=== PATIENT | female | born 1990 | race Caucasian/White ===

== ENCOUNTER 2022-01-06 19:54 | Emergency (ER) | payer OTHER, MEDICAID, SELFPAY ==
[2022-01-06 20:01] VITALS: BP 136/80; PULSE 87; RESP 20; TEMP 36.7; O2SAT 97; BMI 25.3
[2022-01-06 20:29] LABS: Add Manual Diff / Slide Review NO; Basophils Absolute Auto 100 /uL (0-100); Basophils Percent Auto 0.9 % (0-2); Eosinophils Absolute Auto 100 /uL (0-450); Eosinophils Percent Auto 1.1 % (2-4); Hematocrit 42.4 % (36-46); Hemoglobin 14.1 g/dL (12.0-16.0); Lymphocytes Absolute Auto 2800 /uL (1100-4500); Lymphocytes Percent Auto 40.3 % (25-40); Mean Corpuscular HGB Conc 33.3 % (30-36); Mean Corpuscular Hemoglobin 28.8 PG (26-34); Mean Corpuscular Volume 86.4 fL (80-100); Monocytes Absolute Auto 500 /uL (0-900); Monocytes Percent Auto 7.2 % (3-14); Neutrophils Absolute Auto 3500 /uL (1500-7000); Neutrophils Percent Auto 50.5 % (50-75); Platelet Count 252 X10^3/uL (150-400); Red Cell Distribution Width 13.8 % (11.6-14.8); White Blood Cell Count 6.9 X10^3/uL (4.5-11.0)
[2022-01-06 20:50] LABS: Alanine Aminotransferase 35 IU/L (<35); Albumin 5.2 g/dL (3.5-5.0); Albumin Globulin Ratio 1.5 (1.0-2.8); Alkaline Phosphatase 54 U/L (38-126); Aspartate Aminotransferase 30 IU/L (14-36); BUN Creatinine Ratio 9.7 (6-22); Bilirubin Total 0.7 mg/dL (0.2-1.3); Blood Urea Nitrogen 7 mg/dL (7-17); Calcium 9.4 mg/dL (8.4-10.2); Carbon Dioxide 26 mmol/L (22-32); Chloride 103 mmol/L (98-107); Estimated Glomerular Filt Rate > 60 mL/min (>60); Globulin 3.5 g/dL (1.7-4.1); Glucose 94 mg/dL (70-100); HEMOLYSIS 21 (0-50); Potassium 3.7 mmol/L (3.4-5.1); Sodium 140 mmol/L (137-145); Total Protein 8.7 g/dL (6.3-8.2)
--- NOTE | 2022-01-06 21:35 | ED.GIBLEED ---
HPI - GI Bleed General Chief complaint: GI Bleed Stated complaint: blood in stool, has hx of hemorroids Time Seen by Provider: 01/06/22 21:23 Source: patient Mode of arrival: Ambulatory History of Present Illness HPI Narrative: Patient is a 31-year-old female. Has a history of blood in her stool and also history of hemorrhoids. Has had a colonoscopy recently because of this. Is here for evaluation of multiple episodes of diarrhea and blood in her stool. She is also having discomfort with going to the bathroom. She also did pass out a couple days ago. Is also having some abdominal discomfort. Related Data Allergies Allergy/AdvReac Type Severity Reaction Status Date / Time acetaminophen Allergy Severe Hives Verified 01/06/22 20:01 diphenhydramine Allergy Hives Verified 01/06/22 20:01 [From Benadryl] metoclopramide [From Reglan] Allergy Hives Verified 01/06/22 20:01 Review of Systems Constitutional Constitutional: Denies fever(s) Cardiovascular Cardiovascular: Reports system reviewed and no additional complaints, except as documented Respiratory Respiratory: Reports system reviewed and no additional complaints, except as documented Gastrointestinal Gastrointestinal: Reports as per HPI and Reports system reviewed and no additional complaints, except as documented Genitourinary Genitourinary: Denies dysuria Integumentary/Breasts Skin/Breast: Reports system reviewed and no additional complaints, except as documented Neurologic Neurologic: Reports system reviewed and no additional complaints, except as documented Hematologic/Lymphatic On Anticoagulants: No Patient History Medical History Hemorrhoids Social History Smoking Status: Never smoker Smoking Status: Never smoker Substance Use Type: does not use Exam Initial Vital Signs Initial Vital Signs: Vital Signs Temperature 98.1 F 01/06/22 20:01 Pulse Rate 87 01/06/22 20:01 Respiratory Rate 20 01/06/22 20:01 Blood Pressure 136/80 01/06/22 20:01 Pulse Oximetry 97 01/06/22 20:01 Const General: cooperative and comfortable HENMT Head: normal to inspection Resp Effort & Inspection: normal respiratory effort Cardio Rate: regular rate GI Rectal Exam: fissure and hemorrhoids (Internal hemorrhoid) Skin General: no rashes or lesions noted Neuro General: patient alert, patient awake and moves all extremities Extrem General: normal to inspection and capillary refill normal Course Orders Ordered: ED Orders 01/06/22 20:08 EKG-12 Lead Stat 01/06/22 20:17 Complete Blood Count AUTO DIFF Stat Comprehensive Metabolic Panel Stat Vital Signs Vital signs: Vital Signs - 8 hr 01/06/22 21:52 Pulse Rate 74 Blood Pressure 130/79 Pulse Oximetry 100 MDM - GI Bleed Lab Data Attestation: I reviewed the patient's lab results. Result diagrams: 01/06/22 20:17 01/06/22 20:17 Labs: Lab Results 01/06/22 01/06/22 Range/Units 20:17 20:17 WBC 6.9 (4.5-11.0) X10^3/uL RBC 4.90 (4.0-5.2) X10^6/uL Hgb 14.1 (12.0-16.0) g/dL Hct 42.4 (36-46) % MCV 86.4 (80-100) fL MCH 28.8 (26-34) PG MCHC 33.3 (30-36) % RDW 13.8 (11.6-14.8) % Plt Count 252 (150-400) X10^3/uL Neut % (Auto) 50.5 (50-75) % Lymph % (Auto) 40.3 H (25-40) % [place] % (Auto) 7.2 (3-14) % Eos % (Auto) 1.1 L (2-4) % Baso % (Auto) 0.9 (0-2) % Neut # (Auto) 3500 (1865-0200) /uL Lymph # (Auto) 2800 (2654-5534) /uL [place] # (Auto) 500 (0-900) /uL Eos # (Auto) 100 (0-450) /uL Baso # (Auto) 100 (0-100) /uL Sodium 140 (137-145) mmol/L Potassium 3.7 (3.4-5.1) mmol/L Chloride 103 (98-107) mmol/L Carbon Dioxide 26 (22-32) mmol/L BUN 7 (7-17) mg/dL Creatinine 0.72 (0.52-1.04) mg/dL Estimated GFR > 60 (>60) mL/min BUN/Creatinine Ratio 9.7 (6-22) Glucose 94 (70-100) mg/dL Calcium 9.4 (8.4-10.2) mg/dL Total Bilirubin 0.7 (0.2-1.3) mg/dL AST 30 (14-36) IU/L ALT 35 H (<35) IU/L Alkaline Phosphatase 54 (38-126) U/L Total Protein 8.7 H (6.3-8.2) g/dL Albumin 5.2 H (3.5-5.0) g/dL Globulin 3.5 (1.7-4.1) g/dL Albumin/Globulin Ratio 1.5 (1.0-2.8) Point of Care Testing Test Results Negative Urine Dip Bedside Urine Glucose Negative Bedside Urine Bilirubin - Negative Bedside Urine Ketone - Negative Urine Specific [place] 1.030 Bedside Urine Occult Blood - Negative Bedside Urine pH 6.0 Bedside Urine Protein - Negative Bedside Urine Urobilinogen - Negative Bedside Urine Nitrite - Negative Bedside Urine Leukocytes - Negative Esterase MDM Narrative Medical decision making narrative: Labs unremarkable, vital signs unremarkable, she does have what appears to be Herman and also a palpable internal hemorrhoid which very well could be the cause of her presenting symptoms. She otherwise has a benign exam. No indication for blood transfusion. We can hold on a CT scan for now as I have very low suspicion for an acute intra-abdominal surgical issue given her clinical presentation in her exam. Rectal exam was performed with nursing staff at bedside as a hospitalist nocturnist physician. Patient was given return precautions and follow-up instructions. She expressed understanding and agreement. Discharge Plan Departure Patient Disposition: Home Clinical Impression: Hemorrhoids, Bright red rectal bleeding Instructions: DI for Hemorrhoids, Gastrointestinal Bleeding Activity Restrictions/Additional Instructions: I do recommend that you continue to follow all the instructions given to you by the GI providers. You can give them a call to let them know that your symptoms have returned. You can also tried anti diarrheal medicine such as Imodium/loperamide. Return to the emergency department for any new or worsening symptoms.
[2022-01-06 21:52] VITALS: BP 130/79; PULSE 74; O2SAT 100
== END 2022-01-06 21:53 | disposition home or self-care (01) ==
PROVIDERS: Emergency Provider Emergency Medicine
DX: K62.5 Hemorrhage of anus and rectum (principal); K64.8 Other hemorrhoids
CPT/HCPCS: 36415; 80053; 81003; 81025; 85025; 93005; 99283

== ENCOUNTER 2022-03-17 20:37 | Emergency (ER) | payer OTHER, MEDICAID, SELFPAY ==
[2022-03-17 20:47] VITALS: BP 104/63; PULSE 89; RESP 14; TEMP 36.3; O2SAT 96; BMI 24.0
[2022-03-17 22:42] LABS: RBC Urine 0-1/HPF (0-5/HPF); Squamous Epithelial Cell Urine 0-1 /HPF (0-5/HPF); WBC Urine 30-100/HPF (0-5/HPF)
[2022-03-17 22:43] LABS: Bacteria Urine Moderate (10-30); Culture Indicated Urine Specimen Cultured
--- NOTE | 2022-03-17 23:33 | ED.FEMALEGU ---
HPI - Female Genitourinary General Chief complaint: Urogenital-Female Stated complaint: bloody urine, pain x 5 days Time Seen by Provider: 03/17/22 23:28 Source: patient Mode of arrival: Ambulatory History of Present Illness HPI Narrative: Patient here for urinary frequency urgency and dysuria for the past 5 days. History UTI in the past. Denies any fever. No CVA pain. Has had hematuria. She does have a family doctor but has not had time to see family doctor due to school and taking care of family. Related Data Previous Rx's Medication Instructions Recorded nitrofurantoin 100 mg PO Q12H 3 days #6 caps 03/17/22 monohydrate/macrocrystals 100 mg capsule (Macrobid) Allergies Allergy/AdvReac Type Severity Reaction Status Date / Time acetaminophen Allergy Severe Hives Verified 01/06/22 20:01 diphenhydramine Allergy Hives Verified 01/06/22 20:01 [From Benadryl] metoclopramide [From Reglan] Allergy Hives Verified 01/06/22 20:01 Review of Systems Review of Systems Narrative: GENERAL: Denies chills, fatigue, malaise, fever, sweats. HEENT: Denies sinus pain, ear pain, sore throat RESPIRATORY: Denies dyspnea, cough CARDIOVASCULAR: Denies chest pain, palpitations GASTROINTESTINAL: Denies nausea, vomiting, abdominal pain : Positive for urgency and dysuria, frequency, hematuria MUSCULOSKELETAL: denies muscle or bony pain SKIN: Denies rash, skin lesions NEUROLOGIC: Denies weakness, numbness ROS Unobtainable: All systems reviewed & are unremarkable except as noted in HPI and below Patient History Medical History Hemorrhoids alcohol intake frequency: a few times a week Substance Use Type: does not use Exam Narrative Exam Narrative: GENERAL: in no distress, not toxic not dyspneic HEAD: Normocephalic. EYES: Pupils equal round No scleral icterus. ENT: Mucous membranes moist. NECK: Trachea midline. GASTROINTESTINAL: Abdomen soft, non-tender, bowel sounds present no peritoneal signs. EXTREMITIES: No gross deformities. BACK: No flank tenderness. NEURO: AOx4. SKIN: Warm and dry PSYCH: Not anxious, is cooperative Initial Vital Signs Initial Vital Signs: Vital Signs Temperature 97.4 F L 03/17/22 20:47 Pulse Rate 89 03/17/22 20:47 Respiratory Rate 14 03/17/22 20:47 Blood Pressure 104/63 03/17/22 20:47 Pulse Oximetry 96 03/17/22 20:47 Oxygen Delivery Method 03/17/22 20:47 Course Course Course Narrative: No new issues during course of stay Orders Ordered: ED Orders 03/17/22 22:22 Urine Culture Stat Urine Microscopic Stat Discontinued Medications Nitrofurantoin Macrocrystals (Nitrofurantoin Er 100 Mg Capsule) 100 mg PO NOW ONE Stop: 03/17/22 23:34 Last Admin: 03/17/22 23:42 Dose: 100 mg Documented By: BRIAN Phenazopyridine HCl (Phenazopyridine 100 Mg Tablet) 100 mg PO NOW ONE Stop: 03/17/22 23:33 Last Admin: 03/17/22 23:42 Dose: 100 mg Documented By: BRIAN Reevaluation(s) Reevaluation #1: Reviewed results with patient. In no distress. Agrees with treatment plan. She does have a family doctor to follow up with. Time: 23:40 Vital Signs Vital signs: Vital Signs - 8 hr 03/17/22 23:47 Pulse Rate 72 Respiratory Rate 14 Blood Pressure 132/78 Pulse Oximetry 99 Oxygen Delivery Method Room Air MDM - Female Genitourinary Differential Diagnosis Differential diagnosis: Likely urinary tract infection and cystitis Lab Data Labs: Lab Results 03/17/22 Range/Units 22:22 Urine RBC 0-1/hpf (0-5/HPF) Urine WBC 30-100/hpf H (0-5/HPF) Ur Squamous Epith Cells 0-1 /hpf (0-5/HPF) Urine Bacteria Moderate (10-30) H (None) Ur Culture Indicated? Specimen cultured Point of Care Testing Test Results Negative Urine Dip Bedside Urine Glucose Negative Bedside Urine Bilirubin ++ 2 Bedside Urine Ketone - Negative Urine Specific [place] 1.015 Bedside Urine Occult Blood ++ Bedside Urine pH 6.5 Bedside Urine Protein + 30 Bedside Urine Urobilinogen 2+ 4mg Bedside Urine Nitrite + Positive Bedside Urine Leukocytes ++ 125 Esterase [facility] Narrative Medical decision making narrative: Appropriate for discharge home. Treat clinically for UTI. No imaging or blood work indicated. Patient has had UTIs in the past. Nontoxic. No fever here. No CT scan imaging indicated. Return precautions reviewed with patient. Patient does have a family doctor. She desires discharge home. Antibiotics started here in the department Discharge Plan Departure Patient Disposition: Home Clinical Impression: Urinary tract infection Instructions: DI for Urinary Tract Infection (UTI) Activity Restrictions/Additional Instructions: See family doctor next week for recheck. Return if worsening questions or concerns. Keep well hydrated. Prescription for antibiotics has been provided for you. Be sure to complete the antibiotics. Prescriptions: New nitrofurantoin monohyd/m-cryst [Macrobid] 100 mg capsule 100 mg PO Q12H 3 Days Qty: 6 0RF Rx Instructions: must administer with a meal/food Referrals: Renetta Mckeon ARNP [Primary Care Provider] - Visit Report Forms: Patient Portal/API
[2022-03-17] MEDS: NITROFURANTOIN ER 100 MG CAPSULE PO (23:42)
[2022-03-17] MEDS: PHENAZOPYRIDINE 100 MG TABLET PO (23:42)
[2022-03-17 23:47] VITALS: BP 132/78; PULSE 72; RESP 14; O2SAT 99
== END 2022-03-17 23:48 | disposition home or self-care (01) ==
PROVIDERS: Emergency Provider Emergency Medicine; PCP Nurse Practitioner Family
DX: N39.0 Urinary tract infection, site not specified (principal)
CPT/HCPCS: 81003; 81015; 81025; 87077; 87086; 87186; 99283

== ENCOUNTER 2022-04-27 09:12 | Emergency (ER) | payer OTHER, MEDICAID, SELFPAY ==
[2022-04-27 09:15] VITALS: BP 104/86; PULSE 85; RESP 15; TEMP 36.9; O2SAT 98; BMI 24.9
[2022-04-27 10:14] LABS: COVID19 -Nasal RAPID Negative (Negative)
[2022-04-27 11:12] VITALS: BP 110/69; PULSE 80
[2022-04-27 11:15] VITALS: BP 110/57; PULSE 87; RESP 17; O2SAT 98
[2022-04-27 12:20] VITALS: BP 110/69; PULSE 80; RESP 20; O2SAT 98
--- NOTE | 2022-04-27 12:42 | ED.URI ---
HPI - URI/Sore Throat General Chief Complaint: Upper Respiratory Symptoms Stated Complaint: Vomiting, sore throat, shaking, dehydrated Time Seen by Provider: 04/27/22 12:03 Source: patient Mode of arrival: Ambulatory History of Present Illness HPI Narrative: 31-year-old female, nonsmoker, presents emergency department with complaints of fatigue, night sweats, sore throat and constipation x2 days. Patient has a sick infant at home and is a online college student. Patient lives with her parents, who live in a separate part of the house. Patient endorses mild lower abdominal pain but denies any dysuria, frequency or urgency. Last menstrual period was over 3 weeks ago. Patient denies any known exposure to anyone else ill. Related Data Allergies Allergy/AdvReac Type Severity Reaction Status Date / Time acetaminophen Allergy Severe Hives Verified 04/27/22 09:15 diphenhydramine Allergy Hives Verified 04/27/22 09:15 [From Benadryl] metoclopramide [From Reglan] Allergy Hives Verified 04/27/22 09:15 Review of Systems Review of Systems Narrative: Narrative: GENERAL: Denies chills. See HPI HEENT: Denies sinus pain, ear pain, difficulty swallowing, dizziness. RESPIRATORY: Denies dyspnea, cough, wheezing, sputum. CARDIOVASCULAR: Denies chest pain, palpitations, edema. GASTROINTESTINAL: Denies nausea, vomiting, diarrhea. : Denies dysuria, frequency, incontinence, hematuria, urinary retention, flank pain. MSK: Denies weakness, joint pain, or bony pain. SKIN: Denies rash, skin lesions, or pruritis. NEUROLOGIC: Denies weakness, dizziness, headache, numbness, confusion. PSYCHIATRIC: No concerning psychosocial issues. Patient History Medical History Hemorrhoids Social History Smoking Status: Never smoker Smoking Status: Never smoker alcohol intake frequency: holidays/special occasions only Substance Use Type: marijuana Exam Narrative Exam Narrative: Exam Narrative: GENERAL: This is a well-nourished, well-developed patient, in no acute distress HEAD: Atraumatic. Normocephalic. EYES: Pupils equal round and reactive. Extraocular motions intact. No scleral icterus, injection or drainage. ENT: Nose without bleeding, purulent drainage. Throat without erythema, tonsillar hypertrophy or exudate. Airway patent. NECK: Trachea midline. No JVD or lymphadenopathy. Nontender. CARDIOVASCULAR: Regular rate and rhythm without murmurs, peripheral pulses intact, cap refill <2 sec. RESPIRATORY: Breath sounds equal and clear bilaterally. No wheezes, rales, or rhonchi. No cough. No increased respiratory effort. No accessory muscle use. GASTROINTESTINAL: Abdomen soft, mild lower abdominal discomfort and according to patient is distended. No guarding or rebound. No suprapubic pain. MSK: Moves all extremities. Normal range of motion, no clubbing or edema. Neurovascularly intact. NEURO: A&O x 3. SKIN: Warm, dry, no rashes or lesions noted. Initial Vital Signs Initial Vital Signs: Vital Signs Temperature 98.4 F 04/27/22 09:15 Pulse Rate 85 04/27/22 09:15 Respiratory Rate 15 04/27/22 09:15 Blood Pressure 104/86 04/27/22 09:15 Pulse Oximetry 98 04/27/22 09:15 Oxygen Delivery Method 04/27/22 09:15 Reviewed Course Orders Ordered: ED Orders 04/27/22 09:39 COVID19 -Nasal RAPID/Pre-Proc Stat Vital Signs Vital signs: Vital Signs - 8 hr 04/27/22 09:15 04/27/22 11:15 04/27/22 12:20 Temperature 98.4 F Pulse Rate 85 87 80 Respiratory Rate 15 17 20 Blood Pressure 104/86 110/57 L 110/69 Pulse Oximetry 98 98 98 Oxygen Delivery Method Room Air Room Air 04/27/22 11:12 Temperature Pulse Rate 80 Respiratory Rate Blood Pressure 110/69 Pulse Oximetry Oxygen Delivery Method MDM - URI/Sore Throat Differential Diagnosis Differential diagnosis: Likely upper respiratory infection Lab Data Labs: Lab Results 04/27/22 Range/Units 09:39 SARS-CoV-2 (PCR) Negative (Negative) Point of Care Testing Test Results Negative Urine Dip Bedside Urine Glucose Negative Bedside Urine Bilirubin - Negative Bedside Urine Ketone - Negative Urine Specific [place] 1.020 Bedside Urine Occult Blood - Negative Bedside Urine pH 6.0 Bedside Urine Protein - Negative Bedside Urine Urobilinogen - Negative Bedside Urine Nitrite - Negative Bedside Urine Leukocytes - Negative Esterase MDM Narrative Medical decision making narrative: 31-year-old female presents to the emergency department with complaints of viral-like symptoms. COVID test was negative. Urine test was negative for UTI or . Discussed plan of care with patient and to her decision-making, we will treat this as a viral infection with strict return precautions. Instructed patient to rest, hydrate and use [id number] medications as needed for comfort. Patient will follow-up with her GI doctor for her constipation. Patient was agreeable with course of action. Discharge Plan Departure Patient Disposition: Home Clinical Impression: Viral infection Activity Restrictions/Additional Instructions: *You have been diagnosed with a viral illness. Your COVID test was negative. Your urine test was negative for a UTI or . As we discussed, I believe your son may have given you his viral illness and we will treat your symptoms the same as his. Make sure you hydrate well, Tylenol or ibuprofen as needed for discomfort and get plenty of rest. Please follow-up with your GI doctor about your constipation in case they want to manipulate your current medications. For any worsening symptoms, that include increased pain, difficulty breathing, etc. please return to the emergency department immediately. *What to do: *Please continue to take your regular medications as directed. [ ] New medication prescriptions sent to your pharmacy: [ ] [ ] New medication written as a paper prescription [ x] No new medications given *Please follow up with your primary care provider in 2-3 days, call for an appointment. Let them know you were seen in the Emergency Department and that we ask that you be seen in follow up. We will electronically transmit a record of today's note if your PCP is in our system *If you do not have a primary care provider please contact the [facility] Resource line at [phone]. They will ask some questions about your medical history and help get you set up with a doctor in the community. ? Return to ER if you should have any new, worsening or concerning symptoms, such as worsening pain, severe headache, confusion, chest pain, difficulty breathing, fever greater than 101 F, shaking chills, persistent vomiting to the point that you cannot drink fluids, or other new or worsening symptoms. Referrals: Renetta Mckeon ARNP [Primary Care Provider] - Visit Report Forms: Patient Portal/API
[2022-04-27 13:16] VITALS: O2SAT 100
[2022-04-27 13:17] VITALS: BP 145/81; PULSE 107; O2SAT 94
== END 2022-04-27 13:18 | disposition home or self-care (01) ==
PROVIDERS: Emergency Medicine; Emergency Provider Registered Nurse; PCP Nurse Practitioner Family
DX: B34.9 Viral infection, unspecified (principal); Z20.822 Contact with and (suspected) exposure to COVID-19
CPT/HCPCS: 81003; 81025; 87635; 99282; C9803

== ENCOUNTER 2022-07-31 21:37 | Emergency (ER) | payer OTHER, MEDICAID, SELFPAY ==
[2022-07-31 21:46] VITALS: BP 121/65; PULSE 87; RESP 18; TEMP 35.9; O2SAT 100; BMI 25.7
[2022-07-31 22:20] LABS: Bacteria Urine Few (2-10); RBC Urine 0-1/HPF (0-5/HPF); Squamous Epithelial Cell Urine 0-1 /HPF (0-5/HPF); WBC Urine 10-30/HPF (0-5/HPF)
[2022-07-31 22:21] LABS: Culture Indicated Urine Specimen Cultured
--- NOTE | 2022-07-31 23:37 | ED.GENADULT ---
HPI - General Adult General Chief complaint: Urogenital-Female Stated complaint: BLADDER INFECTION Time Seen by Provider: 07/31/22 23:32 Source: patient Mode of arrival: Ambulatory History of Present Illness HPI narrative: 31-year-old female here for evaluation of approximately 24 hours which she describes as urinary tract infection to include urinary frequency and urgency. She has had multiple infections in the past. No back pain. No vomiting. Related Data Previous Rx's Medication Instructions Recorded sulfamethoxazole 800 1 tab PO BID 3 days #6 tabs 07/31/22 mg-trimethoprim 160 mg tablet (Bactrim DS) Allergies Allergy/AdvReac Type Severity Reaction Status Date / Time acetaminophen Allergy Severe Hives Verified 04/27/22 09:15 diphenhydramine Allergy Hives Verified 04/27/22 09:15 [From Benadryl] metoclopramide [From Reglan] Allergy Hives Verified 04/27/22 09:15 Review of Systems Constitutional Constitutional: Reports system reviewed and no additional complaints, except as documented Genitourinary Genitourinary: Reports system reviewed and no additional complaints, except as documented Musculoskeletal Musculoskeletal: Reports system reviewed and no additional complaints, except as documented Patient History Medical History Hemorrhoids Social History Smoking Status: Never smoker Smoking Status: Never smoker alcohol intake frequency: holidays/special occasions only Substance Use Type: marijuana Exam Initial Vital Signs Initial Vital Signs: Vital Signs Temperature 96.7 F L 07/31/22 21:46 Pulse Rate 87 07/31/22 21:46 Respiratory Rate 18 07/31/22 21:46 Blood Pressure 121/65 07/31/22 21:46 Pulse Oximetry 100 07/31/22 21:46 Oxygen Delivery Method 07/31/22 21:46 Resp Effort & Inspection: normal respiratory effort Cardio Rate: regular rate GI Inspection: normal to inspection Course Orders Ordered: ED Orders 07/31/22 21:50 Urine Culture Stat Urine Microscopic Stat Discontinued Medications Trimethoprim/Sulfamethoxazole (Trimeth/Sulfa 160/800 (Ds) Tablet) 1 tab PO NOW ONE Stop: 07/31/22 23:38 Last Admin: 07/31/22 23:47 Dose: 1 tab Documented By: SAGAR Vital Signs Vital signs: Vital Signs - 8 hr 11/12/22 21:46 07/31/22 23:55 Temperature 96.7 F L 97.4 F L Pulse Rate 87 64 Respiratory Rate 18 14 Blood Pressure 121/65 104/60 Pulse Oximetry 100 100 Oxygen Delivery Method Room Air Room Air Medical Decision Making Lab Data Labs: Lab Results 07/31/22 Range/Units 21:50 Urine RBC 0-1/hpf (0-5/HPF) Urine WBC 10-30/hpf H (0-5/HPF) Ur Squamous Epith Cells 0-1 /hpf (0-5/HPF) Urine Bacteria Few (2-10) H (None) Ur Culture Indicated? Specimen cultured Point of Care Testing Test Results Negative Urine Dip Bedside Urine Glucose Negative Bedside Urine Bilirubin - Negative Bedside Urine Ketone - Negative Urine Specific [place] 1.025 Bedside Urine Occult Blood - Negative Bedside Urine pH 6.0 Bedside Urine Protein +/- 15 Bedside Urine Urobilinogen - Negative Bedside Urine Nitrite - Negative Bedside Urine Leukocytes +/- 15 Esterase Point of care testing: Point of Care Testing Test Results Negative Urine Dip Bedside Urine Glucose Negative Bedside Urine Bilirubin - Negative Bedside Urine Ketone - Negative Urine Specific [place] 1.025 Bedside Urine Occult Blood - Negative Bedside Urine pH 6.0 Bedside Urine Protein +/- 15 Bedside Urine Urobilinogen - Negative Bedside Urine Nitrite - Negative Bedside Urine Leukocytes +/- 15 Esterase MDM Narrative Medical decision making narrative: History physical exam and also urinalysis consistent with urinary tract infection. Prior urine culture does show E coli that was sensitive to Bactrim. Will place her on Bactrim. Was given a dose here in the ER. No indications for admission hospital. She was given return precautions. She expressed understanding and agreement. Discharge Plan Departure Patient Disposition: Home Clinical Impression: Urinary tract infection Instructions: DI for Urinary Tract Infection (UTI) Activity Restrictions/Additional Instructions: A prescription for an antibiotic was sent to [facility] per your request. Please start taking it as directed. Increase your fluid intake. Return to the emergency department for any new or worsening symptoms. Prescriptions: New sulfamethoxazole-trimethoprim [Bactrim DS] 800-160 mg tablet 1 tab PO BID 3 Days Qty: 6 0RF Referrals: Renetta Mckeon ARNP [Primary Care Provider] - Visit Report Forms: Patient Portal/API
[2022-07-31] MEDS: TRIMETH/SULFA 160/800 (DS) TABLET 1 TAB PO (23:47)
[2022-07-31 23:55] VITALS: BP 104/60; PULSE 64; RESP 14; TEMP 36.3; O2SAT 100
== END 2022-07-31 23:59 | disposition home or self-care (01) ==
PROVIDERS: Emergency Provider Emergency Medicine; PCP Nurse Practitioner Family
DX: N39.0 Urinary tract infection, site not specified (principal)
CPT/HCPCS: 81003; 81015; 81025; 87086; 99283

== ENCOUNTER 2023-02-09 18:42 | Emergency (ER) | payer OTHER, MEDICAID, SELFPAY ==
--- NOTE | 2023-02-09 18:46 | PC.NURSE ---
in restroom when called.
[2023-02-09 18:54] VITALS: BP 154/91; PULSE 97; RESP 19; TEMP 36.8; O2SAT 99; BMI 27.3
[2023-02-09 20:58] LABS: Urine N gonorrhoeae NOT DETECTED
[2023-02-09 21:19] LABS: Urine Chlamydia NOT DETECTED
--- NOTE | 2023-02-09 21:43 | ED.GENADULT ---
HPI - General Adult General Chief complaint: Urogenital-Female Stated complaint: thinks poss uti/sti/bladder infection Time Seen by Provider: 02/09/23 21:41 Source: patient Mode of arrival: Family Vehicle History of Present Illness HPI narrative: Patient is a 32-year-old female who is here for evaluation of several days of vaginal discharge and odor. She is not having any urinary symptoms. No blood in her urine. She states she would very similar symptoms a couple months ago where she was treated for bacterial vaginosis with an antibiotic and she states the symptoms went completely away. She now has return of the symptoms. Is having some pelvic discomfort. No nausea vomiting. No change in bowel habits. Has not tried anything for the symptoms prior to arrival. Related Data Previous Rx's Medication Instructions Recorded metronidazole 500 mg tablet 500 mg PO BID 7 days #14 tabs 02/09/23 Allergies Allergy/AdvReac Type Severity Reaction Status Date / Time acetaminophen Allergy Severe Hives Verified 02/09/23 19:02 diphenhydramine Allergy Hives Verified 02/09/23 19:02 [From Benadryl] metoclopramide [From Reglan] Allergy Hives Verified 02/09/23 19:02 Review of Systems Constitutional Constitutional: Reports system reviewed and no additional complaints, except as documented Gastrointestinal Gastrointestinal: Reports system reviewed and no additional complaints, except as documented Genitourinary Genitourinary: Reports system reviewed and no additional complaints, except as documented Integumentary/Breasts Skin/Breast: Reports system reviewed and no additional complaints, except as documented Patient History Medical History Hemorrhoids Social History Smoking Status: Never smoker Smoking Status: Never smoker alcohol intake frequency: holidays/special occasions only Substance Use Type: marijuana Exam Initial Vital Signs Initial Vital Signs: Vital Signs Temperature 98.2 F 02/09/23 18:54 Pulse Rate 97 H 02/09/23 18:54 Respiratory Rate 19 02/09/23 18:54 Blood Pressure 154/91 H 02/09/23 18:54 Pulse Oximetry 99 02/09/23 18:54 Oxygen Delivery Method Room Air 02/09/23 18:54 Const General: cooperative, comfortable and No ill appearing GI Inspection: normal to inspection and non-distended Palpation: soft, No firm, No guarding and tender (Very low suprapubic area) Neuro General: patient alert, patient awake and moves all extremities Course Orders Ordered: ED Orders 02/09/23 19:19 Chlamydia Gonorrhea PCR -URINE Stat Discontinued Medications Metronidazole (Metronidazole 500 Mg Tablet) 500 mg PO NOW ONE Stop: 02/09/23 21:43 Last Admin: 02/09/23 21:49 Dose: 500 mg Documented By: JAIMIE Ondansetron HCl (Ondansetron 4 Mg Odt) 4 mg SL NOW PRN PRN Reason: Nausea And Vomiting Ondansetron HCl (Ondansetron 4 Mg/2 Ml Inj) 4 mg IV NOW PRN PRN Reason: Nausea And Vomiting Vital Signs Vital signs: Vital Signs - 8 hr 02/09/23 18:54 02/09/23 21:52 Temperature 98.2 F Pulse Rate 97 H 78 Respiratory Rate 19 16 Blood Pressure 154/91 H 137/89 Pulse Oximetry 99 99 Oxygen Delivery Method Room Air Room Air Medical Decision Making Lab Data Labs: Lab Results 02/09/23 Range/Units 19:19 Ur Chlamydia DNA (PCR) Not detected N gonorrhoeae DNA (PCR) Not detected Point of Care Testing Test Results Negative Urine Dip Bedside Urine Glucose Negative Bedside Urine Bilirubin - Negative Bedside Urine Ketone - Negative Urine Specific [place] 1.015 Bedside Urine Occult Blood - Negative Bedside Urine pH 7.5 Bedside Urine Protein - Negative Bedside Urine Urobilinogen - Negative Bedside Urine Nitrite - Negative Bedside Urine Leukocytes - Negative Esterase Point of care testing: Point of Care Testing Test Results Negative Urine Dip Bedside Urine Glucose Negative Bedside Urine Bilirubin - Negative Bedside Urine Ketone - Negative Urine Specific [place] 1.015 Bedside Urine Occult Blood - Negative Bedside Urine pH 7.5 Bedside Urine Protein - Negative Bedside Urine Urobilinogen - Negative Bedside Urine Nitrite - Negative Bedside Urine Leukocytes - Negative Esterase [facility] Narrative Medical decision making narrative: Her urinalysis today is negative in her GC chlamydia are negative. Low suspicion for PID. Her symptoms today are very similar to her prior diagnosis of bacterial vaginosis. We decided to forego a pelvic exam given her presentation and her prior history. She understands that we potentially could be missing another diagnosis but I do feel that this is unlikely given her presentation. No indication for any radiologic studies. She is not having any skin rash or any other lesions in the vaginal area. She was given a 1st dose of medications here in the emergency department. She will return to the emergency department for any new or worsening symptoms. Discharge Plan Departure Patient Disposition: Home Clinical Impression: Bacterial vaginosis Instructions: DI for Bacterial Vaginosis Activity Restrictions/Additional Instructions: A prescription for antibiotics was sent to the pharmacy of your choice. I recommend that you start taking them as directed. If your symptoms are not improving then you absolutely need to be re-evaluated like we discussed. Return to the emergency department for new symptoms. Prescriptions: New metronidazole 500 mg tablet 500 mg PO BID 7 Days Qty: 14 0RF Referrals: Renetta Mckeon ARNP [Primary Care Provider] - Stand Alone Forms: Patient Portal/API
[2023-02-09] MEDS: metroNIDAZOLE 500 MG TABLET PO (21:49)
[2023-02-09 21:52] VITALS: BP 137/89; PULSE 78; RESP 16; O2SAT 99
== END 2023-02-09 21:52 | disposition home or self-care (01) ==
PROVIDERS: Emergency Provider Emergency Medicine; PCP Nurse Practitioner Family
DX: N76.0 Acute vaginitis (principal)
CPT/HCPCS: 81003; 81025; 87491; 87591; 99283

== ENCOUNTER 2023-03-25 14:08 | Emergency (ER) | payer OTHER, MEDICAID, SELFPAY ==
[2023-03-25 14:17] VITALS: BP 128/82; PULSE 99; RESP 18; TEMP 37; O2SAT 100; BMI 31.1
[2023-03-25 14:42] LABS: Bacteria Urine Occasional (0-1); RBC Urine 0-1/HPF (0-5/HPF); Squamous Epithelial Cell Urine 1-5 /HPF (0-5/HPF); WBC Urine 0-1/HPF (0-5/HPF)
[2023-03-25 16:20] VITALS: BP 114/75; PULSE 85; RESP 18; O2SAT 99
--- NOTE | 2023-03-25 16:59 | ED.FEMALEGU ---
HPI - Female Genitourinary General Chief complaint: Urogenital-Female Stated complaint: vaginal discharge/pain/bloating/frequent urinatio Time Seen by Provider: 03/25/23 14:11 Source: patient Mode of arrival: Ambulatory History of Present Illness HPI Narrative: 32-year-old female nonsmoker with history of nonspecific GI complaints being worked up by Gastroenterology presents with a chief complaint of vaginal burning and discharge as well as urinary frequency, urgency and dysuria. She states that she is sexually active that with the same partner. She denies any fever or chills. She has very minimal if any pelvic or back discomfort. She is had bacterial vaginosis in the past and this feels quite similar, she had previously been treated with Flagyl and had improvement in symptoms. Related Data Previous Rx's Medication Instructions Recorded metronidazole 500 mg tablet 500 mg PO BID 10 days #20 tabs 03/25/23 metronidazole 500 mg tablet 500 mg PO BID 10 days #20 tabs 03/25/23 ondansetron 4 mg disintegrating 4 mg PO TID-QID PRN nausea and 03/25/23 tablet vomiting #10 tabs ondansetron 4 mg disintegrating 4 mg PO TID-QID PRN nausea and 03/25/23 tablet vomiting #10 tabs Allergies Allergy/AdvReac Type Severity Reaction Status Date / Time acetaminophen Allergy Severe Hives Verified 03/25/23 14:22 diphenhydramine Allergy Hives Verified 03/25/23 14:22 [From Benadryl] metoclopramide [From Reglan] Allergy Hives Verified 03/25/23 14:22 Review of Systems Review of Systems Narrative: GENERAL: Denies chills, fatigue, malaise, fever, sweats. HEENT: Denies sinus pain, ear pain, sore throat, difficulty swallowing, dizziness. RESPIRATORY: Denies dyspnea, cough, wheezing, hemoptysis, sputum. CARDIOVASCULAR: Denies chest pain, palpitations, orthopnea, edema, GASTROINTESTINAL: Denies nausea, vomiting, abdominal pain, diarrhea, constipation, melena. : see HPI MUSCULOSKELETAL: denies weakness, joint pain, or bony pain SKIN: Denies rash, skin lesions, or other NEUROLOGIC: Denies weakness, headache, numbness, change in speech, confusion, seizures, incoordination. PSYCHIATRIC: No concerning psychosocial issues. 12 point review of systems is negative except for those stated above Patient History Medical History Hemorrhoids alcohol intake frequency: holidays/special occasions only Substance Use Type: marijuana Exam Narrative Exam Narrative: GENERAL: 32] year old patient appears stated age. Well-developed patient, in mild distress. HEAD: Atraumatic. Normocephalic. EYES: Pupils equal round and reactive. Extraocular motions intact. No scleral icterus. No injection or drainage. ENT: Nose without bleeding, purulent drainage. Throat without erythema, tonsillar hypertrophy or exudate. Airway patent. NECK: Trachea midline. Non tender CARDIOVASCULAR: Regular rate and rhythm without murmurs, gallops, or rubs. RESPIRATORY: Clear to auscultation. Breath sounds equal bilaterally. No wheezes, rales, or rhonchi. GASTROINTESTINAL: Abdomen soft, non-tender, nondistended. EXTREMITIES: No edema or joint tenderness. BACK: Nontender without deformity or crepitance. No flank tenderness. NEURO: AOx3. SKIN: No rash or erythema of visible areas Initial Vital Signs Initial Vital Signs: Vital Signs Temperature 98.6 F 03/25/23 14:17 Pulse Rate 99 H 03/25/23 14:17 Respiratory Rate 18 03/25/23 14:17 Blood Pressure 128/82 03/25/23 14:17 Pulse Oximetry 100 03/25/23 14:17 Oxygen Delivery Method Room Air 03/25/23 14:17 Course Orders Ordered: ED Orders 03/25/23 14:23 Chlamydia Gonorrhea PCR -URINE Stat Urine Culture Stat Urine Microscopic Stat 03/25/23 14:51 Genital Culture Stat Wet Prep Tric BV Emrcy Stat Discontinued Medications Ondansetron HCl (Ondansetron 4 Mg Odt) 4 mg SL NOW PRN PRN Reason: Nausea And Vomiting Ondansetron HCl (Ondansetron 4 Mg/2 Ml Inj) 4 mg IV NOW PRN PRN Reason: Nausea And Vomiting Vital Signs Vital signs: Vital Signs - 8 hr 03/25/23 14:17 03/25/23 16:20 Temperature 98.6 F Pulse Rate 99 H 85 Respiratory Rate 18 18 Blood Pressure 128/82 114/75 Pulse Oximetry 100 99 Oxygen Delivery Method Room Air Room Air MDM - Female Genitourinary Lab Data Labs: Lab Results 03/25/23 03/25/23 Range/Units 14:23 14:23 Urine RBC 0-1/hpf (0-5/HPF) Urine WBC 0-1/hpf (0-5/HPF) Ur Squamous Epith Cells 1-5 /hpf (0-5/HPF) Urine Bacteria Occasional (0-1) (None) Ur Culture Indicated? TNP Ur Chlamydia DNA (PCR) Not detected N gonorrhoeae DNA (PCR) Not detected Point of Care Testing Test Results Negative Urine Dip Bedside Urine Glucose Negative Bedside Urine Bilirubin - Negative Bedside Urine Ketone - Negative Urine Specific [place] 1.015 Bedside Urine pH 8.0 Bedside Urine Protein - Negative Bedside Urine Urobilinogen - Negative Bedside Urine Nitrite - Negative Bedside Urine Leukocytes +/- 15 Esterase MDM Narrative Medical decision making narrative: [32] year old patient presents with vaginal itching, burning and discharge Multiple etiologies for patient's symptoms considered including, but not limited to: [Gonorrhea versus chlamydia versus bacterial vaginosis versus Trichomonas versus urinary tract infection versus other] Prior Charts reviewed in our EMR Primary Historian: patient Labs reviewed and interpreted by myself: Wet prep notes clue cells, no yeast or Trichomonas. Urine negative for gonorrhea and chlamydia. No evidence of UTI Patient's history and physical exam are reassuring. She has vaginal discharge in the absence of systemic complaints. Negative for gonorrhea and chlamydia, presence of clue cells suggests bacterial vaginosis. No sign of UTI. PID considered but thought unlikely given lack of more widespread symptoms. Findings and discharge diagnosis discussed with patient/family followed by verbalization of understanding Return precautions discussed with patient/family whom verbalize understanding of diagnosis and plan Discharge Plan Departure Patient Disposition: Home Clinical Impression: Bacterial vaginosis Instructions: Bacterial Vaginosis Activity Restrictions/Additional Instructions: *You have been diagnosed with [vaginal discharge due to bacterial vaginosis ] *What to do: *Please continue to take your regular medications as directed. [x ] New medication prescriptions sent to your pharmacy: [ [facility]] [ ] New medication written as a paper prescription [ ] No new medications given *Please follow up with your primary care provider in 2-3 days, call for an appointment. Let them know you were seen in the Emergency Department and that we ask that you be seen in follow up. We will electronically transmit a record of today's note if your PCP is in our system *Return to Emergency Department if you should have any new, worsening or concerning symptoms, such as [fever greater than 101 F, shaking chills, worsening pain, persistent vomiting or other bothersome symptoms] Prescriptions: New metronidazole 500 mg tablet 500 mg PO BID 10 Days Qty: 20 0RF ondansetron 4 mg tablet,disintegrating 4 mg PO TID-QID PRN (Reason: nausea and vomiting) Qty: 10 0RF ondansetron 4 mg tablet,disintegrating 4 mg PO TID-QID PRN (Reason: nausea and vomiting) Qty: 10 0RF metronidazole 500 mg tablet 500 mg PO BID 10 Days Qty: 20 0RF Referrals: Renetta Mckeon ARNP [Primary Care Provider] - Stand Alone Forms: Patient Portal/API
[2023-03-25 17:15] LABS: Urine N gonorrhoeae NOT DETECTED
[2023-03-25 17:20] LABS: Urine Chlamydia NOT DETECTED
== END 2023-03-25 17:13 | disposition home or self-care (01) ==
PROVIDERS: Emergency Provider Emergency Medicine; PCP Nurse Practitioner Family
DX: N76.0 Acute vaginitis (principal); B95.1 Streptococcus, group B, as the cause of diseases classified elsewhere
CPT/HCPCS: 81003; 81015; 81025; 87070; 87086; 87147; 87205; 87210; 87252; 87491; 87591; 99282; 99283

== ENCOUNTER 2023-10-02 16:28 | Emergency (ER) | payer OTHER, MEDICAID, SELFPAY ==
--- NOTE | 2023-10-02 16:36 | ED_ITS ---
HPI - General Adult General Chief complaint: Wound/Laceration Stated complaint: animal bite Time Seen by Provider: 10/02/23 16:31 Source: patient Mode of arrival: Ambulatory Limitations: no limitations History of Present Illness HPI narrative: 32-year-old female. Is up-to-date on her tetanus who is here for evaluation of a dog bite. This was a family dog. Apparently the dog becomes very excited when individuals argue. The patient and her mother were having an argument when the dog bit the patient. She has a large wound to her right forearm. Smaller room to her left forearm. The right forearm was bleeding so they applied a tourniquet at home. The covered with a bandage. She states the dog is up-to-date on his immunizations. No other injuries from the event. Related Data Previous Rx's Medication Instructions Recorded ondansetron 4 mg disintegrating 4 mg PO TID-QID PRN nausea and 03/25/23 tablet vomiting #10 tabs ondansetron 4 mg disintegrating 4 mg PO TID-QID PRN nausea and 03/25/23 tablet vomiting #10 tabs amoxicillin 875 mg-potassium 1 tab PO Q12H 5 days #10 tabs 10/02/23 clavulanate 125 mg tablet Allergies Allergy/AdvReac Type Severity Reaction Status Date / Time acetaminophen Allergy Severe Hives Verified 03/25/23 14:22 diphenhydramine Allergy Hives Verified 03/25/23 14:22 [From Benadryl] metoclopramide [From Reglan] Allergy Hives Verified 03/25/23 14:22 Review of Systems Musculoskeletal Musculoskeletal: Reports system reviewed and no additional complaints, except as documented Integumentary/Breasts Skin/Breast: Reports system reviewed and no additional complaints, except as documented Neurologic Neurologic: Reports system reviewed and no additional complaints, except as documented Hematologic/Lymphatic On Anticoagulants: No Patient History Medical History Hemorrhoids Social History Smoking Status: Never smoker Smoking Status: Never smoker alcohol intake frequency: holidays/special occasions only Substance Use Type: marijuana Exam Initial Vital Signs Initial Vital Signs: Vital Signs Temperature 98.5 F 10/02/23 16:44 Pulse Rate 85 10/02/23 16:44 Respiratory Rate 16 01/14/24 16:44 Blood Pressure 116/76 10/02/23 16:44 Pulse Oximetry 99 10/02/23 16:44 Oxygen Delivery Method Room Air 10/02/23 16:44 Cardio Pulses: radial pulses present on the left Skin Other: 6 cm laceration to the ulnar/volar aspect of the right forearm just distal to the elbow. Has a superficial wound to the left forearm volar aspect. Neuro Sensory Exam: no sensory deficits noted Extrem Other: Full range motion of the right elbow in the right wrist Procedures Laceration Repair Laceration 1: Site: upper extremity Side (If applicable): right Size (cm): 6 Description: linear Depth: simple, single layer Local Anesthetic: lidocaine 1% and with epi Amount of anesthesia used (mL): 5 Pre-repair: wound explored, irrigated extensively and deep structures intact Skin layer closed with: nylon Skin layer suture size: 4-0 Number of sutures: 10 Technique: simple, interrupted Course Orders Ordered: Discontinued Medications Bacitracin (Bacitracin Oint 0.9 Gm Pckt) 1 applic TOP NOW ONE Stop: 10/02/23 17:17 Lidocaine/Epinephrine (Lidocaine 2% W/Epi Inj) 20 ml INJ INTRA-OP ONE Stop: 10/02/23 16:37 Last Admin: 10/02/23 16:43 Dose: 20 ml Documented By: CTS Vital Signs Vital signs: Vital Signs - 8 hr 10/02/23 16:44 Temperature 98.5 F Pulse Rate 85 Respiratory Rate 16 Blood Pressure 116/76 Pulse Oximetry 99 Oxygen Delivery Method Room Air Medical Decision Making [facility] Narrative Medical decision making narrative: Patient is up-to-date on her tetanus. The dog is up-to-date on its immunizations. The wound in her right forearm did need to be closed because of how it was gaping open. The wound of the left forearm was just closed with a bandage. We will place the patient on antibiotics. She was given care instructions and return precautions. She expressed understanding and agreement. Discharge Plan Departure Patient Disposition: Home Clinical Impression: Dog bite, Forearm laceration Instructions: DI for Laceration Repair, DI for Dog Bite Activity Restrictions/Additional Instructions: The stitches that were placed today do need to be removed in approximately 7-10 days. This can be done at the walk-in clinic or your primary doctor. Until then you can shower like normal. I would not be surprised if you have some brui sing around the wound as this is normal for animal bites. Take the antibiotics as directed. Return to the emergency department for new symptoms. The prescription for antibiotics was sent to [facility] in [place] Prescriptions: New amoxicillin-pot clavulanate 875-125 mg tablet 1 tab PO Q12H 5 Days Qty: 10 0RF No Action ondansetron 4 mg tablet,disintegrating 4 mg PO TID-QID PRN (Reason: nausea and vomiting) Qty: 10 0RF ondansetron 4 mg tablet,disintegrating 4 mg PO TID-QID PRN (Reason: nausea and vomiting) Qty: 10 0RF Referrals: Renetta Mckeon ARNP [Primary Care Provider] - Stand Alone Forms: Patient Portal/API
[2023-10-02 16:38] VITALS: BP 116/76; PULSE 99; O2SAT 100
[2023-10-02] MEDS: LIDOCAINE 2% W/EPI INJ 20 ML INJ (16:43)
[2023-10-02 16:44] VITALS: BP 116/76; PULSE 85; RESP 16; TEMP 36.9; O2SAT 99; BMI 32.6
[2023-10-02 17:00] VITALS: BP 115/79; PULSE 84; O2SAT 99
[2023-10-02 17:30] VITALS: BP 110/79; PULSE 81; O2SAT 96
[2023-10-02] MEDS: BACITRACIN OINT 0.9 GM PCKT 1 APPLIC TOP (17:31)
== END 2023-10-02 17:25 | disposition home or self-care (01) ==
PROVIDERS: Emergency Provider Emergency Medicine; PCP Nurse Practitioner Family
DX: S51.851A Open bite of right forearm, initial encounter (principal); W54.0XXA Bitten by dog, initial encounter
CPT/HCPCS: 12002; 99283

== ENCOUNTER 2023-10-27 13:35 | Emergency (ER) | payer OTHER, MEDICAID, SELFPAY ==
[2023-10-27] VITALS (7 sets, daily range): BP systolic 98–120; BP diastolic 66–76; PULSE 78–93; RESP 16–18; TEMP 36.6–37.3; O2SAT 96–100; BMI 31.9
--- NOTE | 2023-10-27 14:02 | PC.NURSE ---
Pt emotional, tearful, states this is the 3rd time she's had Covid. C/O achey tiredness x 1 day, nasal congestion and fever. States chest tightness W/ SOB, 100% RA, no retractions, no abdominal breathing.
--- NOTE | 2023-10-27 14:13 | DI.CT.S_ITS ---
PROCEDURE: CT UE RT W CON INDICATIONS: Pain/wound infection TECHNIQUE: After the administration of intravenous contrast, 3 mm axial sections acquired of the right forearm , with coronal and sagittal reformats. COMPARISON: None. FINDINGS: Image quality: Excellent. Bones: No fracture or osseous lesion. Soft tissues: No fluid collections. IMPRESSION: Negative examination. Nonemergent MRI or bone scan is recommended to further assess for osteomyelitis. Dictated by: Julianna Cordero M.D. on 10/27/2023 at 16:20 Approved by: Julianna Cordero M.D. on 10/27/2023 at 16:22
--- NOTE | 2023-10-27 14:17 | ED_ITS ---
HPI - Wound/Laceration <Corwin Portillo MD - Last Filed: 11/03/23 09:02> General Chief Complaint: Upper Respiratory Symptoms Stated Complaint: COVID Symptoms, dog bite 1wk ago Time Seen by Provider: 10/27/23 13:45 Source: patient and EMS Mode of arrival: Ambulatory History of Present Illness HPI narrative: Patient denies . She states she is on nurse cycle now. Patient complains of ongoing body aches and right forearm pain. Patient was seen here October 02, 2023 for dog bite to the right forearm. She was placed on Augmentin. She follow up with primary care and was sent to the [facility] where she states she was admitted overnight after incision drainage of her right forearm by General surgery. Patient was seen by Dr. Jamie Sen, general surgery. Patient had incision and drainage of right forearm wound/closure of forearm wound over a vessel loop. She was discharged on Augmentin again. She had follow up appointment with the office October 18 [facility], wound was healing very well. Culture did indicate moderate growth of Staphylococcus mutans. Light growth of pasteurella cannis, scant growth of Neisseria animaloris. On October 18 in office. Stitches and drain were removed. Patient brought in by ambulance. Patient is very very very anxious. He is very tearful. She states a lot has been going on her life in the past few weeks. She states she has had body wide pain for the past 1 week. She tested positive for COVID at home today. Patient would benefit from anxiolytic. Related Data Previous Rx's Medication Instructions Recorded ondansetron 4 mg disintegrating 4 mg PO TID-QID PRN nausea and 03/25/23 tablet vomiting #10 tabs ondansetron 4 mg disintegrating 4 mg PO TID-QID PRN nausea and 03/25/23 tablet vomiting #10 tabs Allergies Allergy/AdvReac Type Severity Reaction Status Date / Time acetaminophen Allergy Severe Hives Verified 10/27/23 13:42 diphenhydramine Allergy Hives Verified 10/27/23 13:42 [From Benadryl] metoclopramide [From Reglan] Allergy Hives Verified 10/27/23 13:42 Review of Systems <Corwin Portillo MD - Last Filed: 11/03/23 09:02> Review of Systems Narrative: GENERAL: negative chills, positive fatigue, malaise, negative fever, sweats. HEENT: negative sinus pain, ear pain, sore throat RESPIRATORY: negative dyspnea, cough CARDIOVASCULAR: negative chest pain, palpitations GASTROINTESTINAL: negative nausea, vomiting, abdominal pain : negative dysuria, frequency, hematuria MUSCULOSKELETAL: Positive muscle or bony pain SKIN: negative rash, skin lesions NEUROLOGIC: negative weakness, numbness ROS Unobtainable: All systems reviewed & are unremarkable except as noted in HPI and below Patient History <Corwin Portillo MD - Last Filed: 11/03/23 09:02> Medical History Hemorrhoids Social History Smoking Status: Never smoker Smoking Status: Never smoker alcohol intake frequency: holidays/special occasions only Substance Use Type: marijuana Exam <Corwin Portillo MD - Last Filed: 11/03/23 09:02> Narrative Exam Narrative: GENERAL: in no distress, not toxic not dyspneic, however patient is very anxious HEAD: Normocephalic. EYES: Pupils equal round NECK: Trachea midline. CARDIOVASCULAR: Regular rate and rhythm RESPIRATORY: Clear to auscultation. Breath sounds equal bilaterally. No wheezes, rales, or rhonchi. GASTROINTESTINAL: Abdomen soft, non-tender EXTREMITIES: No gross deformities. Examination right forearm. Bite wound is clean and dry intact. No fluctuance. Mild tender to touch but no pain out of portion exam. Forearm is soft. No signs of compartment syndrome. Strong radial pulse brisk cap refills light touch intact to forearm and fingers and thumb. No red streaking/lymphangitis. Wound is on the forearm. No crepitus. NEURO: AOx4. SKIN: Warm and dry PSYCH: Patient is tearful very anxious. Patient is cooperative. Initial Vital Signs Initial Vital Signs: Vital Signs Temperature 99.2 F 10/27/23 13:39 Pulse Rate 93 H 10/27/23 13:39 Respiratory Rate 18 10/27/23 13:39 Blood Pressure 117/72 10/27/23 13:39 Pulse Oximetry 100 10/27/23 13:39 Oxygen Delivery Method Room Air 10/27/23 13:39 <Sj Hung DO - Last Filed: 10/27/23 21:34> Initial Vital Signs Initial Vital Signs: Vital Signs Temperature 99.2 F 10/27/23 13:39 Pulse Rate 93 H 10/27/23 13:39 Respiratory Rate 18 10/27/23 13:39 Blood Pressure 117/72 10/27/23 13:39 Pulse Oximetry 100 10/27/23 13:39 Oxygen Delivery Method Room Air 10/27/23 13:39 Course <Corwin Portillo MD - Last Filed: 11/03/23 09:02> Orders Ordered: Discontinued Medications Hydromorphone HCl (Hydromorphone 1 Mg Inj) 1 mg IV NOW ONE Stop: 10/27/23 15:12 Last Admin: 10/27/23 15:34 Dose: 1 mg Documented By: JEFF Hydromorphone HCl (Hydromorphone 1 Mg Inj) 1 mg IV NOW ONE Stop: 10/27/23 17:49 Last Admin: 10/27/23 18:07 Dose: 1 mg Documented By: ESTELA Sodium Chloride (Normal Saline 0.9%) 1,000 mls @ 1,000 mls/hr IV BOLUS ONE Stop: 10/27/23 15:12 Last Infusion: 10/27/23 15:57 Dose: Infused Documented By: Admin: 10/27/23 14:41 Dose: 1,000 mls/hr Documented By: SCOTT Lorazepam (Lorazepam 2 Mg/Ml Inj) 1 mg IV NOW ONE Stop: 10/27/23 14:27 Last Admin: 10/27/23 14:42 Dose: 1 mg Documented By: SCOTT Morphine Sulfate (Morphine 4 Mg/Ml Inj) 4 mg IV NOW ONE Stop: 10/27/23 14:13 Last Admin: 10/27/23 14:41 Dose: Not Given Documented By: JEFF Ondansetron HCl (Ondansetron 4 Mg/2 Ml Inj) 4 mg IV NOW ONE Stop: 10/27/23 14:13 Last Admin: 10/27/23 14:41 Dose: 4 mg Documented By: SCOTT Ondansetron HCl (Ondansetron 4 Mg Odt Prepack) 1 bottle MISC DIRECTED ONE Stop: 10/27/23 20:06 Vital Signs Vital signs: Vital Signs - 8 hr 10/27/23 13:39 10/27/23 14:01 10/27/23 15:17 Temperature 99.2 F 98.6 F Pulse Rate 93 H 80 87 Respiratory Rate 18 18 16 Blood Pressure 117/72 120/70 110/66 Pulse Oximetry 100 100 100 Oxygen Delivery Method Room Air Room Air Room Air 10/27/23 16:23 10/27/23 17:47 10/27/23 18:32 Temperature 97.9 F Pulse Rate 78 89 80 Respiratory Rate 16 16 18 Blood Pressure 100/76 112/68 Pulse Oximetry 100 96 98 Oxygen Delivery Method Room Air Room Air Room Air 10/27/23 20:00 Temperature 98.3 F Pulse Rate 80 Respiratory Rate 18 Blood Pressure 98/69 Pulse Oximetry 99 Oxygen Delivery Method Room Air <Sj Hung, - Last Filed: 10/27/23 21:34> Orders Ordered: Discontinued Medications Hydromorphone HCl (Hydromorphone 1 Mg Inj) 1 mg IV NOW ONE Stop: 10/27/23 15:12 Last Admin: 10/27/23 15:34 Dose: 1 mg Documented By: JEFF Hydromorphone HCl (Hydromorphone 1 Mg Inj) 1 mg IV NOW ONE Stop: 10/27/23 17:49 Last Admin: 10/27/23 18:07 Dose: 1 mg Documented By: ESTELA Sodium Chloride (Normal Saline 0.9%) 1,000 mls @ 1,000 mls/hr IV BOLUS ONE Stop: 10/27/23 15:12 Last Infusion: 10/27/23 15:57 Dose: Infused Documented By: Admin: 10/27/23 14:41 Dose: 1,000 mls/hr Documented By: SCOTT Lorazepam (Lorazepam 2 Mg/Ml Inj) 1 mg IV NOW ONE Stop: 10/27/23 14:27 Last Admin: 10/27/23 14:42 Dose: 1 mg Documented By: SCOTT Morphine Sulfate (Morphine 4 Mg/Ml Inj) 4 mg IV NOW ONE Stop: 10/27/23 14:13 Last Admin: 10/27/23 14:41 Dose: Not Given Documented By: JEFF Ondansetron HCl (Ondansetron 4 Mg/2 Ml Inj) 4 mg IV NOW ONE Stop: 10/27/23 14:13 Last Admin: 10/27/23 14:41 Dose: 4 mg Documented By: SCOTT Ondansetron HCl (Ondansetron 4 Mg Odt Prepack) 1 bottle MISC DIRECTED ONE Stop: 10/27/23 20:06 Vital Signs Vital signs: Vital Signs - 8 hr 10/27/23 13:39 10/27/23 14:01 10/27/23 15:17 Temperature 99.2 F 98.6 F Pulse Rate 93 H 80 87 Respiratory Rate 18 18 16 Blood Pressure 117/72 120/70 110/66 Pulse Oximetry 100 100 100 Oxygen Delivery Method Room Air Room Air Room Air 10/27/23 16:23 10/27/23 17:47 10/27/23 18:32 Temperature 97.9 F Pulse Rate 78 89 80 Respiratory Rate 16 16 18 Blood Pressure 100/76 112/68 Pulse Oximetry 100 96 98 Oxygen Delivery Method Room Air Room Air Room Air 10/27/23 20:00 Temperature 98.3 F Pulse Rate 80 Respiratory Rate 18 Blood Pressure 98/69 Pulse Oximetry 99 Oxygen Delivery Method Room Air MDM - Wound/Laceration <Corwin Portillo MD - Last Filed: 11/03/23 09:02> Lab Data 10/27/23 14:52 10/27/23 14:52 Labs: Lab Results 10/27/23 10/27/23 Range/Units 14:52 15:15 WBC 12.7 H (4.5-11.0) X10^3/uL RBC 4.51 (4.0-5.2) X10^6/uL Hgb 12.9 (12.0-16.0) g/dL Hct 39.7 (36-46) % MCV 88.0 (80-100) fL MCH 28.7 (26-34) PG MCHC 32.6 (30-36) % RDW 13.2 (11.6-14.8) % Plt Count 319 (150-400) X10^3/uL Neut % (Auto) 84.0 H (50-75) % Lymph % (Auto) 9.0 L (25-40) % Dickinson % (Auto) 6.1 (3-14) % Eos % (Auto) 0.5 L (2-4) % Baso % (Auto) 0.4 (0-2) % Neut # (Auto) 00927 H (5083-9486) /uL Lymph # (Auto) 1100 (0803-4279) /uL Dickinson # (Auto) 800 (0-900) /uL Eos # (Auto) 100 (0-450) /uL Baso # (Auto) 100 (0-100) /uL Sodium 140 (137-145) mmol/L Potassium 3.2 L (3.4-5.1) mmol/L Chloride 105 (98-107) mmol/L Carbon Dioxide 22 (22-32) mmol/L BUN 7 (7-17) mg/dL Creatinine 0.67 (0.52-1.04) mg/dL Estimated GFR > 60 (>60) mL/min BUN/Creatinine Ratio 10.4 (6-22) Glucose 99 (70-100) mg/dL Lactate 1.9 (0.7-2.1) mmol/L Calcium 9.6 (8.4-10.2) mg/dL Total Bilirubin 1.1 (0.2-1.3) mg/dL AST 91 H (14-36) IU/L ALT 69 H (<35) IU/L Alkaline Phosphatase 143 H (38-126) U/L Total Creatine Kinase 200 H (30-135) U/L Total Protein 8.3 H (6.3-8.2) g/dL Albumin 4.8 (3.5-5.0) g/dL Globulin 3.5 (1.7-4.1) g/dL Albumin/Globulin Ratio 1.4 (1.0-2.8) Procalcitonin 0.05 (<0.5) ng/mL Serum , Qual Negative (Negative) Chlamy pneumoniae PCR Not detected (Not Detect) Adenovirus (PCR) Not detected (Not Detect) B.parapertussis DNA PCR Not detected (Not Detecte) Coronavirus OC43 (PCR) Not detected (Not Detect) Coronavirus HKU1 (PCR) Not detected (Not Detect) Coronavirus 229E (PCR) Not detected (Not Detect) SARS-CoV-2 (PCR) Detected H (Not Detecte) Coronavirus NL63 (PCR) Not detected (Not Detect) Human Metapneumovir PCR Not detected (Not Detect) Influenza Type A (PCR) Not detected (Not Detect) Influenza Type B (PCR) Not detected (Not Detect) M. pneumoniae (PCR) Not detected (Not Detect) Parainfluenza 1 (PCR) Not detected (Not Detect) Parainfluenza 2 (PCR) Not detected (Not Detect) Parainfluenza 3 (PCR) Not detected (Not Detect) Parainfluenza 4 (PCR) Not detected (Not Detect) RSV (PCR) Not detected (Not Detect) Entero/Rhino (PCR) Detected H (Not Detect) Imaging Data CT right upper extremity: Radiologist's Impression: [address] [address] [address] Scan Report Signed Patient: Nalini Farias MR#: [id number] : 1990 Acct:[id number] Age/Sex: 32 / F Date of Service: 10/27/23 Loc: Accession Number: [id number] Procedure: CT UE RT w con Ordering Provider: Corwin Portillo MD PROCEDURE: CT UE RT W CON INDICATIONS: Pain/wound infection TECHNIQUE: After the administration of intravenous contrast, 3 mm axial sections acquired of the right forearm , with coronal and sagittal reformats. COMPARISON: None. FINDINGS: Image quality: Excellent. Bones: No fracture or osseous lesion. Soft tissues: No fluid collections. IMPRESSION: Negative examination. Nonemergent MRI or bone scan is recommended to further assess for osteomyelitis. Dictated by: Julianna Cordero M.D. on 10/27/2023 at 16:20 Approved by: Julianna Cordero M.D. on 10/27/2023 at 16:22 [facility] Narrative Medical decision making narrative: Patient denies . She states she is on nurse cycle now. Patient complains of ongoing body aches and right forearm pain. Patient was seen here October 02, 2023 for dog bite to the right forearm. She was placed on Augmentin. She follow up with primary care and was sent to the [facility] where she states she was admitted overnight after incision drainage of her right forearm by General surgery. Patient was seen by Dr. Jamie Sen, general surgery. Patient had incision and drainage of right forearm wound/closure of forearm wound over a vessel loop. She was discharged on Augmentin again. She had follow up appointment with the office October 18 [facility], wound was healing very well. Culture did indicate moderate growth of Staphylococcus mutans. Light growth of pasteurella cannis, scant growth of Neisseria animaloris. On October 18 in office. Stitches and drain were removed. Patient brought in by ambulance. Patient is very very very anxious. He is very tearful. She states a lot has been going on her life in the past few weeks. She states she has had body wide pain for the past 1 week. She tested positive for COVID at home today. Patient would benefit from anxiolytic. After history and exam CBC CMP lactic acid procalcitonin Ativan Zofran normal saline CT right upper extremity respiratory panel MDM CC: Arm pain body aches Complicating co-morbidities: Recent dog bite with incision drainage Data collected from: Patient Medical records reviewed: ER visit here October 02, 2023/dog bite Differential considered: Includes but not limited to sepsis COVID forearm abscess necrotizing fasciitis Exam documented above, pertinent findings include: Mild tenderness to the right forearm Lab Test results independently reviewed as above. Pertinent findings: WBC 12.7 likely from viral infection Sodium 140 potassium 3.2 AST 91 ALT 69 Viral panel positive COVID/rhino virus Negative test Imaging studies independently reviewed: CT right upper extremity no acute finding Consultations: Treatments: Ativan Zofran normal saline Re-evaluations: 4:58 p.m.. Mother at bedside with patient. Updated them results so far. MRI is pending. Symptoms likely due to COVID/rhino virus Discussion: Diagnosis: 6:00 p.m.. Brennick: Sign out to Dr Hung, MRI is ordered to rule out osteomyelitis. Patient's symptoms likely at this time due to rhino virus/COVID <Sj Hung, - Last Filed: 10/27/23 21:34> Lab Data Labs: Lab Results 10/27/23 10/27/23 Range/Units 14:52 15:15 WBC 12.7 H (4.5-11.0) X10^3/uL RBC 4.51 (4.0-5.2) X10^6/uL Hgb 12.9 (12.0-16.0) g/dL Hct 39.7 (36-46) % MCV 88.0 (80-100) fL MCH 28.7 (26-34) PG MCHC 32.6 (30-36) % RDW 13.2 (11.6-14.8) % Plt Count 319 (150-400) X10^3/uL Neut % (Auto) 84.0 H (50-75) % Lymph % (Auto) 9.0 L (25-40) % Dickinson % (Auto) 6.1 (3-14) % Eos % (Auto) 0.5 L (2-4) % Baso % (Auto) 0.4 (0-2) % Neut # (Auto) 46240 H (0883-3920) /uL Lymph # (Auto) 1100 (9412-1810) /uL Dickinson # (Auto) 800 (0-900) /uL Eos # (Auto) 100 (0-450) /uL Baso # (Auto) 100 (0-100) /uL Sodium 140 (137-145) mmol/L Potassium 3.2 L (3.4-5.1) mmol/L Chloride 105 (98-107) mmol/L Carbon Dioxide 22 (22-32) mmol/L BUN 7 (7-17) mg/dL Creatinine 0.67 (0.52-1.04) mg/dL Estimated GFR > 60 (>60) mL/min BUN/Creatinine Ratio 10.4 (6-22) Glucose 99 (70-100) mg/dL Lactate 1.9 (0.7-2.1) mmol/L Calcium 9.6 (8.4-10.2) mg/dL Total Bilirubin 1.1 (0.2-1.3) mg/dL AST 91 H (14-36) IU/L ALT 69 H (<35) IU/L Alkaline Phosphatase 143 H (38-126) U/L Total Creatine Kinase 200 H (30-135) U/L Total Protein 8.3 H (6.3-8.2) g/dL Albumin 4.8 (3.5-5.0) g/dL Globulin 3.5 (1.7-4.1) g/dL Albumin/Globulin Ratio 1.4 (1.0-2.8) Procalcitonin 0.05 (<0.5) ng/mL Serum , Qual Negative (Negative) Chlamy pneumoniae PCR Not detected (Not Detect) Adenovirus (PCR) Not detected (Not Detect) B.parapertussis DNA PCR Not detected (Not Detecte) Coronavirus OC43 (PCR) Not detected (Not Detect) Coronavirus HKU1 (PCR) Not detected (Not Detect) Coronavirus 229E (PCR) Not detected (Not Detect) SARS-CoV-2 (PCR) Detected H (Not Detecte) Coronavirus NL63 (PCR) Not detected (Not Detect) Human Metapneumovir PCR Not detected (Not Detect) Influenza Type A (PCR) Not detected (Not Detect) Influenza Type B (PCR) Not detected (Not Detect) M. pneumoniae (PCR) Not detected (Not Detect) Parainfluenza 1 (PCR) Not detected (Not Detect) Parainfluenza 2 (PCR) Not detected (Not Detect) Parainfluenza 3 (PCR) Not detected (Not Detect) Parainfluenza 4 (PCR) Not detected (Not Detect) RSV (PCR) Not detected (Not Detect) Entero/Rhino (PCR) Detected H (Not Detect) Imaging Data Forearm MRI: Radiologist's Impression: PROCEDURE: MR FOREARM RT WO/W CON INDICATIONS: Right arm infection TECHNIQUE: Noncontrast coronal T1 spin echo and STIR, sagittal T1 spin echo with fat saturation and STIR, axial T1 spin echo and T2 fast spin echo with fat saturation. After the administration of contrast, axial/sagittal/coronal T1 spin echo with fat saturation through the forearm . COMPARISON: None. FINDINGS: Image quality: Excellent. Bones: The visualized bone marrow demonstrates normal signal on all sequences. The overlying cortex appears intact. No abnormal intraosseous enhancement. Soft tissues: No soft tissue masses are visualized. The scanned muscles demonstrate normal overall bulk and internal signal. Subcutaneous edema within the medial proximal forearm, without drainable collection. No abnormal soft tissue enhancement. IMPRESSION: Subcutaneous edema within the medial forearm, without drainable abscess or osteomyelitis. MDM Narrative Medical decision making narrative: Patient denies . She states she is on nurse cycle now. Patient complains of ongoing body aches and right forearm pain. Patient was seen here October 02, 2023 for dog bite to the right forearm. She was placed on Augmentin. She follow up with primary care and was sent to the [facility] where she states she was admitted overnight after incision drainage of her right forearm by General surgery. Patient was seen by Dr. Jamie Sen, general surgery. Patient had incision and drainage of right forearm wound/closure of forearm wound over a vessel loop. She was discharged on Augmentin again. She had follow up appointment with the office October 18 [facility], wound was healing very well. Culture did indicate moderate growth of Staphylococcus mutans. Light growth of pasteurella cannis, scant growth of Neisseria animaloris. On October 18 in office. Stitches and drain were removed. Patient brought in by ambulance. Patient is very very very anxious. He is very tearful. She states a lot has been going on her life in the past few weeks. She states she has had body wide pain for the past 1 week. She tested positive for COVID at home today. Patient would benefit from anxiolytic. After history and exam CBC CMP lactic acid procalcitonin Ativan Zofran normal saline CT right upper extremity respiratory panel MDM CC: Arm pain body aches Complicating co-morbidities: Recent dog bite with incision drainage Data collected from: Patient Medical records reviewed: ER visit here October 02, 2023/dog bite Differential considered: Includes but not limited to sepsis COVID forearm abscess necrotizing fasciitis Exam documented above, pertinent findings include: Mild tenderness to the right forearm Lab Test results independently reviewed as above. Pertinent findings: WBC 12.7 likely from viral infection Sodium 140 potassium 3.2 AST 91 ALT 69 Viral panel positive COVID/rhino virus Negative test Imaging studies independently reviewed: CT right upper extremity no acute finding Consultations: Treatments: Ativan Zofran normal saline Re-evaluations: 4:58 p.m.. Mother at bedside with patient. Updated them results so far. MRI is pending. Symptoms likely due to COVID/rhino virus Discussion: Diagnosis: 6:00 p.m.. Fabianick: Sign out to Dr Hung, MRI is ordered to rule out osteomyelitis. Patient's symptoms likely at this time due to rhino virus/COVID Dr Hung: Received turned over. Review patient's history and physical exam. MRI does not show any signs of a deep abscess. She is COVID positive and also RSV positive which certainly explains the symptoms that she presents with today. There was no indication to restart any antibiotics for her forearm. No indication for antibiotics and general. Did discuss this with her. She was not hypoxic. No indication for admission to the hospital. She has an allergy to Tylenol so she can take ibuprofen as needed for fevers or body aches. She was given return precautions. Discharge Plan Departure Patient Disposition: Home Clinical Impression: COVID-19, Rhinovirus infection Instructions: COVID-19 Activity Restrictions/Additional Instructions: You can take ibuprofen for any fevers. Continue to take all of your medications as directed. Follow all current CDC guidelines with regard to quarantine and COVID-19. These can be found on the CDC website. Return to the emergency department for new symptoms. Prescriptions: No Action ondansetron 4 mg tablet,disintegrating 4 mg PO TID-QID PRN (Reason: nausea and vomiting) Qty: 10 0RF ondansetron 4 mg tablet,disintegrating 4 mg PO TID-QID PRN (Reason: nausea and vomiting) Qty: 10 0RF Referrals: Renetta Mckeon ARNP [Primary Care Provider] - Stand Alone Forms: Patient Portal/API
[2023-10-27] MEDS: ONDANSETRON 4 MG/2 ML INJ IV (14:41)
[2023-10-27] MEDS: SODIUM CHLORIDE 0.9% 1,000 ML 1000 ML IV (14:41)
[2023-10-27] MEDS: LORazepam 2 MG/ML INJ 1 MG IV (14:42)
[2023-10-27 15:09] LABS: Add Manual Diff / Slide Review NO; Basophils Absolute Auto 100 /uL (0-100); Basophils Percent Auto 0.4 % (0-2); Eosinophils Absolute Auto 100 /uL (0-450); Eosinophils Percent Auto 0.5 % (2-4); Hematocrit 39.7 % (36-46); Hemoglobin 12.9 g/dL (12.0-16.0); Lymphocytes Absolute Auto 1100 /uL (1100-4500); Mean Corpuscular HGB Conc 32.6 % (30-36); Mean Corpuscular Hemoglobin 28.7 PG (26-34); Monocytes Absolute Auto 800 /uL (0-900); Monocytes Percent Auto 6.1 % (3-14); Neutrophils Absolute Auto 10700 /uL (1500-7000); Platelet Count 319 X10^3/uL (150-400); Red Blood Cell Count 4.51 X10^6/uL (4.0-5.2); Red Cell Distribution Width 13.2 % (11.6-14.8); White Blood Cell Count 12.7 X10^3/uL (4.5-11.0)
[2023-10-27 15:26] LABS: Alanine Aminotransferase 69 IU/L (<35); Albumin 4.8 g/dL (3.5-5.0); Albumin Globulin Ratio 1.4 (1.0-2.8); Alkaline Phosphatase 143 U/L (38-126); Aspartate Aminotransferase 91 IU/L (14-36); BUN Creatinine Ratio 10.4 (6-22); Bilirubin Total 1.1 mg/dL (0.2-1.3); Blood Urea Nitrogen 7 mg/dL (7-17); Calcium 9.6 mg/dL (8.4-10.2); Carbon Dioxide 22 mmol/L (22-32); Chloride 105 mmol/L (98-107); Creatine Kinase 200 U/L (30-135); Estimated Glomerular Filt Rate > 60 mL/min (>60); Globulin 3.5 g/dL (1.7-4.1); Glucose 99 mg/dL (70-100); HEMOLYSIS < 15 (0-50); Potassium 3.2 mmol/L (3.4-5.1); Pregnancy Test Serum,Qual Negative (Negative); Sodium 140 mmol/L (137-145); Total Protein 8.3 g/dL (6.3-8.2)
[2023-10-27 15:28] LABS: Lactate (Lactic Acid) 1.9 mmol/L (0.7-2.1)
[2023-10-27] MEDS: HYDROMORPHONE 1 MG INJ IV ×2 (15:34→18:07)
[2023-10-27 15:43] LABS: Procalcitonin 0.05 ng/mL (<0.5)
[2023-10-27 16:06] LABS: Adenovirus Not Detected (Not Detect); B. parapertussis Not Detected (Not Detecte); Bordetella pertussis Not Detected (Not Detect); Chlamydophila pneumoniae Not Detected (Not Detect); Coronavirus 229E Not Detected (Not Detect); Coronavirus HKU1 Not Detected (Not Detect); Coronavirus NL 63 Not Detected (Not Detect); Coronavirus OC43 Not Detected (Not Detect); Human Metapneumovirus Not Detected (Not Detect); Human Rhinovirus/Enterovirus Detected (Not Detect); Influenza A Not Detected (Not Detect); Influenza B Not Detected (Not Detect); Mycoplasma pneumoniae Not Detected (Not Detect); Parainfluenza Virus 1 Not Detected (Not Detect); Parainfluenza Virus 2 Not Detected (Not Detect); Parainfluenza Virus 3 Not Detected (Not Detect); Parainfluenza Virus 4 Not Detected (Not Detect); Respiratory Syncytial Virus Not Detected (Not Detect); SARS- CoV-2 Detected (Not Detecte)
--- NOTE | 2023-10-27 16:26 | DI.MRI.S_ITS ---
PROCEDURE: MR FOREARM RT WO/W CON INDICATIONS: Right arm infection TECHNIQUE: Noncontrast coronal T1 spin echo and STIR, sagittal T1 spin echo with fat saturation and STIR, axial T1 spin echo and T2 fast spin echo with fat saturation. After the administration of contrast, axial/sagittal/coronal T1 spin echo with fat saturation through the forearm . COMPARISON: None. FINDINGS: Image quality: Excellent. Bones: The visualized bone marrow demonstrates normal signal on all sequences. The overlying cortex appears intact. No abnormal intraosseous enhancement. Soft tissues: No soft tissue masses are visualized. The scanned muscles demonstrate normal overall bulk and internal signal. Subcutaneous edema within the medial proximal forearm, without drainable collection. No abnormal soft tissue enhancement. IMPRESSION: Subcutaneous edema within the medial forearm, without drainable abscess or osteomyelitis. Dictated by: Phan Zazueta M.D. on 10/27/2023 at 19:35 Approved by: Phan Zazueta M.D. on 10/27/2023 at 19:37
== END 2023-10-27 20:20 | disposition home or self-care (01) ==
PROVIDERS: Emergency Medicine; Emergency Provider Emergency Medicine; PCP Nurse Practitioner Family
DX: U07.1 COVID-19 (principal); B34.8 Other viral infections of unspecified site
CPT/HCPCS: 73201; 73220; 80053; 82550; 83605; 84145; 84703; 85025; 87633; 96361; 96374; 96375; 96376; 99284; A9579; J1170; J2060; J2405; Q9967

== ENCOUNTER 2024-02-24 14:30 | Outpatient (RCR) | payer OTHER, MEDICAID, SELFPAY ==
--- NOTE | 2024-02-03 16:45 | PT.OIE ---
Current Diagnoses Other cervical disc displacement, unspecified cervical region (02/03/24) Other lack of coordination (02/03/24) Weakness (02/03/24) Strain of muscle, fascia and tendon at neck level, initial encounter (02/03/24) Past Medical History (Last Reviewed 10/27/23 @ 14:28 by Corwin Portillo MD) Hemorrhoids Visit Care Team Role Provider Type ISABEL [place] Family Provider Non-Staff Primary Care Provider Specialty: Medical Address: [address] [place] [address], [place], [address] Email: Corwin Dobson MD Attending Provider Physician Referring Provider Specialty: Orthopedic Surgery Address: [address] [place] [address], [place], [address] Email: Physical Therapy Initial Evaluation PT-OP-A Visit Information Start: 02/03/24 12:58 Freq: Status: Active Protocol: Document 02/03/24 12:59 NM (Rec: 02/03/24 16:43 NM [id number]) Out-Patient Physical Therapy Visit Information Visit Information Visit Type Initial Evaluation Visit Note 24 visits MAX Visit Start Time 13:00 Visit Stop Time 13:45 Visit Number 1 Evaluation Information Evaluation Date 02/03/24 Precautions Precautions Hx of seizures, falls, concussion, dizziness PT-OP-B Current Condition Start: 02/03/24 12:58 Freq: Status: Active Protocol: Document 02/03/24 12:59 NM (Rec: 02/03/24 16:43 NM [id number]) Current Condition History of Current Condition Onset Date 6 years Current Complaints pain, N/T, weakness History of Current Condition Pt presents with headaches, neck pain, primarily L sided. 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 She has tried chiropractic, which increases her pain; stopped after 1.5 years, currently not using for pain reduction. She was into weight lifting 3x/day previously and hiking; currently unable to tolerate that level of exertion. 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 She had a son in 2020. She reports during that her L side would go numb and tingle. She had a thyroid cyst removal, which led to a recurrence in numbness and tingling. She is L handed. She reports that she had an MRI indicating several findings, about 1.5 ago, but she does not remember the results. 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 She also had an Xray with Dr. Dobson recently, but she does not know the results. Pt also reports L shoulder blade and mid back pain, in addition to low back pain, L sided leg pain with episodes of leg numbness. She reports that she is dropping stuff with increasing frequency, stumbling (also reports leg/back pain for several years). Pt also concerned about L sided facial twitching. She is planning on having PT prior to surgery, Dr. Dobson, but is set on having surgery after trying PT for a few visits. Current Functional Impairments (Reported) Functional Limitations- ADL's unable to lift son who is 30#; washing dishes/gripping Functional Limitations- Mobility/Gait running, walking > lighthead/ dizziness with exertion ( previous fainting/passing out with periods- less w/ IUD) Functional Limitations- Work/School she was in school until last year (april 2023) PT-OP-C Subjective Start: 02/03/24 12:58 Freq: Status: Active Protocol: Document 02/03/24 12:59 NM (Rec: 02/03/24 16:43 NM [id number]) OP-PT Subjective Patient Comments Patient Comments see hx above for pt report Patient Questionnaires Neck Disability Index NDI Score 32/50 Oswestry Low Back Index Oswestry Score 27/50 Quick Dash- Upper Extremity Quick Dash UE Score 45 or 77.3% OP-PT Pain Assessment Location neck Pain Location Details L sided > R side, midline Intensity 7 Scale Used Numeric (0 - 10) Description Cramping,Pressure,Sharp Description- Other worst Frequency Frequent Radiating Location to 3-5 fingers (dorsal); midback/L shoulder Pain Aggravating Factors Position,Activity,Exercise, Coughing Other Pain Aggravating Factors flexion, looking up Pain Alleviating Factors Lying Supine PT-OP-F Manual Assessment Start: 02/03/24 12:58 Freq: Status: Active Protocol: Document 02/03/24 12:59 NM (Rec: 02/03/24 16:43 NM [id number]) Manual Assessments Soft Tissue Assessment Soft Tissue Mobility Assessment Increased tenderness and tightness of periscapular, cervical paraspinals, suboccipitals, SCM, scalenes. Left side significantly more restricted than R side. Joint Mobility Assessment Joint Mobility Assessment Tenderness and increased mobility with P-A springing of cervical spine, decreased mobility with lateral glides. PT-OP-G Mobility & Gait Start: 02/03/24 12:58 Freq: Status: Active Protocol: Document 02/03/24 12:59 NM (Rec: 02/03/24 16:43 NM [id number]) OP Gait Assessment Gait Gait Assistance Required: Independent Distance (Feet) 150 Gait Deviations General Gait Pattern Antalgic,Flexed Trunk Factors Limiting Gait Function Factors Limiting Gait Function Decreased Activity Tolerance, Decreased Sensation,Decreased Strength,Limited Range of Motion,Pain,Poor Balance PT-OP-H Neuro Start: 02/03/24 12:58 Freq: Status: Active Protocol: Document 02/03/24 12:59 NM (Rec: 02/03/24 16:43 NM [id number]) Sensation Evaluation Gross Sensation Gross Sensation Left UE Impaired,Left LE Impaired Sensation Description Paresthesia,Hyperesthesia, Numbness,Tingling Dermatome Impairments C7,C8,T1,T2 Comments Summary Comments Pt reports numbness of LLE but not formally tested due to time. LUE less sensitive compared to RUE at hand, more sensitive at brachium than RUE PT-OP-J Posture/Palpation/Skin Start: 02/03/24 12:58 Freq: Status: Active Protocol: Document 02/03/24 12:59 NM (Rec: 02/03/24 16:43 NM [id number]) Posture Evaluation Position Standing Head/C-Spine Posture Forward Head Shoulder Posture (L) Rounded,(R) Rounded,(L) Forward,(R) Forward Scapula Posture (L) Protracted,(L) Elevated Arm Posture (L) Internally Rotated,(R) Internally Rotated Pelvis Posture Anteriorly Tilted Weight Distribution Weight Shifted Right Palpation Assessment Location L shoulder Palpation Findings Soft Tissue Tightness, Tenderness Palpation Details Pain along rhomboids, scapular borders cervical spine Palpation Location L side more limited and painful than R side Palpation Findings Soft Tissue Tightness, Tenderness Palpation Details Tenderness along suboccipitals , paraspinals, SCM, upper trapezius, levator scapula PT-OP-K Range of Motion Start: 02/03/24 12:58 Freq: Status: Active Protocol: Document 02/03/24 12:59 NM (Rec: 02/03/24 16:43 NM [id number]) Cervical Spine Range of Motion Cervical Spine Active Degrees Flexion 35 Extension 30 Rotation Left 55 Rotation Right 65 Lateral Flexion Left 35 Lateral Flexion Right 40 ROM Limitations Soft Tissue Tightness,Pain Comments Extension, L lateral flexion, L rotation Shoulder Goniometric Range of Motion Shoulder Right Flexion 160 Abduction 170 Left Flexion 160 Abduction 140 Comments pinching with abd PT-OP-L Special Tests Start: 02/03/24 16:43 Freq: Status: Active Protocol: Document 02/03/24 12:59 NM (Rec: 02/03/24 16:44 NM [id number]) Special Tests Cervical Spine Special Tests Traction Test Results + Comments relieves symptoms Foraminal Compression Test Results + Comments L>R Upper Limb Tension Test Test Results + Comments Radial> median, ulnar Transverse Ligament Test Results - Vertebral Artery Test Results - Comments reports increased twitch in face but no other symptoms observed Alar Ligament Test Results - PT-OP-M Strength Start: 02/03/24 12:58 Freq: Status: Active Protocol: Document 02/03/24 12:59 NM (Rec: 02/03/24 16:43 NM [id number]) Cervical Spine Strength Cervical Spine Manual Muscle Testing Flexion (C1-2) 4- Good- Extension 3+ Fair+ Rotation Left 2+ Poor+ Rotation Right 3+ Fair+ Lateral Flexion Left (C3) 2+ Poor+ Lateral Flexion Right (C3) 3+ Fair+ Shoulder Strength Shoulder Manual Muscle Testing Right Flexion 4- Good- Abduction (C5) 4- Good- External Rotation 4- Good- Internal Rotation 4- Good- Left Flexion 3+ Fair+ Abduction (C5) 3+ Fair+ External Rotation 3+ Fair+ Internal Rotation 3+ Fair+ Elbow/Forearm Strength Elbow and Forearm Manual Muscle Testing Right Flexion (C6) 4- Good- Extension (C7) 4- Good- Left Flexion (C6) 3+ Fair+ Extension (C7) 4- Good- PT-OP-Q Treatments Start: 02/03/24 12:58 Freq: Status: Active Protocol: Document 02/03/24 12:59 NM (Rec: 02/03/24 16:43 NM [id number]) Therapeutic Activity Therapeutic Activity Disc Hydrostatic Management Reps/Minutes 8 minutes Comments Small towel roll under base of neck to offload discs and promote muscle relaxation. Legs elevated on bolster. Cued to elongate neck and trunk muscles, relax into table. Reports reduction in muscle tightness, symptoms. Paried with diaphragmatic breathing- Added to HEP Diaphragmatic Breathing Comments Self tactile cues with one hand on abdomen and other hand on chest. Verbal cues to keep hand on chest still, smell the roses and gently blow out the candles. Performed concurrently with disc hydrostatic management for pain reduction- added to HEP Self-Care/Home Management Treatment Education Patient Education Pain Management Other Education Brief education on posture/ activity modification in addition to diaphragmatic breathing for pain management. Educated on use of heat for muscle relaxation, per pt preference PT-OP-T Assessment and Plan Start: 02/03/24 12:58 Freq: Status: Active Protocol: Document 02/03/24 12:59 NM (Rec: 02/03/24 16:43 NM [id number]) Physical Therapy Assessment Rehab Potential Rehabilitation Potential Fair Evaluation Complexity Number of Personal Factors/Comorbidities 3 or More Number of Body Systems Impaired 3 Clinical Presentation at Evaluation Stable Impairments Impairments Activity Tolerance,Balance, Functional Activities, Functional Mobility,Gait,Pain, Posture,ROM,Sensation,Soft Tissue Mobility,Strength,Tone, Vestibular,Visual Motor Goals Four Impairment pain management Impairment requires education regarding pain management Short Term Goal (STG) Pt will be able to verbalize at least 3 pain management strategies in order to improve symptom management and activity tolerance STG Duration 3 weeks [facility] Goal (LTG) Pt will be able to demonstrate at least 3 pain management strategies in order to improve symptom management and activity tolerance LTG Duration 6 weeks Three Impairment ROM Impairment cervical spine rotation limited- 65 deg R Short Term Goal (STG) Pt will improve R cervical spine rotation to at least 75 deg in order to improve visual scanning STG Duration 3 weeks Long-Term Goal (LTG) Pt will improve R cervical spine rotation to at least 80 deg in order to improve visual scanning LTG Duration 6 weeks Two Impairment ROM Impairment Cervical spine rotation limited- L 55 deg Short Term Goal (STG) Pt will increase R cervical spine rotation to at least 65 deg in order to improve visual scanning STG Duration 3 weeks [facility] Goal (LTG) Pt will increase R cervical spine rotation to at least 70 deg in order to improve visual scanning LTG Duration 6 weeks One Impairment HEP Impairment not performing HEP Short Term Goal (STG) Pt will report compliance with HEP at least 3x/wk in order to maximize progression with PT STG Duration 3 weeks [facility] Goal (LTG) Pt will report compliance with HEP at least 3x/wk in order to promote independence with PT after discharge LTG Duration 6 weeks Assessment Summary Assessment Pt is a 33 y.o. female presenting with chronic pain of her cervical spine, L shoulder, and L periscapular muscles with radiation into her L hand. Pt has intermittent numbness and tingling that is increasing in frequency. Pt has had previous imaging performed but results are unknown. She is currently considering surgery but must try conservative care first; thus, pt wanting to limit visits in order to maximize post-op benefits. Pt has limitations in global cervical spine mobility and L shoulder mobility, including pain with all motions. Pt has difficulty with stabilizing her cervical paraspinals against resistance due to pain and weakness. She has decreased UE strength bilaterally, but her LUE is more impaired than her RUE. Pt has numbness and tingling that occurs into the last 3 digits of her L hand. Pt's symptoms are worse with compression and improved with distraction. PT educated pt on exam findings and discussed pt's goals for PT. Initiated HEP with diaphragmatic breathing and disc hydrostatic management for symptom reduction. Pt has good tolerance and reports pain reduction with activities. Pt would benefit from skilled PT for body mechanics and postural education in addition to gentle mobility in order to improve symptom management. Physical Therapy Plan Frequency and Duration Frequency of Treatment 1-2x/wk Duration of treatment (weeks) 6 Plan of Care Start Date 02/03/24 Plan of Care End Date 03/16/24 Therapeutic Interventions Therapeutic Interventions Balance Training,Canalithic Repositioning,Coordination Training,Gait Training,Home Exercise Program,Joint Mobilizations,Manual Therapy, Neuromuscular Re-education, Orthotic/Prosthetic Management ,Patient/Caregiver Education, Self-Care/Home Management, Sensory Integration, Therapeutic Activities, Therapeutic Exercises, Vestibular Rehabilitation Modalities Cold Pack/Ice Massage,Electric Stimulation,Hot Packs, Traction- Mechanical, Ultrasound Next Visit Focus/Plan Next Note Type Treatment Note Next Visit Plan Education on sleep positioning , posture, stretches Trial: nerve glides with wall posture, gentle STM to neck and periscapulars, suboccipital release, scapular and periscapular strengthening
--- NOTE | 2024-02-03 16:46 | PT.OPPOC ---
Physical, Occupational & Speech Therapy At [facility] Current Diagnoses Other cervical disc displacement, unspecified cervical region (02/03/24) Other lack of coordination (02/03/24) Weakness (02/03/24) Strain of muscle, fascia and tendon at neck level, initial encounter (02/03/24) Visit Care Team Role Provider Type ISABEL [place] Family Provider Non-Staff Primary Care Provider Specialty: Medical Address: [address] [place] [address], [place], [address] Email: Corwin Dobson MD Attending Provider Physician Referring Provider Specialty: Orthopedic Surgery Address: [address] [place] [address], [place], [address] Email: Plan Of Care PT-OP-T Assessment and Plan Start: 02/03/24 12:58 Freq: Status: Active Protocol: Document 02/03/24 12:59 NM (Rec: 02/03/24 16:43 NM [id number]) Physical Therapy Assessment Rehab Potential Rehabilitation Potential Fair Evaluation Complexity Number of Personal Factors/Comorbidities 3 or More Number of Body Systems Impaired 3 Clinical Presentation at Evaluation Stable Impairments Impairments Activity Tolerance,Balance, Functional Activities, Functional Mobility,Gait,Pain, Posture,ROM,Sensation,Soft Tissue Mobility,Strength,Tone, Vestibular,Visual Motor Goals Four Impairment pain management Impairment requires education regarding pain management Short Term Goal (STG) Pt will be able to verbalize at least 3 pain management strategies in order to improve symptom management and activity tolerance STG Duration 3 weeks [facility] Goal (LTG) Pt will be able to demonstrate at least 3 pain management strategies in order to improve symptom management and activity tolerance LTG Duration 6 weeks Three Impairment ROM Impairment cervical spine rotation limited- 65 deg R Short Term Goal (STG) Pt will improve R cervical spine rotation to at least 75 deg in order to improve visual scanning STG Duration 3 weeks [facility] Goal (LTG) Pt will improve R cervical spine rotation to at least 80 deg in order to improve visual scanning LTG Duration 6 weeks Two Impairment ROM Impairment Cervical spine rotation limited- L 55 deg Short Term Goal (STG) Pt will increase R cervical spine rotation to at least 65 deg in order to improve visual scanning STG Duration 3 weeks [facility] Goal (LTG) Pt will increase R cervical spine rotation to at least 70 deg in order to improve visual scanning LTG Duration 6 weeks One Impairment HEP Impairment not performing HEP Short Term Goal (STG) Pt will report compliance with HEP at least 3x/wk in order to maximize progression with PT STG Duration 3 weeks [facility] Goal (LTG) Pt will report compliance with HEP at least 3x/wk in order to promote independence with PT after discharge LTG Duration 6 weeks Assessment Summary Assessment Pt is a 33 y.o. female presenting with chronic pain of her cervical spine, L shoulder, and L periscapular muscles with radiation into her L hand. Pt has intermittent numbness and tingling that is increasing in frequency. Pt has had previous imaging performed but results are unknown. She is currently considering surgery but must try conservative care first; thus, pt wanting to limit visits in order to maximize post-op benefits. Pt has limitations in global cervical spine mobility and L shoulder mobility, including pain with all motions. Pt has difficulty with stabilizing her cervical paraspinals against resistance due to pain and weakness. She has decreased UE strength bilaterally, but her LUE is more impaired than her RUE. Pt has numbness and tingling that occurs into the last 3 digits of her L hand. Pt's symptoms are worse with compression and improved with distraction. PT educated pt on exam findings and discussed pt's goals for PT. Initiated HEP with diaphragmatic breathing and disc hydrostatic management for symptom reduction. Pt has good tolerance and reports pain reduction with activities. Pt would benefit from skilled PT for body mechanics and postural education in addition to gentle mobility in order to improve symptom management. Physical Therapy Plan Frequency and Duration Frequency of Treatment 1-2x/wk Duration of treatment (weeks) 6 Plan of Care Start Date 02/03/24 Plan of Care End Date 03/16/24 Therapeutic Interventions Therapeutic Interventions Balance Training,Canalithic Repositioning,Coordination Training,Gait Training,Home Exercise Program,Joint Mobilizations,Manual Therapy, Neuromuscular Re-education, Orthotic/Prosthetic Management ,Patient/Caregiver Education, Self-Care/Home Management, Sensory Integration, Therapeutic Activities, Therapeutic Exercises, Vestibular Rehabilitation Modalities Cold Pack/Ice Massage,Electric Stimulation,Hot Packs, Traction- Mechanical, Ultrasound Next Visit Focus/Plan Next Note Type Treatment Note Next Visit Plan Education on sleep positioning , posture, stretches Trial: nerve glides with wall posture, gentle STM to neck and periscapulars, suboccipital release, scapular and periscapular strengthening Plan of Care Dates Plan of Care Start Date 02/03/24 Plan of Care End Date 03/16/24 Electronically Signed by: Melani David, PT 02/07/24 [id number] If you are in agreement with this Plan of Care, please return a signed and dated copy. I have reviewed this Plan of Care and certify that the skilled therapy services above are required to meet the patient?s needs. Physician Signature Date Printed Name and Credentials Clinical Instructor Signature Printed Name and Credentials
--- NOTE | 2024-02-08 15:37 | PT.OTN ---
Current Diagnoses Other cervical disc displacement, unspecified cervical region (02/08/24) Other lack of coordination (02/08/24) Weakness (02/08/24) Strain of muscle, fascia and tendon at neck level, initial encounter (02/08/24) Physical Therapy Treatment Note PT-OP-A Visit Information Start: 02/03/24 12:58 Freq: Status: Active Protocol: Document 02/08/24 14:33 NM (Rec: 02/08/24 15:37 NM [id number]) Out-Patient Physical Therapy Visit Information Visit Information Visit Type Treatment Note Visit Note 24 visits MAX Visit Start Time 14:33 Visit Stop Time 15:15 Visit Number 2 Evaluation Information Evaluation Date 02/03/24 Precautions Precautions Hx of seizures, falls, concussion, dizziness PT-OP-B Current Condition Start: 02/03/24 12:58 Freq: Status: Active Protocol: Document 02/03/24 12:59 NM (Rec: 02/03/24 16:43 NM [id number]) Current Condition History of Current Condition Onset Date 6 years Current Complaints pain, N/T, weakness History of Current Condition Pt presents with headaches, neck pain, primarily L sided. 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 She has tried chiropractic, which increases her pain; stopped after 1.5 years, currently not using for pain reduction. She was into weight lifting 3x/day previously and hiking; currently unable to tolerate that level of exertion. 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 She had a son in 2020. She reports during that her L side would go numb and tingle. She had a thyroid cyst removal, which led to a recurrence in numbness and tingling. She is L handed. She reports that she had an MRI indicating several findings, about 1.5 ago, but she does not remember the results. 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 She also had an Xray with Dr. Dobson recently, but she does not know the results. Pt also reports L shoulder blade and mid back pain, in addition to low back pain, L sided leg pain with episodes of leg numbness. She reports that she is dropping stuff with increasing frequency, stumbling (also reports leg/back pain for several years). Pt also concerned about L sided facial twitching. She is planning on having PT prior to surgery, Dr. Dobson, but is set on having surgery after trying PT for a few visits. Current Functional Impairments (Reported) Functional Limitations- ADL's unable to lift son who is 30#; washing dishes/gripping Functional Limitations- Mobility/Gait running, walking > lighthead/ dizziness with exertion ( previous fainting/passing out with periods- less w/ IUD) Functional Limitations- Work/School she was in school until last year (april 2023) PT-OP-C Subjective Start: 02/03/24 12:58 Freq: Status: Active Protocol: Document 02/08/24 14:33 NM (Rec: 02/08/24 15:37 NM [id number]) OP-PT Subjective Patient Comments Patient Comments Pt reports that she laid on her L arm over the weekend when she had a migraine, when she moved her arm it was excruciating. She reports that she tried the towel roll under the neck and breathing, which helped a lot. PT-OP-F Manual Assessment Start: 02/03/24 12:58 Freq: Status: Active Protocol: Document 02/03/24 12:59 NM (Rec: 02/03/24 16:43 NM [id number]) Manual Assessments Soft Tissue Assessment Soft Tissue Mobility Assessment Increased tenderness and tightness of periscapular, cervical paraspinals, suboccipitals, SCM, scalenes. Left side significantly more restricted than R side. Joint Mobility Assessment Joint Mobility Assessment Tenderness and increased mobility with P-A springing of cervical spine, decreased mobility with lateral glides. PT-OP-G Mobility & Gait Start: 02/03/24 12:58 Freq: Status: Active Protocol: Document 02/03/24 12:59 NM (Rec: 02/03/24 16:43 NM [id number]) OP Gait Assessment Gait Gait Assistance Required: Independent Distance (Feet) 150 Gait Deviations General Gait Pattern Antalgic,Flexed Trunk Factors Limiting Gait Function Factors Limiting Gait Function Decreased Activity Tolerance, Decreased Sensation,Decreased Strength,Limited Range of Motion,Pain,Poor Balance PT-OP-H Neuro Start: 02/03/24 12:58 Freq: Status: Active Protocol: Document 02/03/24 12:59 NM (Rec: 02/03/24 16:43 NM [id number]) Sensation Evaluation Gross Sensation Gross Sensation Left UE Impaired,Left LE Impaired Sensation Description Paresthesia,Hyperesthesia, Numbness,Tingling Dermatome Impairments C7,C8,T1,T2 Comments Summary Comments Pt reports numbness of LLE but not formally tested due to time. LUE less sensitive compared to RUE at hand, more sensitive at brachium than RUE PT-OP-J Posture/Palpation/Skin Start: 02/03/24 12:58 Freq: Status: Active Protocol: Document 02/03/24 12:59 NM (Rec: 02/03/24 16:43 NM [id number]) Posture Evaluation Position Standing Head/C-Spine Posture Forward Head Shoulder Posture (L) Rounded,(R) Rounded,(L) Forward,(R) Forward Scapula Posture (L) Protracted,(L) Elevated Arm Posture (L) Internally Rotated,(R) Internally Rotated Pelvis Posture Anteriorly Tilted Weight Distribution Weight Shifted Right Palpation Assessment Location L shoulder Palpation Findings Soft Tissue Tightness, Tenderness Palpation Details Pain along rhomboids, scapular borders cervical spine Palpation Location L side more limited and painful than R side Palpation Findings Soft Tissue Tightness, Tenderness Palpation Details Tenderness along suboccipitals , paraspinals, SCM, upper trapezius, levator scapula PT-OP-K Range of Motion Start: 02/03/24 12:58 Freq: Status: Active Protocol: Document 02/03/24 12:59 NM (Rec: 02/03/24 16:43 NM [id number]) Cervical Spine Range of Motion Cervical Spine Active Degrees Flexion 35 Extension 30 Rotation Left 55 Rotation Right 65 Lateral Flexion Left 35 Lateral Flexion Right 40 ROM Limitations Soft Tissue Tightness,Pain Comments Extension, L lateral flexion, L rotation Shoulder Goniometric Range of Motion Shoulder Right Flexion 160 Abduction 170 Left Flexion 160 Abduction 140 Comments pinching with abd PT-OP-L Special Tests Start: 02/03/24 16:43 Freq: Status: Active Protocol: Document 02/03/24 12:59 NM (Rec: 02/03/24 16:44 NM [id number]) Special Tests Cervical Spine Special Tests Traction Test Results + Comments relieves symptoms Foraminal Compression Test Results + Comments L>R Upper Limb Tension Test Test Results + Comments Radial> median, ulnar Transverse Ligament Test Results - Vertebral Artery Test Results - Comments reports increased twitch in face but no other symptoms observed Alar Ligament Test Results - PT-OP-M Strength Start: 02/03/24 12:58 Freq: Status: Active Protocol: Document 02/03/24 12:59 NM (Rec: 02/03/24 16:43 NM [id number]) Cervical Spine Strength Cervical Spine Manual Muscle Testing Flexion (C1-2) 4- Good- Extension 3+ Fair+ Rotation Left 2+ Poor+ Rotation Right 3+ Fair+ Lateral Flexion Left (C3) 2+ Poor+ Lateral Flexion Right (C3) 3+ Fair+ Shoulder Strength Shoulder Manual Muscle Testing Right Flexion 4- Good- Abduction (C5) 4- Good- External Rotation 4- Good- Internal Rotation 4- Good- Left Flexion 3+ Fair+ Abduction (C5) 3+ Fair+ External Rotation 3+ Fair+ Internal Rotation 3+ Fair+ Elbow/Forearm Strength Elbow and Forearm Manual Muscle Testing Right Flexion (C6) 4- Good- Extension (C7) 4- Good- Left Flexion (C6) 3+ Fair+ Extension (C7) 4- Good- PT-OP-Q Treatments Start: 02/03/24 12:58 Freq: Status: Active Protocol: Document 02/08/24 14:33 NM (Rec: 02/08/24 15:37 NM [id number]) Therapeutic Exercises Supine Exercises deep neck flexor Supine Exercise Name 1. head nods, 2. chin tucks, 3 . head ext, 4. rotation Side bilateral Equipment Used towel roll under occiput; all w/ diaphragmatic breathing Reps/Minutes 1x10 ea Comments no retraction w/ chin tuck; no inc pain, but limited range; cued pnfree ROM Sidelying Exercises open book Sidelying Exercise Name cervicothoracic rotation Side left Resistance partial ROM Reps/Minutes 1x5 Comments increased tension reported in L neck/shoulder Standing Exercises wall posture Standing Exercise Name 1. head nods, 2. B ER at 45 deg Side bilateral Resistance AROM Equipment Used small towel roll behind head Reps/Minutes 1. 1x10, 2. 1x10 Comments small ROM; pain free ROM for all Manual Therapy Treatment Soft Tissue Mobilization periscapular Body Location L rhomboids, LS, lat Mobilization Type Rolling Intensity/Depth Superficial Body Position Sidelying Comments R sidelying with pillow under head and between legs. Performed gentle rolling parallel to muscles, superficially with frequent check in with pt regarding comfort. Pt reports improvement in symptoms post manual treatment cervical spine Body Location paraspinals, UT, suboccipitals Mobilization Type Rolling Intensity/Depth Superficial Body Position Sidelying Comments R sidelying with pillow under head and between legs. Performed gentle rolling parallel to muscles, superficially with frequent check in with pt regarding comfort. Increased tightness and trigger point at LS and UT . Slight spasms with suboccipital mobilization. Pt reports improvement in symptoms post manual treatment Self-Care/Home Management Treatment Education Patient Education Home Exercise Program Other Education HEP: cervical nod/rotation on small towel roll, wall posture with B ER PT-OP-T Assessment and Plan Start: 02/03/24 12:58 Freq: Status: Active Protocol: Document 02/08/24 14:33 NM (Rec: 02/08/24 15:37 NM [id number]) Physical Therapy Assessment Goals Four Impairment pain management Impairment requires education regarding pain management Short Term Goal (STG) Pt will be able to verbalize at least 3 pain management strategies in order to improve symptom management and activity tolerance STG Duration 3 weeks Chemical Dependency Attendant Goal (LTG) Pt will be able to demonstrate at least 3 pain management strategies in order to improve symptom management and activity tolerance LTG Duration 6 weeks Three Impairment ROM Impairment cervical spine rotation limited- 65 deg R Short Term Goal (STG) Pt will improve R cervical spine rotation to at least 75 deg in order to improve visual scanning STG Duration 3 weeks Chemical Dependency Attendant Goal (LTG) Pt will improve R cervical spine rotation to at least 80 deg in order to improve visual scanning LTG Duration 6 weeks Two Impairment ROM Impairment Cervical spine rotation limited- L 55 deg Short Term Goal (STG) Pt will increase R cervical spine rotation to at least 65 deg in order to improve visual scanning STG Duration 3 weeks Fci Goal (LTG) Pt will increase R cervical spine rotation to at least 70 deg in order to improve visual scanning LTG Duration 6 weeks One Impairment HEP Impairment not performing HEP Short Term Goal (STG) Pt will report compliance with HEP at least 3x/wk in order to maximize progression with PT STG Duration 3 weeks Chemical Dependency Attendant Goal (LTG) Pt will report compliance with HEP at least 3x/wk in order to promote independence with PT after discharge LTG Duration 6 weeks Assessment Summary Assessment Pt tolerated session well, reporting decrease from 8/10 pain to 5/10 pain at end of session. Emphasis on reviewing HEP, decreasing soft tissue tightness of L shoulder and neck. During manual treatment, pt able to tolerate superficial soft tissue mobilization with gentle rolling. Education on gentle mobilization of suboccipitals with fingers or 2 soft balls under occiput; educated to avoid massage gun use on neck or along spine. Initiated deep neck flexor activation in both supine and standing against wall for tactile cues. Pt able to perform all activities within limited ROM but without increase in baseline pain. During open book, pt has limited thoracic and cervical spine ROM. Pt reports that she occasionally feels like she is going to pass out when standing and is unable to stand for long periods of time. Pt states that she did not feel this today when standing at but has before; PT educated pt to inform PCP if she hasn't already and to self monitor for breaks as needed since symptoms improve with sitting rest breaks. Pt would benefit from skilled PT for education regarding symptom management, improve cervical spine mobility and strength. Physical Therapy Plan Frequency and Duration Frequency of Treatment 1-2x/wk Duration of treatment (weeks) 6 Plan of Care Start Date 02/03/24 Plan of Care End Date 03/16/24 Therapeutic Interventions Therapeutic Interventions Balance Training,Canalithic Repositioning,Coordination Training,Gait Training,Home Exercise Program,Joint Mobilizations,Manual Therapy, Neuromuscular Re-education, Orthotic/Prosthetic Management ,Patient/Caregiver Education, Self-Care/Home Management, Sensory Integration, Therapeutic Activities, Therapeutic Exercises, Vestibular Rehabilitation Modalities Cold Pack/Ice Massage,Electric Stimulation,Hot Packs, Traction- Mechanical, Ultrasound Next Visit Focus/Plan Next Note Type Treatment Note Next Visit Plan CS reactive isometrics, SOR mobilization, MWM, quadruped rotation and CS mobility, CP, snow angels with wall posture Education on sleep positioning , posture, stretches Trial: nerve glides with wall posture, gentle STM to neck and periscapulars, suboccipital release, scapular and periscapular strengthening
--- NOTE | 2024-02-10 15:12 | PT.OTN ---
Current Diagnoses Other cervical disc displacement, unspecified cervical region (02/10/24) Other lack of coordination (02/10/24) Weakness (02/10/24) Strain of muscle, fascia and tendon at neck level, initial encounter (02/10/24) Physical Therapy Treatment Note PT-OP-A Visit Information Start: 02/03/24 12:58 Freq: Status: Active Protocol: Document 02/10/24 14:32 SP (Rec: 02/10/24 15:42 SP [id number]) Out-Patient Physical Therapy Visit Information Visit Information Visit Type Treatment Note Visit Note 24 visits MAX Visit Start Time 14:32 Visit Stop Time 15:12 Visit Number 3 Number of PLAYGROUND MONITOR Visits 1 Evaluation Information Evaluation Date 02/03/24 Precautions Precautions Hx of seizures, falls, concussion, dizziness PT-OP-B Current Condition Start: 02/03/24 12:58 Freq: Status: Active Protocol: Document 02/03/24 12:59 NM (Rec: 02/03/24 16:43 NM [id number]) Current Condition History of Current Condition Onset Date 6 years Current Complaints pain, N/T, weakness History of Current Condition Pt presents with headaches, neck pain, primarily L sided. 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 She has tried chiropractic, which increases her pain; stopped after 1.5 years, currently not using for pain reduction. She was into weight lifting 3x/day previously and hiking; currently unable to tolerate that level of exertion. 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 She had a son in 2020. She reports during that her L side would go numb and tingle. She had a thyroid cyst removal, which led to a recurrence in numbness and tingling. She is L handed. She reports that she had an MRI indicating several findings, about 1.5 ago, but she does not remember the results. 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 She also had an Xray with Dr. Dobson recently, but she does not know the results. Pt also reports L shoulder blade and mid back pain, in addition to low back pain, L sided leg pain with episodes of leg numbness. She reports that she is dropping stuff with increasing frequency, stumbling (also reports leg/back pain for several years). Pt also concerned about L sided facial twitching. She is planning on having PT prior to surgery, Dr. Dobson, but is set on having surgery after trying PT for a few visits. Current Functional Impairments (Reported) Functional Limitations- ADL's unable to lift son who is 30#; washing dishes/gripping Functional Limitations- Mobility/Gait running, walking > lighthead/ dizziness with exertion ( previous fainting/passing out with periods- less w/ IUD) Functional Limitations- Work/School she was in school until last year (april 2023) PT-OP-C Subjective Start: 02/03/24 12:58 Freq: Status: Active Protocol: Document 02/10/24 14:32 SP (Rec: 02/10/24 15:42 SP [id number]) OP-PT Subjective Patient Comments Patient Comments Pt reports Breath work and looking at items out front noticed less dizziness. She did have to take a double ibuprofen 300>600mg yesterday when woke up. PT-OP-F Manual Assessment Start: 02/03/24 12:58 Freq: Status: Active Protocol: Document 02/03/24 12:59 NM (Rec: 02/03/24 16:43 NM [id number]) Manual Assessments Soft Tissue Assessment Soft Tissue Mobility Assessment Increased tenderness and tightness of periscapular, cervical paraspinals, suboccipitals, SCM, scalenes. Left side significantly more restricted than R side. Joint Mobility Assessment Joint Mobility Assessment Tenderness and increased mobility with P-A springing of cervical spine, decreased mobility with lateral glides. PT-OP-G Mobility & Gait Start: 02/03/24 12:58 Freq: Status: Active Protocol: Document 02/03/24 12:59 NM (Rec: 02/03/24 16:43 NM [id number]) OP Gait Assessment Gait Gait Assistance Required: Independent Distance (Feet) 150 Gait Deviations General Gait Pattern Antalgic,Flexed Trunk Factors Limiting Gait Function Factors Limiting Gait Function Decreased Activity Tolerance, Decreased Sensation,Decreased Strength,Limited Range of Motion,Pain,Poor Balance PT-OP-H Neuro Start: 02/03/24 12:58 Freq: Status: Active Protocol: Document 02/03/24 12:59 NM (Rec: 02/03/24 16:43 NM [id number]) Sensation Evaluation Gross Sensation Gross Sensation Left UE Impaired,Left LE Impaired Sensation Description Paresthesia,Hyperesthesia, Numbness,Tingling Dermatome Impairments C7,C8,T1,T2 Comments Summary Comments Pt reports numbness of LLE but not formally tested due to time. LUE less sensitive compared to RUE at hand, more sensitive at brachium than RUE PT-OP-J Posture/Palpation/Skin Start: 02/03/24 12:58 Freq: Status: Active Protocol: Document 02/03/24 12:59 NM (Rec: 02/03/24 16:43 NM [id number]) Posture Evaluation Position Standing Head/C-Spine Posture Forward Head Shoulder Posture (L) Rounded,(R) Rounded,(L) Forward,(R) Forward Scapula Posture (L) Protracted,(L) Elevated Arm Posture (L) Internally Rotated,(R) Internally Rotated Pelvis Posture Anteriorly Tilted Weight Distribution Weight Shifted Right Palpation Assessment Location L shoulder Palpation Findings Soft Tissue Tightness, Tenderness Palpation Details Pain along rhomboids, scapular borders cervical spine Palpation Location L side more limited and painful than R side Palpation Findings Soft Tissue Tightness, Tenderness Palpation Details Tenderness along suboccipitals , paraspinals, SCM, upper trapezius, levator scapula PT-OP-K Range of Motion Start: 02/03/24 12:58 Freq: Status: Active Protocol: Document 02/03/24 12:59 NM (Rec: 02/03/24 16:43 NM [id number]) Cervical Spine Range of Motion Cervical Spine Active Degrees Flexion 35 Extension 30 Rotation Left 55 Rotation Right 65 Lateral Flexion Left 35 Lateral Flexion Right 40 ROM Limitations Soft Tissue Tightness,Pain Comments Extension, L lateral flexion, L rotation Shoulder Goniometric Range of Motion Shoulder Right Flexion 160 Abduction 170 Left Flexion 160 Abduction 140 Comments pinching with abd PT-OP-L Special Tests Start: 02/03/24 16:43 Freq: Status: Active Protocol: Document 02/03/24 12:59 NM (Rec: 02/03/24 16:44 NM [id number]) Special Tests Cervical Spine Special Tests Traction Test Results + Comments relieves symptoms Foraminal Compression Test Results + Comments L>R Upper Limb Tension Test Test Results + Comments Radial> median, ulnar Transverse Ligament Test Results - Vertebral Artery Test Results - Comments reports increased twitch in face but no other symptoms observed Alar Ligament Test Results - PT-OP-M Strength Start: 02/03/24 12:58 Freq: Status: Active Protocol: Document 02/03/24 12:59 NM (Rec: 02/03/24 16:43 NM [id number]) Cervical Spine Strength Cervical Spine Manual Muscle Testing Flexion (C1-2) 4- Good- Extension 3+ Fair+ Rotation Left 2+ Poor+ Rotation Right 3+ Fair+ Lateral Flexion Left (C3) 2+ Poor+ Lateral Flexion Right (C3) 3+ Fair+ Shoulder Strength Shoulder Manual Muscle Testing Right Flexion 4- Good- Abduction (C5) 4- Good- External Rotation 4- Good- Internal Rotation 4- Good- Left Flexion 3+ Fair+ Abduction (C5) 3+ Fair+ External Rotation 3+ Fair+ Internal Rotation 3+ Fair+ Elbow/Forearm Strength Elbow and Forearm Manual Muscle Testing Right Flexion (C6) 4- Good- Extension (C7) 4- Good- Left Flexion (C6) 3+ Fair+ Extension (C7) 4- Good- PT-OP-Q Treatments Start: 02/03/24 12:58 Freq: Status: Active Protocol: Document 02/10/24 14:32 SP (Rec: 02/10/24 15:42 SP [id number]) Therapeutic Exercises Supine Exercises deep neck flexor Supine Exercise Name 1. head nods, 2. chin tucks, 3 . head elong /c light ext 4. rotation Side bilateral Equipment Used towel roll under occiput; all w/ good diaphragmatic breathing Reps/Minutes 1x10 ea Comments no retraction w/ chin tuck; no inc pain, but limited range; cued pnfree ROM Sidelying Exercises FF Sidelying Exercise Name added to HEP Side left Reps/Minutes 3 reps before tired Comments cued scap retraction allow UR, soft fist, ELb Ext, FF approx 70* /c elev ABD Sidelying Exercise Name added to HEP Side left Resistance AROM Reps/Minutes 5 reps Comments tactile cues rhomboid, LT, serratus press little and humeral ER rnge 90>110 open book Sidelying Exercise Name cervicothoracic rotation Side left Resistance partial ROM Reps/Minutes 1x5 Comments 90 deg HABD arm, tactile cues scap retraction direction glide Standing Exercises wall posture Standing Exercise Name 1. head nods, 2. Humeral long axis anatomical pos side 3. B ER at 45 deg Side bilateral Resistance AROM Equipment Used small towel roll behind head Reps/Minutes 1. 1x10, 2. 1x10 Comments small ROM; pain free ROM for all, PPT/ no LB arch Manual Therapy Treatment Soft Tissue Mobilization periscapular Body Location L rhomboids, LS, lat Mobilization Type Rolling Intensity/Depth Superficial Body Position Sidelying Comments R sidelying with pillow under head and between legs. Performed gentle rolling parallel to muscles, superficially with frequent check in with pt regarding comfort. Pt reports improvement in symptoms post manual treatment cervical spine Body Location L paraspinals, UT, suboccipitals Mobilization Type Rolling Intensity/Depth Superficial Body Position R Sidelying Comments R sidelying with pillow under head and between legs. Performed gentle rolling parallel to muscles, superficially with frequent check in with pt regarding comfort. Increased tightness and trigger point at distal LS and distal spine scap UT. Slight spasms with suboccipital mobilization, reduction pressure. Pt reports improvement in symptoms post manual treatment Joint Mobilizations L scapulothoracic Direction retraction, depression Grade II Body Position R SL Comments PROM, hold UT stretch into depression, Upward rotation during ABD ther ex. PT-OP-T Assessment and Plan Start: 02/03/24 12:58 Freq: Status: Active Protocol: Document 02/10/24 14:32 SP (Rec: 02/10/24 15:42 SP [id number]) Physical Therapy Assessment Goals Four Impairment pain management Impairment requires education regarding pain management Short Term Goal (STG) Pt will be able to verbalize at least 3 pain management strategies in order to improve symptom management and activity tolerance STG Duration 3 weeks X Ray Examiner Of Aircraft Goal (LTG) Pt will be able to demonstrate at least 3 pain management strategies in order to improve symptom management and activity tolerance LTG Duration 6 weeks Three Impairment ROM Impairment cervical spine rotation limited- 65 deg R Short Term Goal (STG) Pt will improve R cervical spine rotation to at least 75 deg in order to improve visual scanning STG Duration 3 weeks Long-Term Goal (LTG) Pt will improve R cervical spine rotation to at least 80 deg in order to improve visual scanning LTG Duration 6 weeks Two Impairment ROM Impairment Cervical spine rotation limited- L 55 deg Short Term Goal (STG) Pt will increase R cervical spine rotation to at least 65 deg in order to improve visual scanning STG Duration 3 weeks X Ray Examiner Of [employer] Goal (LTG) Pt will increase R cervical spine rotation to at least 70 deg in order to improve visual scanning LTG Duration 6 weeks One Impairment HEP Impairment not performing HEP Short Term Goal (STG) Pt will report compliance with HEP at least 3x/wk in order to maximize progression with PT STG Duration 3 weeks X Ray Examiner [employer] Goal (LTG) Pt will report compliance with HEP at least 3x/wk in order to promote independence with PT after discharge LTG Duration 6 weeks Assessment Summary Assessment Pt good response to manual with good feedback pressure. Reviewed HEP with occ cues for not over pressure ext more elongate retro ROM over towel. Good tolerance to incorporated L shld ABD with cues for slight serratus press and humeral ER pinging pinch reduction in post GH/scap tolerant range (approx 90- 110deg). Physical Therapy Plan Frequency and Duration Frequency of Treatment 1-2x/wk Duration of treatment (weeks) 6 Plan of Care Start Date 02/03/24 Plan of Care End Date 03/16/24 Therapeutic Interventions Therapeutic Interventions Balance Training,Canalithic Repositioning,Coordination Training,Gait Training,Home Exercise Program,Joint Mobilizations,Manual Therapy, Neuromuscular Re-education, Orthotic/Prosthetic Management ,Patient/Caregiver Education, Self-Care/Home Management, Sensory Integration, Therapeutic Activities, Therapeutic Exercises, Vestibular Rehabilitation Modalities Cold Pack/Ice Massage,Electric Stimulation,Hot Packs, Traction- Mechanical, Ultrasound Next Visit Focus/Plan Next Note Type Treatment Note Next Visit Plan CS reactive isometrics, SOR mobilization, MWM ant/post shld/UT, quadruped rotation and CS mobility, supine over noodle/foam roller: SP/HABD/FF , CP, future snow angels with wall posture when more L shld AROM. Education on sleep positioning , posture, stretches Trial: nerve glides with wall posture, gentle STM to neck and periscapulars, suboccipital release, scapular and periscapular strengthening
--- NOTE | 2024-02-16 16:46 | PT.OTN ---
Current Diagnoses Other cervical disc displacement, unspecified cervical region (02/16/24) Other lack of coordination (02/16/24) Weakness (02/16/24) Strain of muscle, fascia and tendon at neck level, initial encounter (02/16/24) Physical Therapy Treatment Note PT-OP-A Visit Information Start: 02/03/24 12:58 Freq: Status: Active Protocol: Document 02/16/24 14:12 SW (Rec: 02/16/24 15:17 SW [id number]) Out-Patient Physical Therapy Visit Information Visit Information Visit Type Treatment Note Visit Note 24 visits MAX Visit Start Time 14:30 Visit Stop Time 15:10 Visit Number 4 Number of CULTURIST Visits 2 Precautions Precautions Hx of seizures, falls, concussion, dizziness PT-OP-B Current Condition Start: 02/03/24 12:58 Freq: Status: Active Protocol: Document 02/03/24 12:59 NM (Rec: 02/03/24 16:43 NM [id number]) Current Condition History of Current Condition Onset Date 6 years Current Complaints pain, N/T, weakness History of Current Condition Pt presents with headaches, neck pain, primarily L sided. 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 She has tried chiropractic, which increases her pain; stopped after 1.5 years, currently not using for pain reduction. She was into weight lifting 3x/day previously and hiking; currently unable to tolerate that level of exertion. 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 She had a son in 2020. She reports during that her L side would go numb and tingle. She had a thyroid cyst removal, which led to a recurrence in numbness and tingling. She is L handed. She reports that she had an MRI indicating several findings, about 1.5 ago, but she does not remember the results. 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 She also had an Xray with Dr. Dobson recently, but she does not know the results. Pt also reports L shoulder blade and mid back pain, in addition to low back pain, L sided leg pain with episodes of leg numbness. She reports that she is dropping stuff with increasing frequency, stumbling (also reports leg/back pain for several years). Pt also concerned about L sided facial twitching. She is planning on having PT prior to surgery, Dr. Dobson, but is set on having surgery after trying PT for a few visits. Current Functional Impairments (Reported) Functional Limitations- ADL's unable to lift son who is 30#; washing dishes/gripping Functional Limitations- Mobility/Gait running, walking > lighthead/ dizziness with exertion ( previous fainting/passing out with periods- less w/ IUD) Functional Limitations- Work/School she was in school until last year (april 2023) PT-OP-C Subjective Start: 02/03/24 12:58 Freq: Status: Active Protocol: Document 02/16/24 14:12 SW (Rec: 02/16/24 15:17 SW [id number]) OP-PT Subjective Patient Comments Patient Comments Pt reports tired today. Pt reports doing pretty good until this morning feeling sore in lower cervical. Pt reports day after PT felt a tension headache, layed in bed all day, then next day was fine. PT-OP-F Manual Assessment Start: 02/03/24 12:58 Freq: Status: Active Protocol: Document 02/03/24 12:59 NM (Rec: 02/03/24 16:43 NM [id number]) Manual Assessments Soft Tissue Assessment Soft Tissue Mobility Assessment Increased tenderness and tightness of periscapular, cervical paraspinals, suboccipitals, SCM, scalenes. Left side significantly more restricted than R side. Joint Mobility Assessment Joint Mobility Assessment Tenderness and increased mobility with P-A springing of cervical spine, decreased mobility with lateral glides. PT-OP-G Mobility & Gait Start: 02/03/24 12:58 Freq: Status: Active Protocol: Document 02/03/24 12:59 NM (Rec: 02/03/24 16:43 NM [id number]) OP Gait Assessment Gait Gait Assistance Required: Independent Distance (Feet) 150 Gait Deviations General Gait Pattern Antalgic,Flexed Trunk Factors Limiting Gait Function Factors Limiting Gait Function Decreased Activity Tolerance, Decreased Sensation,Decreased Strength,Limited Range of Motion,Pain,Poor Balance PT-OP-H Neuro Start: 02/03/24 12:58 Freq: Status: Active Protocol: Document 02/03/24 12:59 NM (Rec: 02/03/24 16:43 NM [id number]) Sensation Evaluation Gross Sensation Gross Sensation Left UE Impaired,Left LE Impaired Sensation Description Paresthesia,Hyperesthesia, Numbness,Tingling Dermatome Impairments C7,C8,T1,T2 Comments Summary Comments Pt reports numbness of LLE but not formally tested due to time. LUE less sensitive compared to RUE at hand, more sensitive at brachium than RUE PT-OP-J Posture/Palpation/Skin Start: 02/03/24 12:58 Freq: Status: Active Protocol: Document 02/03/24 12:59 NM (Rec: 02/03/24 16:43 NM [id number]) Posture Evaluation Position Standing Head/C-Spine Posture Forward Head Shoulder Posture (L) Rounded,(R) Rounded,(L) Forward,(R) Forward Scapula Posture (L) Protracted,(L) Elevated Arm Posture (L) Internally Rotated,(R) Internally Rotated Pelvis Posture Anteriorly Tilted Weight Distribution Weight Shifted Right Palpation Assessment Location L shoulder Palpation Findings Soft Tissue Tightness, Tenderness Palpation Details Pain along rhomboids, scapular borders cervical spine Palpation Location L side more limited and painful than R side Palpation Findings Soft Tissue Tightness, Tenderness Palpation Details Tenderness along suboccipitals , paraspinals, SCM, upper trapezius, levator scapula PT-OP-K Range of Motion Start: 02/03/24 12:58 Freq: Status: Active Protocol: Document 02/03/24 12:59 NM (Rec: 02/03/24 16:43 NM [id number]) Cervical Spine Range of Motion Cervical Spine Active Degrees Flexion 35 Extension 30 Rotation Left 55 Rotation Right 65 Lateral Flexion Left 35 Lateral Flexion Right 40 ROM Limitations Soft Tissue Tightness,Pain Comments Extension, L lateral flexion, L rotation Shoulder Goniometric Range of Motion Shoulder Right Flexion 160 Abduction 170 Left Flexion 160 Abduction 140 Comments pinching with abd PT-OP-L Special Tests Start: 02/03/24 16:43 Freq: Status: Active Protocol: Document 02/03/24 12:59 NM (Rec: 02/03/24 16:44 NM [id number]) Special Tests Cervical Spine Special Tests Traction Test Results + Comments relieves symptoms Foraminal Compression Test Results + Comments L>R Upper Limb Tension Test Test Results + Comments Radial> median, ulnar Transverse Ligament Test Results - Vertebral Artery Test Results - Comments reports increased twitch in face but no other symptoms observed Alar Ligament Test Results - PT-OP-M Strength Start: 02/03/24 12:58 Freq: Status: Active Protocol: Document 02/03/24 12:59 NM (Rec: 02/03/24 16:43 NM [id number]) Cervical Spine Strength Cervical Spine Manual Muscle Testing Flexion (C1-2) 4- Good- Extension 3+ Fair+ Rotation Left 2+ Poor+ Rotation Right 3+ Fair+ Lateral Flexion Left (C3) 2+ Poor+ Lateral Flexion Right (C3) 3+ Fair+ Shoulder Strength Shoulder Manual Muscle Testing Right Flexion 4- Good- Abduction (C5) 4- Good- External Rotation 4- Good- Internal Rotation 4- Good- Left Flexion 3+ Fair+ Abduction (C5) 3+ Fair+ External Rotation 3+ Fair+ Internal Rotation 3+ Fair+ Elbow/Forearm Strength Elbow and Forearm Manual Muscle Testing Right Flexion (C6) 4- Good- Extension (C7) 4- Good- Left Flexion (C6) 3+ Fair+ Extension (C7) 4- Good- PT-OP-Q Treatments Start: 02/03/24 12:58 Freq: Status: Active Protocol: Document 02/16/24 14:12 SW (Rec: 02/16/24 15:17 SW [id number]) Therapeutic Exercises Supine Exercises Isometrics Supine Exercise Name Cervical rotation- Trialed Side bilateral Resistance Gentle isometric Comments cued for breathwork, too painful at this time deep neck flexor Supine Exercise Name 1. head nods, 2. chin tucks, 3 . head elong /c light ext 4. rotation Side bilateral Equipment Used towel roll under occiput; all w/ good diaphragmatic breathing Reps/Minutes 1x10 ea Comments no retraction w/ chin tuck; no inc pain, but limited range; cued pnfree ROM Sidelying Exercises FF Sidelying Exercise Name added to HEP Side left Reps/Minutes 3 reps before tired Comments cued scap retraction allow UR, soft fist, ELb Ext, FF approx 70* /c elev ABD Sidelying Exercise Name added to HEP Side left Resistance AROM Reps/Minutes 5 reps Comments tactile cues rhomboid, LT, serratus press little and humeral ER rnge 90>110 open book Sidelying Exercise Name cervicothoracic rotation Side left Resistance partial ROM Reps/Minutes 1x5 Comments 90 deg HABD arm, tactile cues scap retraction direction glide Manual Therapy Treatment Soft Tissue Mobilization periscapular Body Location L rhomboids, LS, lat Mobilization Type Rolling Intensity/Depth Superficial Body Position Sidelying Comments R sidelying with pillow under head and between legs. Performed gentle rolling parallel to muscles, superficially with frequent check in with pt regarding comfort. decreased tension. cervical spine Body Location L paraspinals, UT, suboccipitals Mobilization Type Rolling Intensity/Depth Superficial Body Position R Sidelying Comments R sidelying with pillow under head and between legs. Performed gentle rolling parallel to muscles, superficially with frequent check in with pt regarding comfort. Increased tightness and trigger point at distal LS and distal spine scap UT. Slight spasms with suboccipital mobilization, reduction pressure, pt tender to very superficial, light palpation this session. Joint Mobilizations L scapulothoracic Direction retraction, depression Grade II Body Position R SL Comments PROM, hold UT stretch into depression, Upward rotation during ABD ther ex. PT-OP-R Modalities Start: 02/03/24 12:58 Freq: Status: Active Protocol: Document 02/16/24 14:12 SW (Rec: 02/16/24 15:17 [id number]) Hot Pack/Cold Pack Treatment Hot Pack Location Cervical Patient Position Hooklying Patient Tolerance Good Comments bolster under LE, mike within reach, x 15 min PT-OP-T Assessment and Plan Start: 02/03/24 12:58 Freq: Status: Active Protocol: Document 02/16/24 14:12 SW (Rec: 02/16/24 15:17 [id number]) Physical Therapy Assessment Goals Four Impairment pain management Impairment requires education regarding pain management Short Term Goal (STG) Pt will be able to verbalize at least 3 pain management strategies in order to improve symptom management and activity tolerance STG Duration 3 weeks Rodeo Rider Goal (LTG) Pt will be able to demonstrate at least 3 pain management strategies in order to improve symptom management and activity tolerance LTG Duration 6 weeks Three Impairment ROM Impairment cervical spine rotation limited- 65 deg R Short Term Goal (STG) Pt will improve R cervical spine rotation to at least 75 deg in order to improve visual scanning STG Duration 3 weeks Rodeo Rider Goal (LTG) Pt will improve R cervical spine rotation to at least 80 deg in order to improve visual scanning LTG Duration 6 weeks Two Impairment ROM Impairment Cervical spine rotation limited- L 55 deg Short Term Goal (STG) Pt will increase R cervical spine rotation to at least 65 deg in order to improve visual scanning STG Duration 3 weeks Rodeo Rider Goal (LTG) Pt will increase R cervical spine rotation to at least 70 deg in order to improve visual scanning LTG Duration 6 weeks One Impairment HEP Impairment not performing HEP Short Term Goal (STG) Pt will report compliance with HEP at least 3x/wk in order to maximize progression with PT STG Duration 3 weeks Jail Goal (LTG) Pt will report compliance with HEP at least 3x/wk in order to promote independence with PT after discharge LTG Duration 6 weeks Assessment Summary Assessment Pt tender to very superficial light touch, gentle STM in L cervical musculature, with radiating pain relieved post. Continued to work on periscapular muscles to decrease tension, increased pt shoulder ROM post STM. Trialed progression to gentle cervical isometrics for cervical rotation this session , pt unable to tolerate, too painful, discontinued. Plan to assess pt tolerance next session and progress as able. Physical Therapy Plan Frequency and Duration Frequency of Treatment 1-2x/wk Duration of treatment (weeks) 6 Plan of Care Start Date 02/03/24 Plan of Care End Date 03/16/24 Therapeutic Interventions Therapeutic Interventions Balance Training,Canalithic Repositioning,Coordination Training,Gait Training,Home Exercise Program,Joint Mobilizations,Manual Therapy, Neuromuscular Re-education, Orthotic/Prosthetic Management ,Patient/Caregiver Education, Self-Care/Home Management, Sensory Integration, Therapeutic Activities, Therapeutic Exercises, Vestibular Rehabilitation Modalities Cold Pack/Ice Massage,Electric Stimulation,Hot Packs, Traction- Mechanical, Ultrasound Next Visit Focus/Plan Next Note Type Treatment Note Next Visit Plan CS reactive isometrics, SOR mobilization, MWM ant/post shld/UT, quadruped rotation and CS mobility, supine over noodle/foam roller: SP/HABD/FF , CP, future snow angels with wall posture when more L shld AROM. Education on sleep positioning , posture, stretches Trial: nerve glides with wall posture, gentle STM to neck and periscapulars, suboccipital release, scapular and periscapular strengthening
--- NOTE | 2024-02-21 15:41 | PT.OTN ---
Current Diagnoses Other cervical disc displacement, unspecified cervical region (02/21/24) Other lack of coordination (02/21/24) Weakness (02/21/24) Strain of muscle, fascia and tendon at neck level, initial encounter (02/21/24) Physical Therapy Treatment Note PT-OP-A Visit Information Start: 02/03/24 12:58 Freq: Status: Active Protocol: Document 02/21/24 14:32 NM (Rec: 02/21/24 15:22 NM [id number]) Out-Patient Physical Therapy Visit Information Visit Information Visit Type Treatment Note Visit Note 24 visits MAX Visit Start Time 14:33 Visit Stop Time 15:13 Visit Number 5 Evaluation Information Evaluation Date 02/03/24 Precautions Precautions Hx of seizures, falls, concussion, dizziness PT-OP-B Current Condition Start: 02/03/24 12:58 Freq: Status: Active Protocol: Document 02/03/24 12:59 NM (Rec: 02/03/24 16:43 NM [id number]) Current Condition History of Current Condition Onset Date 6 years Current Complaints pain, N/T, weakness History of Current Condition Pt presents with headaches, neck pain, primarily L sided. 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 She has tried chiropractic, which increases her pain; stopped after 1.5 years, currently not using for pain reduction. She was into weight lifting 3x/day previously and hiking; currently unable to tolerate that level of exertion. 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 She had a son in 2020. She reports during that her L side would go numb and tingle. She had a thyroid cyst removal, which led to a recurrence in numbness and tingling. She is L handed. She reports that she had an MRI indicating several findings, about 1.5 ago, but she does not remember the results. 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 She also had an Xray with Dr. Dobson recently, but she does not know the results. Pt also reports L shoulder blade and mid back pain, in addition to low back pain, L sided leg pain with episodes of leg numbness. She reports that she is dropping stuff with increasing frequency, stumbling (also reports leg/back pain for several years). Pt also concerned about L sided facial twitching. She is planning on having PT prior to surgery, Dr. Dobson, but is set on having surgery after trying PT for a few visits. Current Functional Impairments (Reported) Functional Limitations- ADL's unable to lift son who is 30#; washing dishes/gripping Functional Limitations- Mobility/Gait running, walking > lighthead/ dizziness with exertion ( previous fainting/passing out with periods- less w/ IUD) Functional Limitations- Work/School she was in school until last year (april 2023) PT-OP-C Subjective Start: 02/03/24 12:58 Freq: Status: Active Protocol: Document 02/21/24 14:32 NM (Rec: 02/21/24 15:22 NM [id number]) OP-PT Subjective Patient Comments Patient Comments Pt planning on meeting with surgeon on 02/27, which will be 6 sessions. Reports got migraine after last session. Reports sessions helping, states exercises at home are going well except for sidelying flexion which causes her shoulder to hurt more. Currently 9/10 pain PT-OP-F Manual Assessment Start: 02/03/24 12:58 Freq: Status: Active Protocol: Document 02/03/24 12:59 NM (Rec: 02/03/24 16:43 NM [id number]) Manual Assessments Soft Tissue Assessment Soft Tissue Mobility Assessment Increased tenderness and tightness of periscapular, cervical paraspinals, suboccipitals, SCM, scalenes. Left side significantly more restricted than R side. Joint Mobility Assessment Joint Mobility Assessment Tenderness and increased mobility with P-A springing of cervical spine, decreased mobility with lateral glides. PT-OP-G Mobility & Gait Start: 02/03/24 12:58 Freq: Status: Active Protocol: Document 02/03/24 12:59 NM (Rec: 02/03/24 16:43 NM [id number]) OP Gait Assessment Gait Gait Assistance Required: Independent Distance (Feet) 150 Gait Deviations General Gait Pattern Antalgic,Flexed Trunk Factors Limiting Gait Function Factors Limiting Gait Function Decreased Activity Tolerance, Decreased Sensation,Decreased Strength,Limited Range of Motion,Pain,Poor Balance PT-OP-H Neuro Start: 02/03/24 12:58 Freq: Status: Active Protocol: Document 02/03/24 12:59 NM (Rec: 02/03/24 16:43 NM [id number]) Sensation Evaluation Gross Sensation Gross Sensation Left UE Impaired,Left LE Impaired Sensation Description Paresthesia,Hyperesthesia, Numbness,Tingling Dermatome Impairments C7,C8,T1,T2 Comments Summary Comments Pt reports numbness of LLE but not formally tested due to time. LUE less sensitive compared to RUE at hand, more sensitive at brachium than RUE PT-OP-J Posture/Palpation/Skin Start: 02/03/24 12:58 Freq: Status: Active Protocol: Document 02/03/24 12:59 NM (Rec: 02/03/24 16:43 NM [id number]) Posture Evaluation Position Standing Head/C-Spine Posture Forward Head Shoulder Posture (L) Rounded,(R) Rounded,(L) Forward,(R) Forward Scapula Posture (L) Protracted,(L) Elevated Arm Posture (L) Internally Rotated,(R) Internally Rotated Pelvis Posture Anteriorly Tilted Weight Distribution Weight Shifted Right Palpation Assessment Location L shoulder Palpation Findings Soft Tissue Tightness, Tenderness Palpation Details Pain along rhomboids, scapular borders cervical spine Palpation Location L side more limited and painful than R side Palpation Findings Soft Tissue Tightness, Tenderness Palpation Details Tenderness along suboccipitals , paraspinals, SCM, upper trapezius, levator scapula PT-OP-K Range of Motion Start: 02/03/24 12:58 Freq: Status: Active Protocol: Document 02/03/24 12:59 NM (Rec: 02/03/24 16:43 NM [id number]) Cervical Spine Range of Motion Cervical Spine Active Degrees Flexion 35 Extension 30 Rotation Left 55 Rotation Right 65 Lateral Flexion Left 35 Lateral Flexion Right 40 ROM Limitations Soft Tissue Tightness,Pain Comments Extension, L lateral flexion, L rotation Shoulder Goniometric Range of Motion Shoulder Right Flexion 160 Abduction 170 Left Flexion 160 Abduction 140 Comments pinching with abd PT-OP-L Special Tests Start: 02/03/24 16:43 Freq: Status: Active Protocol: Document 02/03/24 12:59 NM (Rec: 02/03/24 16:44 NM [id number]) Special Tests Cervical Spine Special Tests Traction Test Results + Comments relieves symptoms Foraminal Compression Test Results + Comments L>R Upper Limb Tension Test Test Results + Comments Radial> median, ulnar Transverse Ligament Test Results - Vertebral Artery Test Results - Comments reports increased twitch in face but no other symptoms observed Alar Ligament Test Results - PT-OP-M Strength Start: 02/03/24 12:58 Freq: Status: Active Protocol: Document 02/03/24 12:59 NM (Rec: 02/03/24 16:43 NM [id number]) Cervical Spine Strength Cervical Spine Manual Muscle Testing Flexion (C1-2) 4- Good- Extension 3+ Fair+ Rotation Left 2+ Poor+ Rotation Right 3+ Fair+ Lateral Flexion Left (C3) 2+ Poor+ Lateral Flexion Right (C3) 3+ Fair+ Shoulder Strength Shoulder Manual Muscle Testing Right Flexion 4- Good- Abduction (C5) 4- Good- External Rotation 4- Good- Internal Rotation 4- Good- Left Flexion 3+ Fair+ Abduction (C5) 3+ Fair+ External Rotation 3+ Fair+ Internal Rotation 3+ Fair+ Elbow/Forearm Strength Elbow and Forearm Manual Muscle Testing Right Flexion (C6) 4- Good- Extension (C7) 4- Good- Left Flexion (C6) 3+ Fair+ Extension (C7) 4- Good- PT-OP-Q Treatments Start: 02/03/24 12:58 Freq: Status: Active Protocol: Document 02/21/24 14:32 NM (Rec: 02/21/24 15:22 NM [id number]) Therapeutic Exercises Supine Exercises shoulder flexion/thoracic extension Supine Exercise Name resisted on eccentric lowering Side left Resistance legs elevated on bolster Equipment Used dowel, 1# tb on dowel Reps/Minutes 1x8, then reproduced with pt hands 1 rep for HEP Comments improved with resisted eccentric lowering Isometrics Supine Exercise Name lateral flex, rotation Side bilateral Equipment Used legs elevated on bolster, towel roll under nck Reps/Minutes 5x3 hold with breaths Comments cued breathwork, reports challenging; cued pain free Sitting Exercises scalene mobilization Side left Equipment Used rolling distal > proximal while looking up/R Reps/Minutes 1x10 Comments reports good symptom relief; edu on gentle to avoid plexus/ artery compress Manual Therapy Treatment Soft Tissue Mobilization chest Body Location pec major/minor, scalenes Comments Increased tension and tightness of pec muscles. Tender, small reduction in symptoms down L arm with mobilization periscapular Body Location L rhomboids, LS, lat Comments Has trigger point on LS, reduced with rolling and trigger point release. Overall symptom reduction with soft tissue mobilization. Increased tension of L rhomboids cervical spine Body Location L paraspinals, UT, suboccipitals, LS, scalenes Mobilization Type Rolling Intensity/Depth Superficial Body Position Supine Comments Demos spasms, palpable and visible muscle relaxation with soft tissue mobilization. Increased tension and tightness of suboccipitals, scalenes, UT Joint Mobilizations L scapulothoracic Direction retraction, depression Grade II Body Position R SL Comments MWM into ADD/retraction into PT hand, 1x5. Fatiguing and challenging Manual Traction cervical spine Body Position Hooklying Reps/Duration 4x30 Comments reports good symptom relief PT-OP-R Modalities Start: 02/03/24 12:58 Freq: Status: Active Protocol: Document 02/16/24 14:12 SW (Rec: 02/16/24 15:17 SW [id number]) Hot Pack/Cold Pack Treatment Hot Pack Location Cervical Patient Position Hooklying Patient Tolerance Good Comments bolster under LE, mike within reach, x 15 min PT-OP-T Assessment and Plan Start: 02/03/24 12:58 Freq: Status: Active Protocol: Document 02/21/24 14:32 NM (Rec: 02/21/24 15:22 NM [id number]) Physical Therapy Assessment Goals Four Impairment pain management Impairment requires education regarding pain management Short Term Goal (STG) Pt will be able to verbalize at least 3 pain management strategies in order to improve symptom management and activity tolerance STG Duration 3 weeks Snf Goal (LTG) Pt will be able to demonstrate at least 3 pain management strategies in order to improve symptom management and activity tolerance LTG Duration 6 weeks Three Impairment ROM Impairment cervical spine rotation limited- 65 deg R Short Term Goal (STG) Pt will improve R cervical spine rotation to at least 75 deg in order to improve visual scanning STG Duration 3 weeks Snf Goal (LTG) Pt will improve R cervical spine rotation to at least 80 deg in order to improve visual scanning LTG Duration 6 weeks Two Impairment ROM Impairment Cervical spine rotation limited- L 55 deg Short Term Goal (STG) Pt will increase R cervical spine rotation to at least 65 deg in order to improve visual scanning STG Duration 3 weeks Snf Goal (LTG) Pt will increase R cervical spine rotation to at least 70 deg in order to improve visual scanning LTG Duration 6 weeks One Impairment HEP Impairment not performing HEP Short Term Goal (STG) Pt will report compliance with HEP at least 3x/wk in order to maximize progression with PT 02/21/24: performing HEP 3x/wk STG Duration 3 weeks MET Snf Goal (LTG) Pt will report compliance with HEP at least 3x/wk in order to promote independence with PT after discharge LTG Duration 6 weeks Assessment Summary Assessment Pt tolerated session well with good response to manual treatment and therapeutic exercise. Pt reports reduction in pain symptoms from 9/10 to 5/10 at end of session. Continues to have increased muscle tension and decreased muscle length of cervical paraspinals and L sided periscapular muscles. Educated pt on gentle self-scalene mobilization with movement for symptom reduction into L hand . Pt able to tolerate very gentle isometrics in supine at low repetitions for muscle stabilization. Good feedback for eccentric flexion with dowel to maximize thoracic mobility. Pt would benefit from skilled PT for cervical spine stabilization, thoracic and shoulder mobility, in order to improve symptom management and activity tolerance. Physical Therapy Plan Frequency and Duration Frequency of Treatment 1-2x/wk Duration of treatment (weeks) 6 Plan of Care Start Date 02/03/24 Plan of Care End Date 03/16/24 Therapeutic Interventions Therapeutic Interventions Balance Training,Canalithic Repositioning,Coordination Training,Gait Training,Home Exercise Program,Joint Mobilizations,Manual Therapy, Neuromuscular Re-education, Orthotic/Prosthetic Management ,Patient/Caregiver Education, Self-Care/Home Management, Sensory Integration, Therapeutic Activities, Therapeutic Exercises, Vestibular Rehabilitation Modalities Cold Pack/Ice Massage,Electric Stimulation,Hot Packs, Traction- Mechanical, Ultrasound Next Visit Focus/Plan Next Note Type Treatment Note Next Visit Plan Next session: scalene review, quadruped cervical spine mobility, eccentric flexion, foam roller CS reactive isometrics, SOR mobilization, MWM ant/post shld/UT, quadruped rotation and CS mobility, supine over noodle/foam roller: SP/HABD/FF , CP, future snow angels with wall posture when more L shld AROM. Education on sleep positioning , posture, stretches Trial: nerve glides with wall posture, gentle STM to neck and periscapulars, suboccipital release, scapular and periscapular strengthening
--- NOTE | 2024-02-24 15:26 | PT.OTN ---
Current Diagnoses Other cervical disc displacement, unspecified cervical region (02/24/24) Other lack of coordination (02/24/24) Weakness (02/24/24) Strain of muscle, fascia and tendon at neck level, initial encounter (02/24/24) Physical Therapy Treatment Note PT-OP-A Visit Information Start: 02/03/24 12:58 Freq: Status: Active Protocol: Document 02/24/24 14:35 NM (Rec: 02/24/24 15:26 NM [id number]) Out-Patient Physical Therapy Visit Information Visit Information Visit Type Treatment Note Visit Note 24 visits MAX Visit Start Time 14:35 Visit Stop Time 15:15 Visit Number 6 Evaluation Information Evaluation Date 02/03/24 PT-OP-B Current Condition Start: 02/03/24 12:58 Freq: Status: Active Protocol: Document 02/03/24 12:59 NM (Rec: 02/03/24 16:43 NM [id number]) Current Condition History of Current Condition Onset Date 6 years Current Complaints pain, N/T, weakness History of Current Condition Pt presents with headaches, neck pain, primarily L sided. 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 She has tried chiropractic, which increases her pain; stopped after 1.5 years, currently not using for pain reduction. She was into weight lifting 3x/day previously and hiking; currently unable to tolerate that level of exertion. 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 She had a son in 2020. She reports during that her L side would go numb and tingle. She had a thyroid cyst removal, which led to a recurrence in numbness and tingling. She is L handed. She reports that she had an MRI indicating several findings, about 1.5 ago, but she does not remember the results. 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 She also had an Xray with Dr. Dobson recently, but she does not know the results. Pt also reports L shoulder blade and mid back pain, in addition to low back pain, L sided leg pain with episodes of leg numbness. She reports that she is dropping stuff with increasing frequency, stumbling (also reports leg/back pain for several years). Pt also concerned about L sided facial twitching. She is planning on having PT prior to surgery, Dr. Dobson, but is set on having surgery after trying PT for a few visits. Current Functional Impairments (Reported) Functional Limitations- ADL's unable to lift son who is 30#; washing dishes/gripping Functional Limitations- Mobility/Gait running, walking > lighthead/ dizziness with exertion ( previous fainting/passing out with periods- less w/ IUD) Functional Limitations- Work/School she was in school until last year (april 2023) PT-OP-C Subjective Start: 02/03/24 12:58 Freq: Status: Active Protocol: Document 02/24/24 14:35 NM (Rec: 02/24/24 15:26 NM [id number]) OP-PT Subjective Patient Comments Patient Comments Pt reports that she has L sided pain, headache and anticipating a migraine. She was making breakfast for her son, when she felt like she pulled her neck muscles. Follows up with surgeon on , will likely set surgery date. Not wanting to d/c today in case needs more PT due to insurance PT-OP-F Manual Assessment Start: 02/03/24 12:58 Freq: Status: Active Protocol: Document 02/03/24 12:59 NM (Rec: 02/03/24 16:43 NM [id number]) Manual Assessments Soft Tissue Assessment Soft Tissue Mobility Assessment Increased tenderness and tightness of periscapular, cervical paraspinals, suboccipitals, SCM, scalenes. Left side significantly more restricted than R side. Joint Mobility Assessment Joint Mobility Assessment Tenderness and increased mobility with P-A springing of cervical spine, decreased mobility with lateral glides. PT-OP-G Mobility & Gait Start: 02/03/24 12:58 Freq: Status: Active Protocol: Document 02/03/24 12:59 NM (Rec: 02/03/24 16:43 NM [id number]) OP Gait Assessment Gait Gait Assistance Required: Independent Distance (Feet) 150 Gait Deviations General Gait Pattern Antalgic,Flexed Trunk Factors Limiting Gait Function Factors Limiting Gait Function Decreased Activity Tolerance, Decreased Sensation,Decreased Strength,Limited Range of Motion,Pain,Poor Balance PT-OP-H Neuro Start: 02/03/24 12:58 Freq: Status: Active Protocol: Document 02/03/24 12:59 NM (Rec: 02/03/24 16:43 NM [id number]) Sensation Evaluation Gross Sensation Gross Sensation Left UE Impaired,Left LE Impaired Sensation Description Paresthesia,Hyperesthesia, Numbness,Tingling Dermatome Impairments C7,C8,T1,T2 Comments Summary Comments Pt reports numbness of LLE but not formally tested due to time. LUE less sensitive compared to RUE at hand, more sensitive at brachium than RUE PT-OP-J Posture/Palpation/Skin Start: 02/03/24 12:58 Freq: Status: Active Protocol: Document 02/03/24 12:59 NM (Rec: 02/03/24 16:43 NM [id number]) Posture Evaluation Position Standing Head/C-Spine Posture Forward Head Shoulder Posture (L) Rounded,(R) Rounded,(L) Forward,(R) Forward Scapula Posture (L) Protracted,(L) Elevated Arm Posture (L) Internally Rotated,(R) Internally Rotated Pelvis Posture Anteriorly Tilted Weight Distribution Weight Shifted Right Palpation Assessment Location L shoulder Palpation Findings Soft Tissue Tightness, Tenderness Palpation Details Pain along rhomboids, scapular borders cervical spine Palpation Location L side more limited and painful than R side Palpation Findings Soft Tissue Tightness, Tenderness Palpation Details Tenderness along suboccipitals , paraspinals, SCM, upper trapezius, levator scapula PT-OP-K Range of Motion Start: 02/03/24 12:58 Freq: Status: Active Protocol: Document 02/03/24 12:59 NM (Rec: 02/03/24 16:43 NM [id number]) Cervical Spine Range of Motion Cervical Spine Active Degrees Flexion 35 Extension 30 Rotation Left 55 Rotation Right 65 Lateral Flexion Left 35 Lateral Flexion Right 40 ROM Limitations Soft Tissue Tightness,Pain Comments Extension, L lateral flexion, L rotation Shoulder Goniometric Range of Motion Shoulder Right Flexion 160 Abduction 170 Left Flexion 160 Abduction 140 Comments pinching with abd PT-OP-L Special Tests Start: 02/03/24 16:43 Freq: Status: Active Protocol: Document 02/03/24 12:59 NM (Rec: 02/03/24 16:44 NM [id number]) Special Tests Cervical Spine Special Tests Traction Test Results + Comments relieves symptoms Foraminal Compression Test Results + Comments L>R Upper Limb Tension Test Test Results + Comments Radial> median, ulnar Transverse Ligament Test Results - Vertebral Artery Test Results - Comments reports increased twitch in face but no other symptoms observed Alar Ligament Test Results - PT-OP-M Strength Start: 02/03/24 12:58 Freq: Status: Active Protocol: Document 02/03/24 12:59 NM (Rec: 02/03/24 16:43 NM [id number]) Cervical Spine Strength Cervical Spine Manual Muscle Testing Flexion (C1-2) 4- Good- Extension 3+ Fair+ Rotation Left 2+ Poor+ Rotation Right 3+ Fair+ Lateral Flexion Left (C3) 2+ Poor+ Lateral Flexion Right (C3) 3+ Fair+ Shoulder Strength Shoulder Manual Muscle Testing Right Flexion 4- Good- Abduction (C5) 4- Good- External Rotation 4- Good- Internal Rotation 4- Good- Left Flexion 3+ Fair+ Abduction (C5) 3+ Fair+ External Rotation 3+ Fair+ Internal Rotation 3+ Fair+ Elbow/Forearm Strength Elbow and Forearm Manual Muscle Testing Right Flexion (C6) 4- Good- Extension (C7) 4- Good- Left Flexion (C6) 3+ Fair+ Extension (C7) 4- Good- PT-OP-Q Treatments Start: 02/03/24 12:58 Freq: Status: Active Protocol: Document 02/24/24 14:35 NM (Rec: 02/24/24 15:26 NM [id number]) Therapeutic Exercises Supine Exercises pec stretch Supine Exercise Name 1. T stretch, 2. chest catalyst manufacturing operator Side bilateral Reps/Minutes 1. 3 min, 2. 1x5 Comments post manual tx Sitting Exercises scapular retraction Side bilateral Resistance lvl 1 band around wrists Reps/Minutes 5 Comments fatigues; pain free but feels like scapula popping out when protracts thoracic extension Equipment Used foam roller, seated in mesh chair Reps/Minutes 10 with 2 hold Standing Exercises Wall slide and Y lift Standing Exercise Name mini Y lift off Side left Resistance AROM Reps/Minutes 3 Comments no nerve symptoms; challenging ; cued for scap depression w/ attempted lift scapular protraction Standing Exercise Name mini plank on elbows push-up plus Side bilateral Reps/Minutes 5 Comments pain free, challenging Other Exercises quadruped Other Exercise Name 1. cervical spine rotation and flex/ext, 2. scapular depression Side bilateral Reps/Minutes 10 ea Manual Therapy Treatment Soft Tissue Mobilization chest Body Location pec major/minor, scalenes Mobilization Type Rolling,Strumming Intensity/Depth Moderate Body Position Hooklying Comments Increased tension and tightness of pec muscles. Cordlike. Minimal reduction in tightness but feels better Education to focus on this at home, using hands periscapular Body Location L rhomboids, LS, lat Mobilization Type Rolling Body Position Sitting Comments Increased L sided tightness, small improvement with gentle rolling MWM using LS looking toward R hip, reports small symptom reduction into L arm cervical spine Body Location L paraspinals, UT, suboccipitals, LS, scalenes Mobilization Type Rolling Intensity/Depth Superficial Body Position sit,sup Comments Improved muscle relaxation Joint Mobilizations L scapulothoracic Direction retraction, depression Grade II Comments performed in sidelying PROM > AAROM, and in quadruped AROM into PT hand Challenging. Feels stuck when moving into depression Self-Care/Home Management Treatment Education Patient Education Home Exercise Program Other Education HEP: supine pec stretch, thoracic ext in chair with foam roller PT-OP-R Modalities Start: 02/03/24 12:58 Freq: Status: Active Protocol: Document 02/16/24 14:12 SW (Rec: 02/16/24 15:17 SW [id number]) Hot Pack/Cold Pack Treatment Hot Pack Location Cervical Patient Position Hooklying Patient Tolerance Good Comments bolster under LE, mike within reach, x 15 min PT-OP-T Assessment and Plan Start: 02/03/24 12:58 Freq: Status: Active Protocol: Document 02/24/24 14:35 NM (Rec: 02/24/24 15:26 NM [id number]) Physical Therapy Assessment Goals Four Impairment pain management Impairment requires education regarding pain management Short Term Goal (STG) Pt will be able to verbalize at least 3 pain management strategies in order to improve symptom management and activity tolerance STG Duration 3 weeks Bullard Operator Goal (LTG) Pt will be able to demonstrate at least 3 pain management strategies in order to improve symptom management and activity tolerance LTG Duration 6 weeks Three Impairment ROM Impairment cervical spine rotation limited- 65 deg R Short Term Goal (STG) Pt will improve R cervical spine rotation to at least 75 deg in order to improve visual scanning STG Duration 3 weeks Usp Goal (LTG) Pt will improve R cervical spine rotation to at least 80 deg in order to improve visual scanning LTG Duration 6 weeks Two Impairment ROM Impairment Cervical spine rotation limited- L 55 deg Short Term Goal (STG) Pt will increase R cervical spine rotation to at least 65 deg in order to improve visual scanning STG Duration 3 weeks Usp Goal (LTG) Pt will increase R cervical spine rotation to at least 70 deg in order to improve visual scanning LTG Duration 6 weeks One Impairment HEP Impairment not performing HEP Short Term Goal (STG) Pt will report compliance with HEP at least 3x/wk in order to maximize progression with PT 02/21/24: performing HEP 3x/wk STG Duration 3 weeks MET Bullard Operator Goal (LTG) Pt will report compliance with HEP at least 3x/wk in order to promote independence with PT after discharge LTG Duration 6 weeks Assessment Summary Assessment Pt fatigued prior to and after session. Pt with good effort during session, reports overall reduction in symptoms and muscle relaxation. Continues to have increased tightness in L periscapulars, cervical paraspinals, and pectoralis muscle. Educated on use of gentle soft tissue mobilization of pectoralis, followed by chest catalyst manufacturing operator and scapular retraction to maintain muscle length. Demonstrates good feedback to pectoralis stretching and manual treatment. Pt fatigues easily with scapular exercises , only able to tolerate a few reps per set. Initiated seated thoracic extension to improve overall spinal mobility. Pt would benefit from skilled PT for symptom management, cervical spine mobility and strengthening in order to improve activity tolerance. Physical Therapy Plan Frequency and Duration Frequency of Treatment 1-2x/wk Duration of treatment (weeks) 6 Plan of Care Start Date 02/03/24 Plan of Care End Date 03/16/24 Therapeutic Interventions Therapeutic Interventions Balance Training,Canalithic Repositioning,Coordination Training,Gait Training,Home Exercise Program,Joint Mobilizations,Manual Therapy, Neuromuscular Re-education, Orthotic/Prosthetic Management ,Patient/Caregiver Education, Self-Care/Home Management, Sensory Integration, Therapeutic Activities, Therapeutic Exercises, Vestibular Rehabilitation Modalities Cold Pack/Ice Massage,Electric Stimulation,Hot Packs, Traction- Mechanical, Ultrasound Next Visit Focus/Plan Next Note Type Treatment Note Next Visit Plan Next session: supine isometrics, seated reactive isometrics with band, quadruped ROM, periscapular strengthening CS reactive isometrics, SOR mobilization, MWM ant/post shld/UT, quadruped rotation and CS mobility, supine over noodle/foam roller: SP/HABD/FF , CP, future snow angels with wall posture when more L shld AROM. Education on sleep positioning , posture, stretches Trial: nerve glides with wall posture, gentle STM to neck and periscapulars, suboccipital release, scapular and periscapular strengthening
--- NOTE | 2024-05-16 11:26 | PT.OPDS ---
Current Diagnoses Other cervical disc displacement, unspecified cervical region (02/24/24) Other lack of coordination (02/24/24) Weakness (02/24/24) Strain of muscle, fascia and tendon at neck level, initial encounter (02/24/24) Visit Care Team Role Provider Type ISABEL Bloom Family Provider Non-Staff Primary Care Provider Specialty: Medical Address: [address] [place] [address], [place], [address] Email: Corwin Dobson MD Attending Provider Physician Referring Provider Specialty: Orthopedic Surgery Address: [address] [place] [address], [place], [address] Email: Visit Number Visit Number 6 Discharge Summary PT-OP-B Current Condition Start: 02/03/24 12:58 Freq: Status: Active Protocol: Document 02/03/24 12:59 NM (Rec: 02/03/24 16:43 NM [id number]) Current Condition History of Current Condition Onset Date 6 years Current Complaints pain, N/T, weakness History of Current Condition Pt presents with headaches, neck pain, primarily L sided. 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 She has tried chiropractic, which increases her pain; stopped after 1.5 years, currently not using for pain reduction. She was into weight lifting 3x/day previously and hiking; currently unable to tolerate that level of exertion. 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 She had a son in 2020. She reports during that her L side would go numb and tingle. She had a thyroid cyst removal, which led to a recurrence in numbness and tingling. She is L handed. She reports that she had an MRI indicating several findings, about 1.5 ago, but she does not remember the results. 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 She also had an Xray with Dr. Dobson recently, but she does not know the results. Pt also reports L shoulder blade and mid back pain, in addition to low back pain, L sided leg pain with episodes of leg numbness. She reports that she is dropping stuff with increasing frequency, stumbling (also reports leg/back pain for several years). Pt also concerned about L sided facial twitching. She is planning on having PT prior to surgery, Dr. Dobson, but is set on having surgery after trying PT for a few visits. Current Functional Impairments (Reported) Functional Limitations- ADL's unable to lift son who is 30#; washing dishes/gripping Functional Limitations- Mobility/Gait running, walking > lighthead/ dizziness with exertion ( previous fainting/passing out with periods- less w/ IUD) Functional Limitations- Work/School she was in school until last year (april 2023) PT-OP-C Subjective Start: 02/03/24 12:58 Freq: Status: Active Protocol: Document 02/24/24 14:35 NM (Rec: 02/24/24 15:26 NM [id number]) OP-PT Subjective Patient Comments Patient Comments Pt reports that she has L sided pain, headache and anticipating a migraine. She was making breakfast for her son, when she felt like she pulled her neck muscles. Follows up with surgeon on , will likely set surgery date. Not wanting to d/c today in case needs more PT due to insurance PT-OP-F Manual Assessment Start: 02/03/24 12:58 Freq: Status: Active Protocol: Document 02/03/24 12:59 NM (Rec: 02/03/24 16:43 NM [id number]) Manual Assessments Soft Tissue Assessment Soft Tissue Mobility Assessment Increased tenderness and tightness of periscapular, cervical paraspinals, suboccipitals, SCM, scalenes. Left side significantly more restricted than R side. Joint Mobility Assessment Joint Mobility Assessment Tenderness and increased mobility with P-A springing of cervical spine, decreased mobility with lateral glides. PT-OP-G Mobility & Gait Start: 02/03/24 12:58 Freq: Status: Active Protocol: Document 02/03/24 12:59 NM (Rec: 02/03/24 16:43 NM [id number]) OP Gait Assessment Gait Gait Assistance Required: Independent Distance (Feet) 150 Gait Deviations General Gait Pattern Antalgic,Flexed Trunk Factors Limiting Gait Function Factors Limiting Gait Function Decreased Activity Tolerance, Decreased Sensation,Decreased Strength,Limited Range of Motion,Pain,Poor Balance PT-OP-H Neuro Start: 02/03/24 12:58 Freq: Status: Active Protocol: Document 02/03/24 12:59 NM (Rec: 02/03/24 16:43 NM [id number]) Sensation Evaluation Gross Sensation Gross Sensation Left UE Impaired,Left LE Impaired Sensation Description Paresthesia,Hyperesthesia, Numbness,Tingling Dermatome Impairments C7,C8,T1,T2 Comments Summary Comments Pt reports numbness of LLE but not formally tested due to time. LUE less sensitive compared to RUE at hand, more sensitive at brachium than RUE PT-OP-J Posture/Palpation/Skin Start: 02/03/24 12:58 Freq: Status: Active Protocol: Document 02/03/24 12:59 NM (Rec: 02/03/24 16:43 NM [id number]) Posture Evaluation Position Standing Head/C-Spine Posture Forward Head Shoulder Posture (L) Rounded,(R) Rounded,(L) Forward,(R) Forward Scapula Posture (L) Protracted,(L) Elevated Arm Posture (L) Internally Rotated,(R) Internally Rotated Pelvis Posture Anteriorly Tilted Weight Distribution Weight Shifted Right Palpation Assessment Location L shoulder Palpation Findings Soft Tissue Tightness, Tenderness Palpation Details Pain along rhomboids, scapular borders cervical spine Palpation Location L side more limited and painful than R side Palpation Findings Soft Tissue Tightness, Tenderness Palpation Details Tenderness along suboccipitals , paraspinals, SCM, upper trapezius, levator scapula PT-OP-K Range of Motion Start: 02/03/24 12:58 Freq: Status: Active Protocol: Document 02/03/24 12:59 NM (Rec: 02/03/24 16:43 NM [id number]) Cervical Spine Range of Motion Cervical Spine Active Degrees Flexion 35 Extension 30 Rotation Left 55 Rotation Right 65 Lateral Flexion Left 35 Lateral Flexion Right 40 ROM Limitations Soft Tissue Tightness,Pain Comments Extension, L lateral flexion, L rotation Shoulder Goniometric Range of Motion Shoulder Right Flexion 160 Abduction 170 Left Flexion 160 Abduction 140 Comments pinching with abd PT-OP-L Special Tests Start: 02/03/24 16:43 Freq: Status: Active Protocol: Document 02/03/24 12:59 NM (Rec: 02/03/24 16:44 NM [id number]) Special Tests Cervical Spine Special Tests Traction Test Results + Comments relieves symptoms Foraminal Compression Test Results + Comments L>R Upper Limb Tension Test Test Results + Comments Radial> median, ulnar Transverse Ligament Test Results - Vertebral Artery Test Results - Comments reports increased twitch in face but no other symptoms observed Alar Ligament Test Results - PT-OP-M Strength Start: 02/03/24 12:58 Freq: Status: Active Protocol: Document 02/03/24 12:59 NM (Rec: 02/03/24 16:43 NM [id number]) Cervical Spine Strength Cervical Spine Manual Muscle Testing Flexion (C1-2) 4- Good- Extension 3+ Fair+ Rotation Left 2+ Poor+ Rotation Right 3+ Fair+ Lateral Flexion Left (C3) 2+ Poor+ Lateral Flexion Right (C3) 3+ Fair+ Shoulder Strength Shoulder Manual Muscle Testing Right Flexion 4- Good- Abduction (C5) 4- Good- External Rotation 4- Good- Internal Rotation 4- Good- Left Flexion 3+ Fair+ Abduction (C5) 3+ Fair+ External Rotation 3+ Fair+ Internal Rotation 3+ Fair+ Elbow/Forearm Strength Elbow and Forearm Manual Muscle Testing Right Flexion (C6) 4- Good- Extension (C7) 4- Good- Left Flexion (C6) 3+ Fair+ Extension (C7) 4- Good- PT-OP-T Assessment and Plan Start: 02/03/24 12:58 Freq: Status: Active Protocol: Document 05/16/24 11:20 NM (Rec: 05/16/24 11:26 NM [id number]) Physical Therapy Assessment Goals Four Impairment pain management Impairment requires education regarding pain management Short Term Goal (STG) Pt will be able to verbalize at least 3 pain management strategies in order to improve symptom management and activity tolerance STG Duration 3 weeks Director Of Accreditation Goal (LTG) Pt will be able to demonstrate at least 3 pain management strategies in order to improve symptom management and activity tolerance LTG Duration 6 weeks Three Impairment ROM Impairment cervical spine rotation limited- 65 deg R Short Term Goal (STG) Pt will improve R cervical spine rotation to at least 75 deg in order to improve visual scanning STG Duration 3 weeks Skilled Nursing Goal (LTG) Pt will improve R cervical spine rotation to at least 80 deg in order to improve visual scanning LTG Duration 6 weeks Two Impairment ROM Impairment Cervical spine rotation limited- L 55 deg Short Term Goal (STG) Pt will increase R cervical spine rotation to at least 65 deg in order to improve visual scanning STG Duration 3 weeks Skilled Nursing Goal (LTG) Pt will increase R cervical spine rotation to at least 70 deg in order to improve visual scanning LTG Duration 6 weeks One Impairment HEP Impairment not performing HEP Short Term Goal (STG) Pt will report compliance with HEP at least 3x/wk in order to maximize progression with PT 02/21/24: performing HEP 3x/wk STG Duration 3 weeks MET Director Of Accreditation Goal (LTG) Pt will report compliance with HEP at least 3x/wk in order to promote independence with PT after discharge LTG Duration 6 weeks Assessment Summary Assessment Pt was evaluated in January 2024 for cervical spine pain. She had limited insurance visits and was attending PT in preparation for possible spinal surgery. Pt attended x5 visits following evaluation. Pt had follow up with surgeon on 02/28/24 and cancelled remaining appointments. At 02/23 visit, pt requested not to discharge at that date due to possible need for more PT visits following appointment. Pt made minimal progress with PT due to pain, but gave good effort and demonstrated compliance with HEP. Pt has not been seen in clinic since 02/24/24 visit and plan of care is currently . Pt will need new referral for PT Physical Therapy Plan Frequency and Duration Frequency of Treatment 1-2x/wk Duration of treatment (weeks) 6 Plan of Care Start Date 02/03/24 Plan of Care End Date 03/16/24 Therapeutic Interventions Therapeutic Interventions Balance Training,Canalithic Repositioning,Coordination Training,Gait Training,Home Exercise Program,Joint Mobilizations,Manual Therapy, Neuromuscular Re-education, Orthotic/Prosthetic Management ,Patient/Caregiver Education, Self-Care/Home Management, Sensory Integration, Therapeutic Activities, Therapeutic Exercises, Vestibular Rehabilitation Modalities Cold Pack/Ice Massage,Electric Stimulation,Hot Packs, Traction- Mechanical, Ultrasound Discharge Physical Therapy Discharge Reasons No Longer Attending PT Discharge Comments Pt has not been seen in clinic since 02/24/24 visit and plan of care is currently . Pt was meeting with surgeon about possible surgery. Pt will need new referral for PT following surgery due to change in medical status Next Visit Focus/Plan Next Note Type Discharge Summary Next Visit Plan discharge from PT
== END 2024-05-22 13:30 | disposition home or self-care (01) ==
LOC: PHYS 14:30
PROVIDERS: Family Provider Nurse Practitioner Family; PCP Nurse Practitioner Family; Referring Provider Orthopaedic Surgery; Visit Provider Orthopaedic Surgery
DX: M50.20 Other cervical disc displacement, unspecified cervical region (principal); S16.1XXA Strain of muscle, fascia and tendon at neck level, initial encounter; R53.1 Weakness; R27.8 Other lack of coordination
CPT/HCPCS: 97110; 97140; 97162; 97530

== ENCOUNTER 2024-08-14 14:53 | Emergency (ER) | payer OTHER, MEDICAID, SELFPAY ==
[2024-08-14 15:00] VITALS: BP 119/81; PULSE 95; RESP 16; TEMP 36.9; O2SAT 98; BMI 34.7
--- NOTE | 2024-08-14 16:59 | ED.SKABFB ---
HPI - Skin/Abscess/Foreign Bdy <Laurie Neff PA-C - Last Filed: 08/14/24 17:22> General Chief complaint: Skin/Abscess/Foreign Body Stated complaint: rash Time Seen by Provider: 08/14/24 15:47 Source: patient Mode of arrival: Ambulatory Limitations: no limitations History of Present Illness HPI narrative: 33-year-old female presents to the ED with 5 days of itchy, truncal rash. Patient states that she has eczema and is usually very careful about not changing any products. However, recently she used a new detergent after which she developed a truncal rash. The rash is itchy. No mucosal involvement. Patient has not tried any medications for it. Patient states she is allergic to Benadryl and feels anxious and itchy on the inside when she takes it. Patient is also allergic to Tylenol and Reglan. Related Data Previous Rx's Medication Instructions Recorded ondansetron 4 mg disintegrating 4 mg PO TID-QID PRN nausea and 03/25/23 tablet vomiting #10 tabs ondansetron 4 mg disintegrating 4 mg PO TID-QID PRN nausea and 03/25/23 tablet vomiting #10 tabs prednisone 20 mg tablet 40 mg (2 x 20 mg) PO DAILY 5 days 08/14/24 #10 tabs triamcinolone acetonide 0.025 % 1 applic topical BID 2 weeks #454 08/14/24 topical ointment grams Allergies Allergy/AdvReac Type Severity Reaction Status Date / Time acetaminophen Allergy Severe Hives Verified 10/27/23 13:42 diphenhydramine Allergy Hives Verified 10/27/23 13:42 [From Benadryl] metoclopramide [From Reglan] Allergy Hives Verified 10/27/23 13:42 Review of Systems <Laurie Neff PA-C - Last Filed: 08/14/24 17:22> Constitutional Constitutional: Denies chills, Denies fatigue, Denies fever(s), Denies frequent falls, Denies lethargy and Denies weakness Eyes Eyes: Denies change in vision, Denies eye discharge, Denies irritation and Denies loss of vision ENT Ears, Nose, Mouth, and Throat: Denies change in voice, Denies dizziness, Denies neck pain, Denies sore throat and Denies throat swelling Cardiovascular Cardiovascular: Denies chest pain, Denies irregular heart rhythm, Denies lightheadedness, Denies palpitations, Denies dyspnea, Denies dyspnea on exertion and Denies orthopnea Respiratory Respiratory: Denies cough, Denies dyspnea, Denies dyspnea on exertion and Denies wheezing Gastrointestinal Gastrointestinal: Denies abdominal pain, Denies change in bowel habits, Denies diarrhea, Denies nausea and Denies vomiting Musculoskeletal Musculoskeletal: Denies neck pain and Denies numbness Integumentary/Breasts Skin/Breast: Reports pruritus, Denies erythema, Reports rash and Denies wounds Neurologic Neurologic: Denies behavioral changes, Denies confusion, Denies dizziness, Denies frequent falls, Denies loss of vision, Denies numbness and Denies weakness Psychiatric Psychiatric: Denies anxiety, Denies behavioral changes, Denies confusion, Denies depression, Denies homicidal ideation and Denies suicidal ideation Endocrine Endocrine: Denies fatigue, Denies flushing and Denies palpitations Hematologic/Lymphatic Hematologic/Lymphatic: Denies easy bruising Allergic/Immunologic Allergic/Immunologic: Denies urticaria, Denies throat swelling and Denies wheezing Patient History <Laurie Neff PA-C - Last Filed: 08/14/24 17:22> Medical History Hemorrhoids Social History Smoking Status: Never smoker Smoking Status: Never smoker alcohol intake frequency: holidays/special occasions only Substance Use Type: marijuana Exam <Laurie Neff PA-C - Last Filed: 08/14/24 17:22> Narrative Exam Narrative: Const General:?cooperative, healthy appearing and comfortable [facility] Head:?normal to inspection Ears:?hearing grossly normal bilaterally Nose:?external nose normal Face and sinus:?normal facial exam and sinuses nontender Mouth:?oral mucosae normal Throat:?posterior oropharynx normal Eyes General:?appearance normal, both eyes and all related structures Neck Neck:?normal visual inspection and no lymphadenopathy noted Resp Effort & Inspection:?normal respiratory effort Auscultation:?clear to auscultation bilaterally Cardio Rate:?regular rate Rhythm:?regular rhythm Integumentary Discrete, erythematous, raised, dry truncal rash most consistent with atopic dermatitis. No mucosal involvement. Neuro General:?patient alert, patient awake and patient oriented x3 Initial Vital Signs Initial Vital Signs: Vital Signs Temperature 98.5 F 08/14/24 15:00 Pulse Rate 95 H 08/14/24 15:00 Respiratory Rate 16 08/14/24 15:00 Blood Pressure 119/81 08/14/24 15:00 Pulse Oximetry 98 08/14/24 15:00 Oxygen Delivery Method Room Air 08/14/24 15:00 <Rom Correa MD - Last Filed: 08/14/24 18:56> Initial Vital Signs Initial Vital Signs: Vital Signs Temperature 98.5 F 08/14/24 15:00 Pulse Rate 95 H 08/14/24 15:00 Respiratory Rate 16 08/14/24 15:00 Blood Pressure 119/81 08/14/24 15:00 Pulse Oximetry 98 08/14/24 15:00 Oxygen Delivery Method Room Air 08/14/24 15:00 Course <Laurie Neff PA-C - Last Filed: 08/14/24 17:22> Vital Signs Vital signs: Vital Signs - 8 hr 08/14/24 15:00 08/14/24 17:36 Temperature 98.5 F Pulse Rate 95 H 90 Respiratory Rate 16 16 Blood Pressure 119/81 115/81 Pulse Oximetry 98 99 Oxygen Delivery Method Room Air <Rom Correa MD - Last Filed: 08/14/24 18:56> Vital Signs Vital signs: Vital Signs - 8 hr 08/14/24 15:00 08/14/24 17:36 Temperature 98.5 F Pulse Rate 95 H 90 Respiratory Rate 16 16 Blood Pressure 119/81 115/81 Pulse Oximetry 98 99 Oxygen Delivery Method Room Air MDM - Skin/Abscess/Foreign Bdy <Laurie Neff PA-C - Last Filed: 08/14/24 17:22> MDM Narrative Medical decision making narrative: 33-year-old female presents to the ED with 5 days of itchy, truncal rash. Physical exam is most consistent with an atopic rash which is discrete, raised, erythematous, dry, itchy. Prescribed corticosteroid cream, prednisone burst. Recommend follow-up with PCP and Dermatology as soon as possible. Discussed the need for good moisturizing after showers. ED return precautions were discussed with patient. Patient verbalized understanding. Medical records reviewed: Yes Discharge Plan Departure Patient Disposition: Home Clinical Impression: Rash Instructions: DI for Atopic Dermatitis-Adult Activity Restrictions/Additional Instructions: You were seen in the ED today for a rash. It appears that you have an exacerbation of the eczema, possibly due to a new detergent. You are being prescribed prednisone and a steroid ointment. Please continue moisturizing well with CeraVe or Cetaphil cream after a shower. Please follow-up with a floor sanding machine operator and your PCP as soon as possible. Return to the ED if you have worsening symptoms. Prescriptions: New triamcinolone acetonide 0.025 % ointment 1 applic topical BID 14 Days Qty: 454 0RF prednisone 20 mg tablet 40 mg PO DAILY 5 Days Qty: 10 0RF No Action ondansetron 4 mg tablet,disintegrating 4 mg PO TID-QID PRN (Reason: nausea and vomiting) Qty: 10 0RF ondansetron 4 mg tablet,disintegrating 4 mg PO TID-QID PRN (Reason: nausea and vomiting) Qty: 10 0RF Referrals: Renetta Mckeon ARNP [Primary Care Provider] - Stand Alone Forms: Patient Portal/API/Survey ED Sign-out <Rom Correa MD - Last Filed: 08/14/24 18:56> Cosign ED Attending Cosignature Attestation: I was immediately available in the department for consultation. This documentation has been reviewed and I agree with assessment and plan. Supervised by Rom Correa MD
[2024-08-14 17:36] VITALS: BP 115/81; PULSE 90; RESP 16; O2SAT 99
== END 2024-08-14 17:37 | disposition home or self-care (01) ==
PROVIDERS: Emergency Provider Student in an Organized Health Care Education/Training Program; Family Provider Nurse Practitioner Family; PCP Nurse Practitioner Family
DX: R21 Rash and other nonspecific skin eruption (principal)
CPT/HCPCS: 99281

== ENCOUNTER 2024-09-03 13:45 | Emergency (ER) | payer OTHER, SELFPAY ==
[2024-09-03 14:05] VITALS: BP 134/89; PULSE 80; RESP 16; TEMP 36.2; O2SAT 98; BMI 35.3
--- NOTE | 2024-09-03 16:39 | ED_ITS ---
HPI - GI Bleed <Beryl Gallegos PA-C - Last Filed: 09/03/24 17:01> General Chief complaint: GI Bleed Stated complaint: Anal Bleeding Time Seen by Provider: 09/03/24 16:39 Source: patient Mode of arrival: Ambulatory History of Present Illness HPI Narrative: Ms. Farias is a pleasant 33-year-old female with a past medical history of hemorrhoids s/p surgery 1 year ago, ADHD on Adderall who presents to the emergen cy department for rectal bleeding x1 day. Patient reports when she had a bowel movement earlier today there was some bright red blood when she wiped. Patient is concerned about bleeding hemorrhoid. Patient did show me a picture of her anus and toilet bowl which revealed trace bright red blood. She denies abdominal pain, fevers, chills, nausea, vomiting, dysuria. States that she has had increased straining with bowel movements the last week. Related Data Previous Rx's Medication Instructions Recorded ondansetron 4 mg disintegrating 4 mg PO TID-QID PRN nausea and 03/25/23 tablet vomiting #10 tabs ondansetron 4 mg disintegrating 4 mg PO TID-QID PRN nausea and 03/25/23 tablet vomiting #10 tabs phenylephrine 0.25 %-mineral oil 1 applic [place] BID-QID PRN rectal 09/03/24 14 %-petrolatm 74.9 % rectal discomfort #56 grams ointment (Hemorrhoidal(phenyleph-min oil-petrolat)) Allergies Allergy/AdvReac Type Severity Reaction Status Date / Time acetaminophen AdvReac Severe Hives Verified 09/03/24 14:05 diphenhydramine AdvReac Hives Verified 09/03/24 14:05 [From Benadryl] metoclopramide [From Reglan] AdvReac Hives Verified 09/03/24 14:05 Review of Systems <Beryl Gallegos PA-C - Last Filed: 09/03/24 17:01> Review of Systems ROS Unobtainable: All systems reviewed & are unremarkable except as noted in HPI and below Patient History <Beryl Gallegos PA-C - Last Filed: 09/03/24 17:01> Medical History Hemorrhoids Social History Smoking Status: Never smoker Smoking Status: Never smoker alcohol intake frequency: holidays/special occasions only Exam <Beryl Gallegos PA-C - Last Filed: 09/03/24 17:01> Narrative Exam Narrative: GENERAL: 33 year old patient appears stated age. Well-developed patient, in no acute distress. HEAD: Atraumatic. Normocephalic. EYES: Extraocular motions intact. No scleral icterus. No injection or drainage. ENT: Nose without bleeding, purulent drainage. NECK: Trachea midline. Cervical ROM intact. CARDIOVASCULAR: Regular rate RESPIRATORY: ?Nonlabored respirations. ?Speaking in clear, full sentences. ? GASTROINTESTINAL: Abdomen soft, non-tender, nondistended. Patient gave verbal consent for rectal exam. Nurse powder expert present for rectal exam. She has 2 small anal fissures at the 11:00 p.m. position. No visible external or palpable internal hemorrhoids. EXTREMITIES: No edema or joint tenderness. NEURO: AOx3. ?Clear speech. ?Moves all 4 extremities appropriately. Initial Vital Signs Initial Vital Signs: Vital Signs Temperature 97.2 F L 09/03/24 14:05 Pulse Rate 80 09/03/24 14:05 Respiratory Rate 16 09/03/24 14:05 Blood Pressure 134/89 09/03/24 14:05 Pulse Oximetry 98 09/03/24 14:05 Oxygen Delivery Method Room Air 09/03/24 14:05 <Rosalinda Tong DO - Last Filed: 09/03/24 19:36> Initial Vital Signs Initial Vital Signs: Vital Signs Temperature 97.2 F L 09/03/24 14:05 Pulse Rate 80 09/03/24 14:05 Respiratory Rate 16 09/03/24 14:05 Blood Pressure 134/89 09/03/24 14:05 Pulse Oximetry 98 09/03/24 14:05 Oxygen Delivery Method Room Air 09/03/24 14:05 Course <Beryl Gallegos PA-C - Last Filed: 09/03/24 17:01> Vital Signs Vital signs: Vital Signs - 8 hr 09/03/24 14:05 Temperature 97.2 F L Pulse Rate 80 Respiratory Rate 16 Blood Pressure 134/89 Pulse Oximetry 98 Oxygen Delivery Method Room Air <DO Bonnie Powell Last Filed: 09/03/24 19:36> Vital Signs Vital signs: Vital Signs - 8 hr 09/03/24 14:05 Temperature 97.2 F L Pulse Rate 80 Respiratory Rate 16 Blood Pressure 134/89 Pulse Oximetry 98 Oxygen Delivery Method Room Air MDM - GI Bleed <Beryl Gallegos PA-C - Last Filed: 09/03/24 17:01> [facility] Narrative Medical decision making narrative: 33-year-old female with a past medical history of hemorrhoids s/p surgery 1 year ago, ADHD on Adderall who presents to the emergency department for rectal bleeding x1 day. Differential diagnosis includes but is not limited to anal fissure, hemorrhoid, gastroenteritis, diverticulitis, etc. On exam patient is in no acute distress, nontoxic appearing, vital signs within normal limits. Abdomen soft and nontender. Physical exam reveals small anal fissures with no active bleeding. Recommended daily MiraLax to prevent constipation/straining and also prescribed patient preparation H if needed for rectal discomfort. Advised she follow up with her primary care doctor and her GI doctor. Patient verbalizing understanding of all information is stable for discharge home. Discharge Plan Departure Patient Disposition: Home Clinical Impression: Anal fissure Instructions: DI for Anal Fissure Activity Restrictions/Additional Instructions: Today you were evaluated for bloody stool. Your physical exam reveals an anal fissure which is a small cut around the rectum. I have prescribed you a hemorrhoid ointment that you can use if needed for discomfort. Please follow up with your primary care doctor and a GI doctor for further evaluation. If you find that you are straining have a bowel movement. Please take MiraLax daily to prevent constipation. Please follow up with your primary care doctor within the next 2-3 days for ER follow-up. (If you do not have a PCP you can call [phone]. ?to schedule an appointment with an [facility] Primary Care Provider) IF YOU DEVELOP ANY NEW OR WORSENING SYMPTOMS, RETURN TO THE ER! Please read the attached instructions, they highlight more specific treatments and interventions for you at home. Thank you for letting me participate in your care, Beryl Gallegos PA-C Prescriptions: New Hemorrhoidal(PE-min oil-melany) 0.25-14-74.9 % ointment 1 applic [place] BID-QID PRN (Reason: rectal discomfort) Qty: 56 0RF No Action ondansetron 4 mg tablet,disintegrating 4 mg PO TID-QID PRN (Reason: nausea and vomiting) Qty: 10 0RF ondansetron 4 mg tablet,disintegrating 4 mg PO TID-QID PRN (Reason: nausea and vomiting) Qty: 10 0RF Referrals: Renetta Mckeon ARNP [Primary Care Provider] - Stand Alone Forms: Patient Portal/API/Survey ED Sign-out <Rosalinda Tong DO - Last Filed: 09/03/24 19:36> Cosign ED Attending Taran Attestation: I was available for consultation.
--- NOTE | 2024-09-03 16:53 | PC.NURSE ---
Regional Business Development Manager for rectal exam. Small amount fissure noted at 12 o'clok, no obvious external hemorrhoids noted. Patient tolerated retal exam by provider. tace blood with wiping after exam
== END 2024-09-03 17:07 | disposition home or self-care (01) ==
PROVIDERS: Emergency Provider Physician Assistant; Family Provider Nurse Practitioner Family; PCP Nurse Practitioner Family
DX: K60.2 Anal fissure, unspecified (principal)
CPT/HCPCS: 99281

== ENCOUNTER 2024-10-22 23:26 | Emergency (ER) | payer OTHER, SELFPAY ==
[2024-10-22 23:39] VITALS: BP 122/78; PULSE 88; RESP 22; TEMP 37; O2SAT 100; BMI 36.8
--- NOTE | 2024-10-22 23:56 | DI.RAD.S_ITS ---
PROCEDURE: XR CHEST 1V INDICATIONS: chest pain TECHNIQUE: One view of the chest was acquired. COMPARISON: None. FINDINGS: Surgical changes and devices: Surgical clips project over the lower neck. Cervical spinal fixation hardware is present. Right upper quadrant surgical clips. Lungs and pleura: Lungs are clear. No pleural effusions or pneumothorax. Mediastinum: Mediastinal contours appear normal. Heart size is normal. Bones and chest wall: No suspicious bony lesions. Overlying soft tissues appear unremarkable. IMPRESSION: No acute cardiopulmonary abnormality is seen. Approved by: Jay Cavazos M.D. on 10/23/2024 at 0:22
[2024-10-23] VITALS (9 sets, daily range): BP systolic 108–124; BP diastolic 61–81; PULSE 73–86; RESP 16–20; O2SAT 97–100
--- NOTE | 2024-10-23 | EKG_ITS ---
[address] [id number] [address] [address] Test Date: 2024-10-23 Pat Name: Nalini Farias Department: Room: Gender: Female Cash Applications Representative: DAPHNEY MARLI : 1990 Requested By: Order Number: [id number] Reading MD: Anders Starr Measurements Intervals [place] Rate: 83 P: 61 MD: 150 QRS: 44 QRSD: 72 T: 48 QT: 356 QTc: 418 Interpretive Statements Normal sinus rhythm Electronically Signed On 10-24-2024 23:44:51 PST by Anders Starr
--- NOTE | 2024-10-23 00:01 | EKG_ITS ---
[address] [id number] [address] [address] Test Date: 2024-10-23 Pat Name: Nalini Farias Department: Room: Gender: Female Union Contract Representative: DAPHNEY CALLES : 1990 Requested By: Order Number: [id number] Reading MD: Anders Starr Measurements Intervals [place] Rate: 79 P: 63 NM: 160 QRS: 46 QRSD: 72 T: 47 QT: 358 QTc: 410 Interpretive Statements Normal sinus rhythm Electronically Signed On 10-24-2024 23:44:52 PST by Anders Starr
[2024-10-23 00:37] LABS: Add Manual Diff / Slide Review NO; Basophils Absolute Auto 100 /uL (0-100); Basophils Percent Auto 0.9 % (0-2); Eosinophils Absolute Auto 100 /uL (0-450); Eosinophils Percent Auto 0.6 % (2-4); Hematocrit 40.4 % (36-46); Hemoglobin 13.2 g/dL (12.0-16.0); Lymphocytes Absolute Auto 2100 /uL (1100-4500); Lymphocytes Percent Auto 17.2 % (25-40); Mean Corpuscular HGB Conc 32.7 % (30-36); Mean Corpuscular Volume 85.6 fL (80-100); Monocytes Absolute Auto 700 /uL (0-900); Monocytes Percent Auto 5.8 % (3-14); Neutrophils Absolute Auto 9200 /uL (1500-7000); Neutrophils Percent Auto 75.5 % (50-75); Platelet Count 327 X10^3/uL (150-400); Red Blood Cell Count 4.71 X10^6/uL (4.0-5.2); White Blood Cell Count 12.1 X10^3/uL (4.5-11.0)
[2024-10-23 00:44] LABS: INR 0.9 (0.9-1.3); Prothrombin Time 10.1 SECONDS (9.4-12.5)
[2024-10-23 00:47] LABS: PTT Partial Thromboplastin Tim 33 SECONDS (25.1-36.5)
[2024-10-23 00:49] LABS: Alanine Aminotransferase 226 IU/L (<35); Albumin 4.8 g/dL (3.5-5.0); Albumin Globulin Ratio 1.5 (1.0-2.8); Alkaline Phosphatase 115 U/L (38-126); Aspartate Aminotransferase 81 IU/L (14-36); BUN Creatinine Ratio 13.4 (6-22); Bilirubin Total 0.3 mg/dL (0.2-1.3); Blood Urea Nitrogen 9 mg/dL (7-17); Calcium 9.3 mg/dL (8.4-10.2); Carbon Dioxide 25 mmol/L (22-32); Chloride 109 mmol/L (98-107); Creatine Kinase 454 U/L (30-135); Estimated Glomerular Filt Rate > 60 mL/min (>60); Globulin 3.3 g/dL (1.7-4.1); Glucose 92 mg/dL (70-100); HEMOLYSIS 35 (0-50); Lipase 182 U/L (23-300); Magnesium 2.3 mg/dL (1.6-2.3); Potassium 3.8 mmol/L (3.4-5.1); Sodium 143 mmol/L (137-145); Total Protein 8.1 g/dL (6.3-8.2)
[2024-10-23 01:00] LABS: NT-proBNP (BNP-Adult 18+) < 20 pg/mL (<125); Troponin I < 0.012 ng/mL (0.01-0.034)
[2024-10-23 01:09] LABS: Amorphous Sediment Urine 2+; Bacteria Urine None Seen; Culture Indicated Urine Cult Not Indicated; RBC Urine None Seen (0-5/HPF); Squamous Epithelial Cell Urine 0-1 /HPF (0-5/HPF); Urine Volume 10mL (spun); WBC Urine 0-1/HPF (0-5/HPF)
--- NOTE | 2024-10-23 01:40 | PC.NURSE ---
c/o syncopal episodes this afternoon, does admit to increased family stressors, also c/o epigastric pain
--- NOTE | 2024-10-23 02:00 | ED_ITS ---
HPI - Syncope General Chief Complaint: Syncope Stated Complaint: SOB, HBP, numbness and tingling Time Seen by Provider: 10/23/24 01:58 Source: patient Mode of arrival: Ambulatory History of Present Illness HPI narrative: Patient is a 33-year-old female history of cholecystectomy appendectomy, syncope presenting today with epigastric pain nausea vomiting and diarrhea. She has had 2 syncopal episodes today while on toilet. This is not uncommon for her. She has been worked up for syncopal episodes over the last 1 year. She has a ongoing issues with some neuropathy. Today she was unable to get comfortable standing in the room feeling like her epigastric region as twisting she feels nauseous she is dry heaving no vomiting. Denies any fever or chills. No significant chest pain. Mom is with her in the room reports that she passes out frequently. It does happen while she was in the bathroom but also just while standing. She reports she has had an echo, and Holter monitor. No history of bowel obstruction Related Data Previous Rx's Medication Instructions Recorded ondansetron 4 mg disintegrating 4 mg PO TID-QID PRN nausea and 03/25/23 tablet vomiting #10 tabs ondansetron 4 mg disintegrating 4 mg PO TID-QID PRN nausea and 03/25/23 tablet vomiting #10 tabs phenylephrine 0.25 %-mineral oil 1 applic [place] BID-QID PRN rectal 09/03/24 14 %-petrolatm 74.9 % rectal discomfort #56 grams ointment (Hemorrhoidal(phenyleph-min oil-petrolat)) ondansetron 4 mg disintegrating 4 mg PO Q8H PRN nausea and 10/23/24 tablet vomiting #10 tabs Allergies Allergy/AdvReac Type Severity Reaction Status Date / Time acetaminophen AdvReac Severe Hives Verified 09/03/24 14:05 diphenhydramine AdvReac Hives Verified 09/03/24 14:05 [From Benadryl] metoclopramide [From Reglan] AdvReac Hives Verified 09/03/24 14:05 Patient History Medical History Hemorrhoids Social History Smoking Status: Current some day smoker Smoking Status: Current some day smoker alcohol intake frequency: holidays/special occasions only Exam Initial Vital Signs Initial Vital Signs: Vital Signs Temperature 98.6 F 10/22/24 23:39 Pulse Rate 88 10/22/24 23:39 Respiratory Rate 22 10/22/24 23:39 Blood Pressure 122/78 10/22/24 23:39 Pulse Oximetry 100 10/22/24 23:39 Oxygen Delivery Method Room Air 10/22/24 23:39 GENERAL: Alert anxious 33-year-old female appears uncomfortable standing at bedside HEENT: Head atraumatic,EOMI, pupils reactive, face symmetric, moist mucous membranes CARDIOVASCULAR: Regular rate and rhythm without murmurs, rubs or gallops. RESPIRATORY: Breath sounds equal bilaterally, no wheezes rales or rhonchi. ABDOMEN: Soft, epigastric region tender no significant distention no guarding : No significant flank pain EXTREMITIES: Normal range of motion, no clubbing or edema. Neurovascularly intact NEUROLOGICAL: Alert and oriented x4.Normal gait and speech. Cranial nerves II through XII grossly intact. SKIN: Warm, dry, no laceration, no petechiae, no rashes or lesions. Course Orders Ordered: Discontinued Medications Aspirin (Aspirin 81 Mg Chew Tab) 324 mg PO NOW ONE Stop: 10/22/24 23:57 Last Admin: 10/23/24 02:17 Dose: Not Given Documented By: LYN Morphine Sulfate (Morphine 4 Mg/Ml Inj) 4 mg IV NOW ONE Stop: 10/23/24 02:15 Last Admin: 10/23/24 02:20 Dose: 4 mg Documented By: LYN Morphine Sulfate (Morphine 4 Mg/Ml Inj) 4 mg IV NOW ONE Stop: 10/23/24 03:52 Last Admin: 10/23/24 03:55 Dose: 4 mg Documented By: LYN Ondansetron HCl (Ondansetron 4 Mg/2 Ml Inj) 4 mg IV NOW ONE Stop: 10/23/24 02:15 Last Admin: 10/23/24 02:20 Dose: 4 mg Documented By: LYN Vital Signs Vital signs: Vital Signs - 8 hr 10/22/24 23:39 10/23/24 01:31 10/23/24 01:33 Temperature 98.6 F Pulse Rate 88 80 85 Respiratory Rate 22 20 Blood Pressure 122/78 Pulse Oximetry 100 99 99 Oxygen Delivery Method Room Air Room Air 10/23/24 01:33 Temperature Pulse Rate Respiratory Rate Blood Pressure 114/61 Pulse Oximetry Oxygen Delivery Method MDM - Syncope Lab Data 10/23/24 00:26 10/23/24 00:26 Labs: Lab Results 10/23/24 10/23/24 Range/Units 00:26 00:35 WBC 12.1 H (4.5-11.0) X10^3/uL RBC 4.71 (4.0-5.2) X10^6/uL Hgb 13.2 (12.0-16.0) g/dL Hct 40.4 (36-46) % MCV 85.6 (80-100) fL MCH 28.0 (26-34) PG MCHC 32.7 (30-36) % RDW 14.0 (11.6-14.8) % Plt Count 327 (150-400) X10^3/uL Neut % (Auto) 75.5 H (50-75) % Lymph % (Auto) 17.2 L (25-40) % [place] % (Auto) 5.8 (3-14) % Eos % (Auto) 0.6 L (2-4) % Baso % (Auto) 0.9 (0-2) % Neut # (Auto) 9200 H (1758-4925) /uL Lymph # (Auto) 2100 (9398-4020) /uL [place] # (Auto) 700 (0-900) /uL Eos # (Auto) 100 (0-450) /uL Baso # (Auto) 100 (0-100) /uL PT 10.1 (9.4-12.5) SECONDS INR 0.9 (0.9-1.3) APTT 33 (25.1-36.5) SECONDS Sodium 143 (137-145) mmol/L Potassium 3.8 (3.4-5.1) mmol/L Chloride 109 H (98-107) mmol/L Carbon Dioxide 25 (22-32) mmol/L BUN 9 (7-17) mg/dL Creatinine 0.67 (0.52-1.04) mg/dL Estimated GFR > 60 (>60) mL/min BUN/Creatinine Ratio 13.4 (6-22) Glucose 92 (70-100) mg/dL Calcium 9.3 (8.4-10.2) mg/dL Magnesium 2.3 (1.6-2.3) mg/dL Total Bilirubin 0.3 (0.2-1.3) mg/dL AST 81 H (14-36) IU/L ALT 226 H (<35) IU/L Alkaline Phosphatase 115 (38-126) U/L Total Creatine Kinase 454 H (30-135) U/L Troponin I < 0.012 (0.01-0.034) ng/mL NT-Pro-B Natriuret Pep < 20 (<125) pg/mL Total Protein 8.1 (6.3-8.2) g/dL Albumin 4.8 (3.5-5.0) g/dL Globulin 3.3 (1.7-4.1) g/dL Albumin/Globulin Ratio 1.5 (1.0-2.8) Lipase 182 (23-300) U/L Urine RBC None seen (0-5/HPF) Urine WBC 0-1/hpf (0-5/HPF) Ur Squamous Epith Cells 0-1 /hpf (0-5/HPF) Amorphous Sediment 2+ Urine Bacteria None seen (None) Ur Culture Indicated? Cult not indicated Vol Urine Centrifuged 10ml (spun) Point of Care Testing Test Results Negative Urine Dip Bedside Urine Glucose Negative Bedside Urine Bilirubin - Negative Bedside Urine Ketone - Negative Urine Specific [place] 1.020 Bedside Urine Occult Blood - Negative Bedside Urine pH 7.0 Bedside Urine Protein - Negative Bedside Urine Urobilinogen - Negative Bedside Urine Nitrite - Negative Bedside Urine Leukocytes +/- 15 Esterase Imaging Data Chest x-ray: Radiologist's Impression: PROCEDURE: XR CHEST 1V INDICATIONS: chest pain TECHNIQUE: One view of the chest was acquired. COMPARISON: None. FINDINGS: Surgical changes and devices: Surgical clips project over the lower neck. Cervical spinal fixation hardware is present. Right upper quadrant surgical clips. Lungs and pleura: Lungs are clear. No pleural effusions or pneumothorax. Mediastinum: Mediastinal contours appear normal. Heart size is normal. Bones and chest wall: No suspicious bony lesions. Overlying soft tissues appear unremarkable. IMPRESSION: No acute cardiopulmonary abnormality is seen. Approved by: Jay Cavazos M.D. on 10/23/2024 at 0:22 CT scan - abdomen/pelvis: Radiologist's Impression: Preliminary report no evidence of colitis diverticulitis or bowel obstruction. This status post appendectomy no CT findings to explain epigastric pain there is an IUD in place ECG Data Attestation: I personally reviewed and interpreted this ECG as follows: Interpretation: Sinus rhythm rate 83 NC interval 150 QRS [address] changes no T-wave inversions EKG 2. Sinus rhythm rate 79 no acute ischemia or changes from prior MDM Narrative Medical decision making narrative: MDM CC: Abdominal pain nausea vomiting passing out Complicating co-morbidities: Frequent episodes of syncope for over 1 year Medical records reviewed: Previous ED visits reviewed Differential considered: Bowel obstruction anxiety cardiac arrhythmia dehydration pancreatitis Exam documented above, pertinent findings include: Alert 33-year-old female appears uncomfortable pacing in room definitely anxious and hyperventilating Lab Test results independently reviewed as above. Pertinent findings: WBC 12.1 Chemistry panel no electrolyte abnormality no OLEKSANDR bicarb 25 AST 81 ALT 226 bilirubin 0.3 alk-phos 115 lipase 182 Independently reviewed EKG as above Sinus rhythm no ischemia Imaging studies independently reviewed: Chest x-ray no acute cardiopulmonary process CT abdomen no acute abnormality Treatments: Zofran morphine Re-evaluations: Patient is feeling a bit better. Suspect that she had vasovagal reaction while on the toilet having a bowel movement. She has had multiple syncopal episodes. Not significantly dehydrated on blood work. Discussion: 33-year-old female presenting today with epigastric pain and multiple syncopal episodes. The syncopal episodes are not new they has been worked before. She overall is very anxious appears uncomfortable. Blood work is overall reassuring she was some mild leukocytosis without evidence of infection. CT does not show any evidence of bowel obstruction or cause of abdominal pain. She was feeling better after morphine and Zofran Discharge Plan Departure Patient Disposition: Home Clinical Impression: Abdominal pain Instructions: DI for Abdominal Pain-Adult Activity Restrictions/Additional Instructions: *You have been diagnosed with abdominal pain *What to do: At this time there is no evidence of a obstruction. Unclear what is causing your pain. You may need to follow up with GI in your primary care provider in regards to further workup *Continue to take medications as directed Zofran 4 mg every 8 hours for nausea or vomiting *Follow up with your primary care provider in 2-3 days or call [phone] *Return to ER if you should have increasing pain persistent vomiting [or] any new, worsening or concerning symptoms Prescriptions: New ondansetron 4 mg tablet,disintegrating 4 mg PO Q8H PRN (Reason: nausea and vomiting) Qty: 10 0RF No Action ondansetron 4 mg tablet,disintegrating 4 mg PO TID-QID PRN (Reason: nausea and vomiting) Qty: 10 0RF ondansetron 4 mg tablet,disintegrating 4 mg PO TID-QID PRN (Reason: nausea and vomiting) Qty: 10 0RF Hemorrhoidal(PE-min oil-melany) 0.25-14-74.9 % ointment 1 applic [place] BID-QID PRN (Reason: rectal discomfort) Qty: 56 0RF Referrals: Renetta Mckeon ARNP [Primary Care Provider] - Stand Alone Forms: Patient Portal/API/Survey
--- NOTE | 2024-10-23 02:16 | DI.CT.S_ITS ---
PROCEDURE: CT ABDOMEN PELVIS W CON INDICATIONS: epigastric pain, nausea, hx halle and appy TECHNIQUE: After the administration of intravenous contrast, axial sections acquired from the lung bases to the pubic symphysis. Coronal and sagittal reformats were performed. For radiation dose reduction, the following was used: automated exposure control, adjustment of mA and/or kV according to patient size. COMPARISON: None. FINDINGS: Image quality: Diagnosed Lower chest: Unremarkable lung bases. Normal heart size Liver: Small granuloma in segment 7 Gallbladder and biliary system: Minimally ectatic biliary system likely due to post cholecystectomy state Pancreas: No ductal dilation Spleen: Nonenlarged Adrenals: No discrete nodules Kidneys: No solid mass. No hydronephrosis. Vessels and lymph nodes: The main portal vein is patent. No abdominal aortic aneurysm. No pathologic lymphadenopathy by size criteria. Bowel and peritoneum: No evidence of small bowel obstruction. No pathologic ascites. The appendix was not seen. Body wall: Unremarkable. Pelvis: IUD is in place. Bladder is under distended. Adnexal structures are unremarkable on limited CT evaluation Bones: There are degenerative changes. IMPRESSION: No acute abdominal pelvic abnormality. Incidental and likely nonacute findings are described above. No significant discrepancy from the preliminary report. Dictated by: Chaim Mathew M.D. on 10/23/2024 at 8:21 Approved by: Cahim Mathew M.D. on 10/23/2024 at 8:53
[2024-10-23] MEDS: MORPHINE 4 MG/ML INJ IV ×2 (02:20→03:55)
[2024-10-23] MEDS: ONDANSETRON 4 MG/2 ML INJ IV (02:20)
--- NOTE | 2024-10-23 02:38 | PC.NURSE ---
Pt taken to imaging via ED stretcher with magnetic testing technician
--- NOTE | 2024-10-29 12:42 | PC.NURSE ---
Pt returned phone call to ED about test results. RN notified pt of results and to follow up with her PCP. Pt gave verbal understanding.
== END 2024-10-23 04:09 | disposition home or self-care (01) ==
PROVIDERS: Emergency Provider Emergency Medicine; Family Provider Nurse Practitioner Family; PCP Nurse Practitioner Family
DX: R10.13 Epigastric pain (principal); R07.9 Chest pain, unspecified; R55 Syncope and collapse; R11.2 Nausea with vomiting, unspecified; R19.7 Diarrhea, unspecified; F17.210 Nicotine dependence, cigarettes, uncomplicated
CPT/HCPCS: 71045; 74177; 80053; 81003; 81015; 81025; 82550; 83690; 83735; 83880; 84484; 85025; 85610; 85730; 93005; 96374; 96375; 96376; 99284; J2270; J2405; Q9967

== ENCOUNTER 2024-10-23 16:48 | Emergency (ER) | payer OTHER, SELFPAY ==
[2024-10-23] VITALS (19 sets, daily range): BP systolic 99–126; BP diastolic 56–84; PULSE 89–127; RESP 14–24; TEMP 36.8; O2SAT 96–100; BMI 36.8
--- NOTE | 2024-10-23 17:24 | ED.NAVMDI ---
HPI - Nausea/Vomiting/Diarrhea <Corwin Portillo MD - Last Filed: 10/26/24 20:50> General Chief complaint: Nausea/Vomiting/Diarrhea Stated complaint: Cold/Flu N/V Time Seen by Provider: 10/23/24 17:15 Source: patient and EMS Mode of arrival: EMS History of Present Illness HPI Narrative: Patient brought in by ambulance from home. Patient just discharged earlier this morning around 4:00 a.m.. Patient here for the same complaint abdominal pain nausea and vomiting. She has been under lot of stress in her personal life. Never had EGD endoscopy of the stomach. Patient has had syncopal episodes which are not new. Please see note below from ER visit earlier this morning. Patient has history of IUD. Denies does not want a test. She states she has not sexually active. 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 Patient had CT abdomen pelvis with no acute finding. Chest x-ray as well. Laboratory studies were reassuring as well overnight. Chief Complaint: Syncope Stated Complaint: SOB, HBP, numbness and tingling Time Seen by Provider: 10/23/24 01:58 Source: patient Mode of arrival: Ambulatory History of Present Illness HPI narrative: Patient is a 33-year-old female history of cholecystectomy appendectomy, syncope presenting today with epigastric pain nausea vomiting and diarrhea. She has had 2 syncopal episodes today while on toilet. This is not uncommon for her. She has been worked up for syncopal episodes over the last 1 year. She has a ongoing issues with some neuropathy. Today she was unable to get comfortable standing in the room feeling like her epigastric region as twisting she feels nauseous she is dry heaving no vomiting. Denies any fever or chills. No significant chest pain. Mom is with her in the room reports that she passes out frequently. It does happen while she was in the bathroom but also just while standing. She reports she has had an echo, and Holter monitor. No history of bowel obstruction Related Data Previous Rx's Medication Instructions Recorded ondansetron 4 mg disintegrating 4 mg PO TID-QID PRN nausea and 03/25/23 tablet vomiting #10 tabs ondansetron 4 mg disintegrating 4 mg PO TID-QID PRN nausea and 03/25/23 tablet vomiting #10 tabs phenylephrine 0.25 %-mineral oil 1 applic OK BID-QID PRN rectal 09/03/24 14 %-petrolatm 74.9 % rectal discomfort #56 grams ointment (Hemorrhoidal(phenyleph-min oil-petrolat)) ondansetron 4 mg disintegrating 4 mg PO Q8H PRN nausea and 10/23/24 tablet vomiting #10 tabs promethazine 25 mg tablet 25 mg PO Q4-6H PRN nausea and 10/23/24 vomiting #10 tabs Allergies Allergy/AdvReac Type Severity Reaction Status Date / Time acetaminophen AdvReac Severe Hives Verified 09/03/24 14:05 diphenhydramine AdvReac Hives Verified 09/03/24 14:05 [From Benadryl] metoclopramide [From Reglan] AdvReac Hives Verified 09/03/24 14:05 Review of Systems <Corwin Portillo MD - Last Filed: 10/26/24 20:50> Review of Systems Narrative: GENERAL: Negative chills, fatigue, malaise, fever, sweats. HEENT: Negative sinus pain, ear pain, sore throat RESPIRATORY: Negative dyspnea, cough CARDIOVASCULAR: Negative chest pain, palpitations GASTROINTESTINAL: Positive nausea, vomiting, abdominal pain : Negative dysuria, frequency, hematuria MUSCULOSKELETAL: Negative muscle or bony pain SKIN: Negative rash, skin lesions NEUROLOGIC: Negative weakness, numbness ROS Unobtainable: All systems reviewed & are unremarkable except as noted in HPI and below Patient History <Corwin Portillo MD - Last Filed: 10/26/24 20:50> Medical History Hemorrhoids Social History Smoking Status: Current some day smoker Smoking Status: Current some day smoker alcohol intake frequency: holidays/special occasions only Exam <Corwin Portillo MD - Last Filed: 10/26/24 20:50> Narrative Exam Narrative: GENERAL: in no distress, not toxic not dyspneic HEAD: Normocephalic. EYES: Pupils equal round ENT: Mucous membranes moist. NECK: Trachea midline. CARDIOVASCULAR: Regular rate and rhythm RESPIRATORY: Clear to auscultation. Breath sounds equal bilaterally. No wheezes, rales, or rhonchi. GASTROINTESTINAL: Abdomen soft, reproducible epigastric tenderness, no peritoneal signs no guarding no rebound. No pain out of portion exam BACK: No flank tenderness. NEURO: AOx4. SKIN: Warm and dry PSYCH: Not anxious, is cooperative Initial Vital Signs Initial Vital Signs: Vital Signs Temperature 98.3 F 10/23/24 16:50 Pulse Rate 93 H 10/23/24 16:50 Respiratory Rate 16 10/23/24 16:50 Blood Pressure 110/84 10/23/24 16:50 Pulse Oximetry 100 10/23/24 16:50 Oxygen Delivery Method Room Air 10/23/24 16:50 <Rosalinda Tong DO - Last Filed: 10/23/24 23:49> Initial Vital Signs Initial Vital Signs: Vital Signs Temperature 98.3 F 10/23/24 16:50 Pulse Rate 93 H 10/23/24 16:50 Respiratory Rate 16 10/23/24 16:50 Blood Pressure 110/84 10/23/24 16:50 Pulse Oximetry 100 10/23/24 16:50 Oxygen Delivery Method Room Air 10/23/24 16:50 Course <Corwin Portillo MD - Last Filed: 10/26/24 20:50> Orders Ordered: Discontinued Medications Hydromorphone HCl (Hydromorphone 1 Mg Inj) 1 mg IV NOW ONE Stop: 10/23/24 19:06 Last Admin: 10/23/24 19:10 Dose: 1 mg Documented By: TIFFANIE Sodium Chloride (Normal Saline 0.9%) 1,000 mls @ 1,000 mls/hr IV BOLUS ONE Stop: 10/23/24 18:22 Last Infusion: 10/23/24 18:52 Dose: Infused Documented By: Admin: 10/23/24 17:54 Dose: 1,000 mls/hr Documented By: TIFFANIE Sodium Chloride (Normal Saline 0.9%) 1,000 mls @ 1,000 mls/hr IV BOLUS ONE Stop: 10/23/24 20:08 Last Infusion: 10/23/24 20:11 Dose: Infused Documented By: Admin: 10/23/24 19:11 Dose: 1,000 mls/hr Documented By: TIFFANIE Morphine Sulfate (Morphine 4 Mg/Ml Inj) 4 mg IV NOW ONE Stop: 10/23/24 17:24 Last Admin: 10/23/24 17:55 Dose: 4 mg Documented By: TIFFANIE Pantoprazole Sodium (Pantoprazole 40 Mg Vial) 40 mg IV NOW ONE Stop: 10/23/24 17:28 Last Admin: 10/23/24 17:55 Dose: 40 mg Documented By: TIFFANIE Prochlorperazine (Prochlorperazine 10 Mg/2 Ml Vial) 10 mg IV NOW ONE Stop: 10/23/24 17:24 Last Admin: 10/23/24 17:55 Dose: 10 mg Documented By: TIFFANIE Vital Signs Vital signs: Vital Signs - 8 hr 10/23/24 16:50 10/23/24 16:54 10/23/24 16:55 Temperature 98.3 F Pulse Rate 93 H 91 H 91 H Respiratory Rate 16 Blood Pressure 110/84 Pulse Oximetry 100 100 100 Oxygen Delivery Method Room Air 10/23/24 16:55 10/23/24 17:00 10/23/24 17:30 Temperature Pulse Rate 97 H 119 H Respiratory Rate Blood Pressure 110/84 Pulse Oximetry 99 99 Oxygen Delivery Method 10/23/24 17:55 10/23/24 17:59 10/23/24 17:59 Temperature Pulse Rate 93 H 89 Respiratory Rate Blood Pressure 110/84 111/66 Pulse Oximetry 100 Oxygen Delivery Method 10/23/24 18:00 10/23/24 18:00 10/23/24 18:30 Temperature Pulse Rate 90 Respiratory Rate Blood Pressure 99/56 L 118/71 Pulse Oximetry 98 Oxygen Delivery Method 10/23/24 18:30 10/23/24 19:00 10/23/24 19:00 Temperature Pulse Rate 112 H 110 H Respiratory Rate 18 Blood Pressure 118/68 Pulse Oximetry 99 97 Oxygen Delivery Method 10/23/24 19:30 10/23/24 19:30 10/23/24 20:00 Temperature Pulse Rate 115 H 121 H Respiratory Rate 21 24 Blood Pressure 105/65 Pulse Oximetry 98 99 Oxygen Delivery Method 10/23/24 20:00 10/23/24 20:24 10/23/24 20:24 Temperature Pulse Rate 127 H Respiratory Rate 18 Blood Pressure 107/66 124/83 Pulse Oximetry 98 Oxygen Delivery Method 10/23/24 20:30 10/23/24 20:30 10/23/24 21:00 Temperature Pulse Rate 119 H Respiratory Rate 24 Blood Pressure 120/68 125/72 Pulse Oximetry 96 Oxygen Delivery Method 10/23/24 21:00 10/23/24 21:30 10/23/24 21:30 Temperature Pulse Rate 114 H 113 H Respiratory Rate 23 14 Blood Pressure 126/77 Pulse Oximetry 97 97 Oxygen Delivery Method 10/23/24 22:00 10/23/24 22:30 10/23/24 22:32 Temperature Pulse Rate 101 H 105 H Respiratory Rate 20 23 Blood Pressure 123/76 Pulse Oximetry 98 97 Oxygen Delivery Method 10/23/24 22:32 Temperature Pulse Rate 106 H Respiratory Rate 21 Blood Pressure Pulse Oximetry 97 Oxygen Delivery Method <Rosalinda Tong DO - Last Filed: 10/23/24 23:49> Orders Ordered: Discontinued Medications Hydromorphone HCl (Hydromorphone 1 Mg Inj) 1 mg IV NOW ONE Stop: 10/23/24 19:06 Last Admin: 10/23/24 19:10 Dose: 1 mg Documented By: TIFFANIE Sodium Chloride (Normal Saline 0.9%) 1,000 mls @ 1,000 mls/hr IV BOLUS ONE Stop: 10/23/24 18:22 Last Infusion: 10/23/24 18:52 Dose: Infused Documented By: Admin: 10/23/24 17:54 Dose: 1,000 mls/hr Documented By: TIFFANIE Sodium Chloride (Normal Saline 0.9%) 1,000 mls @ 1,000 mls/hr IV BOLUS ONE Stop: 10/23/24 20:08 Last Infusion: 10/23/24 20:11 Dose: Infused Documented By: Admin: 10/23/24 19:11 Dose: 1,000 mls/hr Documented By: TIFFANIE Morphine Sulfate (Morphine 4 Mg/Ml Inj) 4 mg IV NOW ONE Stop: 10/23/24 17:24 Last Admin: 10/23/24 17:55 Dose: 4 mg Documented By: TIFFANIE Pantoprazole Sodium (Pantoprazole 40 Mg Vial) 40 mg IV NOW ONE Stop: 10/23/24 17:28 Last Admin: 10/23/24 17:55 Dose: 40 mg Documented By: TIFFANIE Prochlorperazine (Prochlorperazine 10 Mg/2 Ml Vial) 10 mg IV NOW ONE Stop: 10/23/24 17:24 Last Admin: 10/23/24 17:55 Dose: 10 mg Documented By: TIFFANIE Vital Signs Vital signs: Vital Signs - 8 hr 10/23/24 16:50 10/23/24 16:54 10/23/24 16:55 Temperature 98.3 F Pulse Rate 93 H 91 H 91 H Respiratory Rate 16 Blood Pressure 110/84 Pulse Oximetry 100 100 100 Oxygen Delivery Method Room Air 10/23/24 16:55 10/23/24 17:00 10/23/24 17:30 Temperature Pulse Rate 97 H 119 H Respiratory Rate Blood Pressure 110/84 Pulse Oximetry 99 99 Oxygen Delivery Method 10/23/24 17:55 10/23/24 17:59 10/23/24 17:59 Temperature Pulse Rate 93 H 89 Respiratory Rate Blood Pressure 110/84 111/66 Pulse Oximetry 100 Oxygen Delivery Method 10/23/24 18:00 10/23/24 18:00 10/23/24 18:30 Temperature Pulse Rate 90 Respiratory Rate Blood Pressure 99/56 L 118/71 Pulse Oximetry 98 Oxygen Delivery Method 10/23/24 18:30 10/23/24 19:00 10/23/24 19:00 Temperature Pulse Rate 112 H 110 H Respiratory Rate 18 Blood Pressure 118/68 Pulse Oximetry 99 97 Oxygen Delivery Method 10/23/24 19:30 10/23/24 19:30 10/23/24 20:00 Temperature Pulse Rate 115 H 121 H Respiratory Rate 21 24 Blood Pressure 105/65 Pulse Oximetry 98 99 Oxygen Delivery Method 10/23/24 20:00 10/23/24 20:24 10/23/24 20:24 Temperature Pulse Rate 127 H Respiratory Rate 18 Blood Pressure 107/66 124/83 Pulse Oximetry 98 Oxygen Delivery Method 10/23/24 20:30 10/23/24 20:30 10/23/24 21:00 Temperature Pulse Rate 119 H Respiratory Rate 24 Blood Pressure 120/68 125/72 Pulse Oximetry 96 Oxygen Delivery Method 10/23/24 21:00 10/23/24 21:30 10/23/24 21:30 Temperature Pulse Rate 114 H 113 H Respiratory Rate 23 14 Blood Pressure 126/77 Pulse Oximetry 97 97 Oxygen Delivery Method 10/23/24 22:00 10/23/24 22:30 10/23/24 22:32 Temperature Pulse Rate 101 H 105 H Respiratory Rate 20 23 Blood Pressure 123/76 Pulse Oximetry 98 97 Oxygen Delivery Method 10/23/24 22:32 Temperature Pulse Rate 106 H Respiratory Rate 21 Blood Pressure Pulse Oximetry 97 Oxygen Delivery Method MDM - Nausea/Vomiting/Diarrhea <Corwin Portillo MD - Last Filed: 10/26/24 20:50> Lab Data 10/23/24 17:39 10/23/24 17:39 Labs: Lab Results 10/23/24 10/23/24 Range/Units 17:39 19:25 WBC 9.9 (4.5-11.0) X10^3/uL RBC 4.82 (4.0-5.2) X10^6/uL Hgb 13.6 (12.0-16.0) g/dL Hct 41.2 (36-46) % MCV 85.6 (80-100) fL MCH 28.1 (26-34) PG MCHC 32.9 (30-36) % RDW 13.9 (11.6-14.8) % Plt Count 350 (150-400) X10^3/uL Neut % (Auto) 74.1 (50-75) % Lymph % (Auto) 19.5 L (25-40) % [place] % (Auto) 5.8 (3-14) % Eos % (Auto) 0.2 L (2-4) % Baso % (Auto) 0.4 (0-2) % Neut # (Auto) 7300 H (0353-8062) /uL Lymph # (Auto) 1900 (1972-0386) /uL [place] # (Auto) 600 (0-900) /uL Eos # (Auto) 0 (0-450) /uL Baso # (Auto) 0 (0-100) /uL D-Dimer 447 (<500) ng/ml Sodium 139 (137-145) mmol/L Potassium 3.7 (3.4-5.1) mmol/L Chloride 107 (98-107) mmol/L Carbon Dioxide 22 (22-32) mmol/L BUN 6 L (7-17) mg/dL Creatinine 0.74 (0.52-1.04) mg/dL Estimated GFR > 60 (>60) mL/min BUN/Creatinine Ratio 8.1 (6-22) Glucose 121 H (70-100) mg/dL Lactate 0.9 (0.7-2.1) mmol/L Calcium 9.3 (8.4-10.2) mg/dL Total Bilirubin 0.8 (0.2-1.3) mg/dL AST 228 H (14-36) IU/L ALT 351 H (<35) IU/L Alkaline Phosphatase 181 H D (38-126) U/L Total Protein 8.3 H (6.3-8.2) g/dL Albumin 4.9 (3.5-5.0) g/dL Globulin 3.4 (1.7-4.1) g/dL Albumin/Globulin Ratio 1.4 (1.0-2.8) Lipase 83 D (23-300) U/L Acetaminophen < 10 (10-30) ug/mL Ethyl Alcohol < 10 ( - 10) mg/dL Hepatitis A IgM Ab Negative (Negative) Hep Bs Antigen Negative (Negative) Hep B Core IgM Ab Negative (Negative) Hepatitis C Antibody Non reactive (Non Reactive) Hep C Ab Signal/Cutoff Comment (.) [facility] Narrative Medical decision making narrative: Patient brought in by ambulance from home. Patient just discharged earlier this morning around 4:00 a.m.. Patient here for the same complaint abdominal pain nausea and vomiting. She has been under lot of stress in her personal life. Never had EGD endoscopy of the stomach. Patient has had syncopal episodes which are not new. Please see note below from ER visit earlier this morning. Patient has history of IUD. Denies does not want a test. She states she has not sexually active. 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 Patient had CT abdomen pelvis with no acute finding. Chest x-ray as well. Laboratory studies were reassuring as well overnight. After history and exam CBC CMP lipase Compazine morphine normal saline, Protonix no repeat imaging indicated at this time. Patient just had CT imaging less than 24 hours ago. [facility] Medical records reviewed: ER visit last night Differential considered: Includes but not limited to anxiety gastritis pancreatitis, GERD, gastroparesis Lab Test results independently reviewed as above. Pertinent findings: See chart Treatments: Morphine Compazine normal saline Re-evaluations: See notes below Discussion: See notes below Diagnosis: Elevated liver enzymes, gastroenteritis 6:00 p.m.: Lindsey: Sign out to Dr Tong, laboratory studies are pending. Medications have been provided. Patient will need reassessment 1899 Dr. Tong-patient signed out to me by Dr. Portillo I have seen evaluated patient myself. Familiar to me I saw her last night. Reports that she went home continued to have nausea vomiting right upper order pain she continued to pass out. Blood work reviewed she actually does not have leukocytosis anymore she has a WBC of 9.9. Liver enzymes are more elevated now AST is 228 ALT 351 alk-phos 181 with a normal bilirubin of 0.8 and lipase 83. She continues to have right upper quadrant pain get an morphine Dilaudid Protonix Compazine and fluids. CT scan from early this morning did not show any significant abnormality. Ultrasound done today again does not show any significant abnormality. Unclear significance elevation of liver enzymes. Alcohol Tylenol and hepatitis panel added. Those are negative hepatitis panel still pending Ultrasound does not show any abnormalities Patient tolerating p.o. fluids Ambulation trial she was able to ambulate to the restroom but felt like her legs were shaky and ultimately needed a wheelchair to get back to her room D-dimer was ordered for syncope and tachycardia it was less than 500 she was not hypoxic. At this time discussed with her if she feels like her anxiety depression is worse slightly which he says yes. She does feel like she was able to go home with different anti nausea medication. Unclear explanation why liver enzymes are elevated she would CT and ultrasound which do not show any abnormality. She reports that she does not take any Tylenol that she was allergic to it and her Tylenol level is negative. 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 She does have nausea vomiting diarrhea hepatitis panel pending this maybe possible. At this time supportive care only <Rosalinda Tong, DO - Last Filed: 10/23/24 23:49> Lab Data Labs: Lab Results 10/23/24 10/23/24 Range/Units 17:39 19:25 WBC 9.9 (4.5-11.0) X10^3/uL RBC 4.82 (4.0-5.2) X10^6/uL Hgb 13.6 (12.0-16.0) g/dL Hct 41.2 (36-46) % MCV 85.6 (80-100) fL MCH 28.1 (26-34) PG MCHC 32.9 (30-36) % RDW 13.9 (11.6-14.8) % Plt Count 350 (150-400) X10^3/uL Neut % (Auto) 74.1 (50-75) % Lymph % (Auto) 19.5 L (25-40) % [place] % (Auto) 5.8 (3-14) % Eos % (Auto) 0.2 L (2-4) % Baso % (Auto) 0.4 (0-2) % Neut # (Auto) 7300 H (2027-4812) /uL Lymph # (Auto) 1900 (5088-6903) /uL [place] # (Auto) 600 (0-900) /uL Eos # (Auto) 0 (0-450) /uL Baso # (Auto) 0 (0-100) /uL D-Dimer 447 (<500) ng/ml Sodium 139 (137-145) mmol/L Potassium 3.7 (3.4-5.1) mmol/L Chloride 107 (98-107) mmol/L Carbon Dioxide 22 (22-32) mmol/L BUN 6 L (7-17) mg/dL Creatinine 0.74 (0.52-1.04) mg/dL Estimated GFR > 60 (>60) mL/min BUN/Creatinine Ratio 8.1 (6-22) Glucose 121 H (70-100) mg/dL Lactate 0.9 (0.7-2.1) mmol/L Calcium 9.3 (8.4-10.2) mg/dL Total Bilirubin 0.8 (0.2-1.3) mg/dL AST 228 H (14-36) IU/L ALT 351 H (<35) IU/L Alkaline Phosphatase 181 H D (38-126) U/L Total Protein 8.3 H (6.3-8.2) g/dL Albumin 4.9 (3.5-5.0) g/dL Globulin 3.4 (1.7-4.1) g/dL Albumin/Globulin Ratio 1.4 (1.0-2.8) Lipase 83 D (23-300) U/L Acetaminophen < 10 (10-30) ug/mL Ethyl Alcohol < 10 ( - 10) mg/dL Hepatitis A IgM Ab Negative (Negative) Hep Bs Antigen Negative (Negative) Hep B Core IgM Ab Negative (Negative) Hepatitis C Antibody Non reactive (Non Reactive) Hep C Ab Signal/Cutoff Comment (.) Imaging Data US - abdomen: Radiologist's Impression: PROCEDURE: US ABDOMEN LIMITED INDICATIONS: ruq TECHNIQUE: Real-time scanning was performed of the abdominal and retroperitoneal organs, with image documentation. COMPARISON: [facility], CT, CT ABDOMEN PELVIS W CON, 10/23/2024, 2:31. FINDINGS: Liver: Liver is normal in size and homogeneous in echotexture. Normal hepatopetal flow is seen in patent main portal vein. Gallbladder: Gallbladder is surgically absent. Biliary ducts: Intrahepatic bile ducts are non-dilated. Extrahepatic bile duct caliber measures 7.5 mm. Normal is 6-7 mm or less in diameter, or 10 mm or less post-cholecystectomy. Pancreas: Pancreas is not visualized due to overlying bowel gas. Miscellaneous: No free abdominal fluid. IMPRESSION: Unremarkable ultrasound examination of right upper quadrant abdomen. Dictated by: Delroy Ely M.D. on 10/23/2024 at 19:39 ECG Data Attestation: I personally reviewed and interpreted this ECG as follows: Prior ECG tracings: available for review Interpretation: Normal sinus rhythm rate 95 OK interval 166 QRS 76 QTC [address] changes no arrhythmia similar to prior [facility] Narrative Medical decision making narrative: Patient brought in by ambulance from home. Patient just discharged earlier this morning around 4:00 a.m.. Patient here for the same complaint abdominal pain nausea and vomiting. She has been under lot of stress in her personal life. Never had EGD endoscopy of the stomach. Patient has had syncopal episodes which are not new. Please see note below from ER visit earlier this morning. Patient has history of IUD. Denies does not want a test. She states she has not sexually active. 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 Patient had CT abdomen pelvis with no acute finding. Chest x-ray as well. Laboratory studies were reassuring as well overnight. After history and exam CBC CMP lipase Compazine morphine normal saline, Protonix no repeat imaging indicated at this time. Patient just had CT imaging less than 24 hours ago. [facility] Medical records reviewed: ER visit last night Differential considered: Includes but not limited to anxiety gastritis pancreatitis, GERD, gastroparesis Lab Test results independently reviewed as above. Pertinent findings: Consultations: Treatments: Morphine Compazine normal saline Re-evaluations: Discussion: Diagnosis: 6:00 p.m.: Lindsey: Sign out to Dr Tong, laboratory studies are pending. Medications have been provided. Patient will need reassessment 1899 Dr. Tong-patient signed out to me by Dr. Portillo I have seen evaluated patient myself. Familiar to me I saw her last night. Reports that she went home continued to have nausea vomiting right upper order pain she continued to pass out. Blood work reviewed she actually does not have leukocytosis anymore she has a WBC of 9.9. Liver enzymes are more elevated now AST is 228 ALT 351 alk-phos 181 with a normal bilirubin of 0.8 and lipase 83. She continues to have right upper quadrant pain get an morphine Dilaudid Protonix Compazine and fluids. CT scan from early this morning did not show any significant abnormality. Ultrasound done today again does not show any significant abnormality. Unclear significance elevation of liver enzymes. Alcohol Tylenol and hepatitis panel added. Those are negative hepatitis panel still pending Ultrasound does not show any abnormalities Patient tolerating p.o. fluids Ambulation trial she was able to ambulate to the restroom but felt like her legs were shaky and ultimately needed a wheelchair to get back to her room D-dimer was ordered for syncope and tachycardia it was less than 500 she was not hypoxic. At this time discussed with her if she feels like her anxiety depression is worse slightly which he says yes. She does feel like she was able to go home with different anti nausea medication. Unclear explanation why liver enzymes are elevated she would CT and ultrasound which do not show any abnormality. She reports that she does not take any Tylenol that she was allergic to it and her Tylenol level is negative. 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 She does have nausea vomiting diarrhea hepatitis panel pending this maybe possible. At this time supportive care only Discharge Plan Departure Patient Disposition: Home Clinical Impression: Gastroenteritis, Elevated liver enzymes Instructions: DI for Viral Gastroenteritis -- Adult Activity Restrictions/Additional Instructions: *You have been diagnosed with nausea vomiting elevated liver enzyme *What to do: At this time you may need your liver enzymes rechecked later this week or next week with your primary care provider. Increase fluids as tolerated *Continue to take medications as directed Phenergan 25 mg every 6 hours for nausea or vomiting *Follow up with your primary care provider in 2-3 days or call [phone] *Return to ER if you should have persistent vomiting increased pain [or] any new, worsening or concerning symptoms Prescriptions: New promethazine 25 mg tablet 25 mg PO Q4-6H PRN (Reason: nausea and vomiting) Qty: 10 0RF No Action ondansetron 4 mg tablet,disintegrating 4 mg PO TID-QID PRN (Reason: nausea and vomiting) Qty: 10 0RF ondansetron 4 mg tablet,disintegrating 4 mg PO TID-QID PRN (Reason: nausea and vomiting) Qty: 10 0RF ondansetron 4 mg tablet,disintegrating 4 mg PO Q8H PRN (Reason: nausea and vomiting) Qty: 10 0RF Hemorrhoidal(PE-min oil-melany) 0.25-14-74.9 % ointment 1 applic OK BID-QID PRN (Reason: rectal discomfort) Qty: 56 0RF Referrals: Renetta Mckeon ARNP [Primary Care Provider] - Stand Alone Forms: Patient Portal/API/Survey
[2024-10-23 17:47] LABS: Add Manual Diff / Slide Review NO; Basophils Absolute Auto 0 /uL (0-100); Basophils Percent Auto 0.4 % (0-2); Eosinophils Absolute Auto 0 /uL (0-450); Eosinophils Percent Auto 0.2 % (2-4); Hematocrit 41.2 % (36-46); Hemoglobin 13.6 g/dL (12.0-16.0); Lymphocytes Absolute Auto 1900 /uL (1100-4500); Lymphocytes Percent Auto 19.5 % (25-40); Mean Corpuscular HGB Conc 32.9 % (30-36); Mean Corpuscular Hemoglobin 28.1 PG (26-34); Mean Corpuscular Volume 85.6 fL (80-100); Monocytes Absolute Auto 600 /uL (0-900); Monocytes Percent Auto 5.8 % (3-14); Neutrophils Absolute Auto 7300 /uL (1500-7000); Neutrophils Percent Auto 74.1 % (50-75); Platelet Count 350 X10^3/uL (150-400); Red Blood Cell Count 4.82 X10^6/uL (4.0-5.2); Red Cell Distribution Width 13.9 % (11.6-14.8); White Blood Cell Count 9.9 X10^3/uL (4.5-11.0)
[2024-10-23] MEDS: SODIUM CHLORIDE 0.9% 1,000 ML 1000 ML IV ×2 (17:54→19:11)
[2024-10-23] MEDS: PROCHLORPERAZINE 10 MG/2 ML VIAL IV (17:55)
[2024-10-23] MEDS: PANTOPRAZOLE 40 MG VIAL IV (17:55)
[2024-10-23] MEDS: MORPHINE 4 MG/ML INJ IV (17:55)
[2024-10-23 17:58] LABS: Alanine Aminotransferase 351 IU/L (<35); Albumin 4.9 g/dL (3.5-5.0); Albumin Globulin Ratio 1.4 (1.0-2.8); Alkaline Phosphatase 181 U/L (38-126); Aspartate Aminotransferase 228 IU/L (14-36); BUN Creatinine Ratio 8.1 (6-22); Bilirubin Total 0.8 mg/dL (0.2-1.3); Blood Urea Nitrogen 6 mg/dL (7-17); Calcium 9.3 mg/dL (8.4-10.2); Carbon Dioxide 22 mmol/L (22-32); Chloride 107 mmol/L (98-107); Estimated Glomerular Filt Rate > 60 mL/min (>60); Globulin 3.4 g/dL (1.7-4.1); Glucose 121 mg/dL (70-100); HEMOLYSIS < 15 (0-50); Lipase 83 U/L (23-300); Potassium 3.7 mmol/L (3.4-5.1); Sodium 139 mmol/L (137-145); Total Protein 8.3 g/dL (6.3-8.2)
[2024-10-23 18:31] LABS: Acetaminophen < 10 ug/mL (10-30); Ethanol (ETOH) < 10 mg/dL
--- NOTE | 2024-10-23 19:05 | DI.US.S_ITS ---
PROCEDURE: US ABDOMEN LIMITED INDICATIONS: ruq TECHNIQUE: Real-time scanning was performed of the abdominal and retroperitoneal organs, with image documentation. COMPARISON: [facility], CT, CT ABDOMEN PELVIS W CON, 10/23/2024, 2:31. FINDINGS: Liver: Liver is normal in size and homogeneous in echotexture. Normal hepatopetal flow is seen in patent main portal vein. Gallbladder: Gallbladder is surgically absent. Biliary ducts: Intrahepatic bile ducts are non-dilated. Extrahepatic bile duct caliber measures 7.5 mm. Normal is 6-7 mm or less in diameter, or 10 mm or less post-cholecystectomy. Pancreas: Pancreas is not visualized due to overlying bowel gas. Miscellaneous: No free abdominal fluid. IMPRESSION: Unremarkable ultrasound examination of right upper quadrant abdomen. Dictated by: Delroy Ely M.D. on 10/23/2024 at 19:39 Approved by: Delroy Ely M.D. on 10/23/2024 at 19:39
[2024-10-23] MEDS: HYDROMORPHONE 1 MG INJ IV (19:10)
[2024-10-23 19:46] LABS: Lactate (Lactic Acid) 0.9 mmol/L (0.7-2.1)
--- NOTE | 2024-10-23 21:42 | EKG_ITS ---
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
[2024-10-23 21:46] LABS: D Dimer 447 ng/ml (<500)
[2024-10-24 23:08] LABS: HBsAg Screen Negative (Negative); Hepatitis A Antibody IgM Negative (Negative); Hepatitis B Core Antibody IgM Negative (Negative); Hepatitis C Antibody Non Reactive (Non Reactive)
== END 2024-10-23 22:43 | disposition home or self-care (01) ==
PROVIDERS: Emergency Medicine; Emergency Provider Emergency Medicine; Family Provider Nurse Practitioner Family; PCP Nurse Practitioner Family
DX: K52.9 Noninfective gastroenteritis and colitis, unspecified (principal); R74.8 Abnormal levels of other serum enzymes; R11.2 Nausea with vomiting, unspecified; R55 Syncope and collapse
CPT/HCPCS: 36415; 76705; 80053; 80074; 80320; 80329; 83605; 83690; 85025; 85379; 93005; 96361; 96374; 96375; 99284; G0480; J0780; J1171; J2270; J2470

== ENCOUNTER 2024-11-15 07:50 | Emergency (ER) | payer OTHER, SELFPAY ==
[2024-11-15 07:54] VITALS: BP 119/75; PULSE 99; RESP 16; TEMP 36.6; O2SAT 96; BMI 36.8
--- NOTE | 2024-11-15 08:02 | PC.NURSE ---
Pt also reports arthritis in lower back. Pt reports history of H. Pylori infection (?)
[2024-11-15 08:19] LABS: Add Manual Diff / Slide Review NO; Basophils Absolute Auto 0 /uL (0-100); Basophils Percent Auto 0.4 % (0-2); Eosinophils Absolute Auto 200 /uL (0-450); Eosinophils Percent Auto 1.9 % (2-4); Hematocrit 41.8 % (36-46); Hemoglobin 13.6 g/dL (12.0-16.0); Lymphocytes Absolute Auto 2300 /uL (1100-4500); Lymphocytes Percent Auto 26.4 % (25-40); Mean Corpuscular HGB Conc 32.5 % (30-36); Mean Corpuscular Hemoglobin 28.2 PG (26-34); Mean Corpuscular Volume 86.8 fL (80-100); Monocytes Absolute Auto 500 /uL (0-900); Monocytes Percent Auto 6.2 % (3-14); Neutrophils Absolute Auto 5700 /uL (1500-7000); Neutrophils Percent Auto 65.1 % (50-75); Platelet Count 330 X10^3/uL (150-400); Red Blood Cell Count 4.82 X10^6/uL (4.0-5.2); Red Cell Distribution Width 13.8 % (11.6-14.8); White Blood Cell Count 8.8 X10^3/uL (4.5-11.0)
[2024-11-15 08:31] LABS: Alanine Aminotransferase 187 IU/L (<35); Albumin 4.7 g/dL (3.5-5.0); Albumin Globulin Ratio 1.4 (1.0-2.8); Alkaline Phosphatase 116 U/L (38-126); Aspartate Aminotransferase 260 IU/L (14-36); BUN Creatinine Ratio 13.3 (6-22); Bilirubin Total 1.1 mg/dL (0.2-1.3); Blood Urea Nitrogen 10 mg/dL (7-17); Calcium 9.1 mg/dL (8.4-10.2); Carbon Dioxide 21 mmol/L (22-32); Chloride 107 mmol/L (98-107); Estimated Glomerular Filt Rate > 60 mL/min (>60); Globulin 3.3 g/dL (1.7-4.1); Glucose 97 mg/dL (70-100); HEMOLYSIS 119 (0-50); Lipase 47 U/L (23-300); Potassium 4.4 mmol/L (3.4-5.1); Sodium 138 mmol/L (137-145)
--- NOTE | 2024-11-15 10:11 | ED_ITS ---
HPI - Abdominal Pain General Chief Complaint: Abdominal Pain Stated Complaint: Sharp pain on left side of body travels to right Time Seen by Provider: 11/15/24 08:56 Source: patient Mode of arrival: Ambulatory History of Present Illness HPI narrative: Patient here for back pain that radiates to the abdomen. Patient had cervical neurosurgery/grafting done 1 year ago at [facility] with surgeon Dr. Contreras. Patient does have history of arthritis. It was supposed to also help her lower back pain. It did not. Patient seen here twice earlier this month for abdominal pain. She states she is not here for symptoms from those visits. Patient denies any loss control of bowel or bladder. No saddle paresthesia. She has history of IBS but that is not new for her. Related Data Previous Rx's Medication Instructions Recorded ondansetron 4 mg disintegrating 4 mg PO TID-QID PRN nausea and 03/25/23 tablet vomiting #10 tabs ondansetron 4 mg disintegrating 4 mg PO TID-QID PRN nausea and 03/25/23 tablet vomiting #10 tabs phenylephrine 0.25 %-mineral oil 1 applic [place] BID-QID PRN rectal 09/03/24 14 %-petrolatm 74.9 % rectal discomfort #56 grams ointment (Hemorrhoidal(phenyleph-min oil-petrolat)) ondansetron 4 mg disintegrating 4 mg PO Q8H PRN nausea and 10/23/24 tablet vomiting #10 tabs promethazine 25 mg tablet 25 mg PO Q4-6H PRN nausea and 10/23/24 vomiting #10 tabs Allergies Allergy/AdvReac Type Severity Reaction Status Date / Time acetaminophen AdvReac Severe Hives Verified 11/15/24 07:54 diphenhydramine AdvReac Hives Verified 11/15/24 07:54 [From Benadryl] metoclopramide [From Reglan] AdvReac Hives Verified 11/15/24 07:54 Review of Systems Review of Systems Narrative: GENERAL: Negative chills, fatigue, malaise, fever, sweats. HEENT: Negative sinus pain, ear pain, sore throat RESPIRATORY: Negative dyspnea, cough CARDIOVASCULAR: Negative chest pain, palpitations GASTROINTESTINAL: Positive nausea, vomiting, abdominal pain : Negative dysuria, frequency, hematuria MUSCULOSKELETAL: Positive back, muscle or bony pain SKIN: Negative rash, skin lesions NEUROLOGIC: Negative weakness, numbness ROS Unobtainable: All systems reviewed & are unremarkable except as noted in HPI and below Patient History Medical History Hemorrhoids Social History Smoking Status: Former smoker Smoking Status: Former smoker alcohol intake frequency: holidays/special occasions only Exam Narrative Exam Narrative: GENERAL: in no distress, not toxic not dyspneic HEAD: Normocephalic. EYES: Pupils equal round ENT: Mucous membranes moist. NECK: Trachea midline. CARDIOVASCULAR: Regular rate and rhythm RESPIRATORY: Clear to auscultation. Breath sounds equal bilaterally. No wheezes, rales, or rhonchi. GASTROINTESTINAL: Abdomen soft, non-tender no peritoneal signs no guarding or rebound bowel sounds are present. No CVA tenderness. EXTREMITIES: No gross deformities. BACK: No flank tenderness. No midline tenderness or step-off of the cervical thoracic or lumbar spine. Patient able to lean forward and back without any difficulty with the lower back. NEURO: AOx4. Clear speech SKIN: Warm and dry PSYCH: Not anxious, is cooperative Initial Vital Signs Initial Vital Signs: Vital Signs Temperature 98 F 11/15/24 07:54 Pulse Rate 99 H 11/15/24 07:54 Respiratory Rate 16 11/15/24 07:54 Blood Pressure 119/75 11/15/24 07:54 Pulse Oximetry 96 11/15/24 07:54 Oxygen Delivery Method Room Air 11/15/24 07:54 Course Orders Ordered: ED Orders 11/15/24 08:09 Complete Blood Count AUTO DIFF Stat Comprehensive Metabolic Panel Stat Lipase Stat 11/15/24 14:41 MR lumbar spine wo con Stat Ondansetron HCl (Ondansetron 4 Mg/2 Ml Inj) 4 mg IV NOW PRN PRN Reason: Nausea And Vomiting Ondansetron HCl (Ondansetron 4 Mg Odt) 4 mg PO NOW PRN PRN Reason: Nausea And Vomiting Discontinued Medications Diazepam (Diazepam 10 Mg/2 Ml Syringe) 5 mg IV NOW ONE Stop: 11/15/24 12:05 Last Admin: 11/15/24 14:05 Dose: 5 mg Documented By: ESTEFANIA Ketorolac Tromethamine (Ketorolac 30 Mg/Ml Vial) 15 mg IV NOW ONE Stop: 11/15/24 10:13 Last Admin: 11/15/24 10:30 Dose: 15 mg Documented By: ESTEFANIA Vital Signs Vital signs: Vital Signs - 8 hr 11/15/24 15:10 Temperature 97.9 F Pulse Rate 98 H Blood Pressure 119/80 Pulse Oximetry 98 Oxygen Delivery Method Room Air MDM - Abdominal Pain Lab Data 11/15/24 08:09 11/15/24 08:09 Labs: Lab Results 11/15/24 Range/Units 08:09 WBC 8.8 (4.5-11.0) X10^3/uL RBC 4.82 (4.0-5.2) X10^6/uL Hgb 13.6 (12.0-16.0) g/dL Hct 41.8 (36-46) % MCV 86.8 (80-100) fL MCH 28.2 (26-34) PG MCHC 32.5 (30-36) % RDW 13.8 (11.6-14.8) % Plt Count 330 (150-400) X10^3/uL Neut % (Auto) 65.1 (50-75) % Lymph % (Auto) 26.4 (25-40) % [place] % (Auto) 6.2 (3-14) % Eos % (Auto) 1.9 L (2-4) % Baso % (Auto) 0.4 (0-2) % Neut # (Auto) 5700 (8963-0311) /uL Lymph # (Auto) 2300 (1797-0831) /uL [place] # (Auto) 500 (0-900) /uL Eos # (Auto) 200 (0-450) /uL Baso # (Auto) 0 (0-100) /uL Sodium 138 (137-145) mmol/L Potassium 4.4 (3.4-5.1) mmol/L Chloride 107 (98-107) mmol/L Carbon Dioxide 21 L (22-32) mmol/L BUN 10 (7-17) mg/dL Creatinine 0.75 (0.52-1.04) mg/dL Estimated GFR > 60 (>60) mL/min BUN/Creatinine Ratio 13.3 (6-22) Glucose 97 (70-100) mg/dL Calcium 9.1 (8.4-10.2) mg/dL Total Bilirubin 1.1 (0.2-1.3) mg/dL AST 260 H (14-36) IU/L ALT 187 H (<35) IU/L Alkaline Phosphatase 116 (38-126) U/L Total Protein 8.0 (6.3-8.2) g/dL Albumin 4.7 (3.5-5.0) g/dL Globulin 3.3 (1.7-4.1) g/dL Albumin/Globulin Ratio 1.4 (1.0-2.8) Lipase 47 (23-300) U/L Point of care testing: Point of Care Testing Test Results Negative Urine Dip Bedside Urine Glucose Negative Bedside Urine Bilirubin - Negative Bedside Urine Ketone - Negative Urine Specific [place] 1.020 Bedside Urine Occult Blood - Negative Bedside Urine pH 6.0 Bedside Urine Protein - Negative Bedside Urine Urobilinogen - Negative Bedside Urine Nitrite - Negative Bedside Urine Leukocytes - Negative Esterase Imaging Data MRI lumbar spine: Radiologist's Impression: [address] [address] Magnetic Resonance Report Signed Patient: Nalini Farias MR#: [id number] : 1990 Acct:[id number] Age/Sex: 33 / F Date of Service: 11/15/24 Loc: ED Accession Number: [id number] Procedure: MR lumbar spine wo con Ordering Provider: Corwin Portillo MD PROCEDURE: MR LUMBAR SPINE WO CON INDICATIONS: Back pain/abdominal pain/weakness.. TECHNIQUE: Noncontrast sagittal T1 spin echo and T2 fast echo, sagittal STIR, and T2 fast spin echo through the lumbar spine. In cases with scoliosis, additional coronal T2 fast spin echo may be performed. COMPARISON: [facility], MR, MR LUMBAR SPINE WITHOUT CONTRAST, 04/30/2024, 20:34. FINDINGS: Image quality: Excellent. Alignment and Curvature: There is normal bony alignment. Bone Marrow: Marrow is of normal overall signal. No acute vertebral body compression fractures. Spinal Cord: Conus medullaris terminates at the L1-L2 level. Visualized cord demonstrates normal signal and size. Paraspinous Soft Tissues: No paravertebral masses. T12-L1: Normal appearance. L1-L2: Normal appearance. L2-L3: Normal appearance. L3-L4: Normal appearance. L4-L5: Mild facet arthropathy. No central canal or neural foraminal stenosis. L5-S1: Mild diffuse disc bulge. Facet arthropathy. No significant central canal or neural foraminal stenosis. IMPRESSION: Mild degenerative changes of the lower lumbar spine. No significant central canal or neural foraminal stenosis. Dictated by: Everette Hassan M.D. on 11/15/2024 at 14:59 Approved by: Everette Hassan M.D. on 11/15/2024 at 15:02 [facility] Narrative Medical decision making narrative: Patient here for back pain that radiates to the abdomen. Patient had cervical neurosurgery/grafting done 1 year ago at [facility] with surgeon Dr. Contreras. Patient does have history of arthritis. It was supposed to also help her lower back pain. It did not. Patient seen here twice earlier this month for abdominal pain. She states she is not here for symptoms from those visits. Patient denies any loss control of bowel or bladder. No saddle paresthesia. She has history of IBS but that is not new for her. After history and exam CBC CMP MRI lumbar spine urinalysis test [facility] Medical records reviewed: ER visits for here earlier this month Differential considered: Includes but not limited to lumbar degenerative disc disease herniated disc diskitis Lab Test results independently reviewed as above. Pertinent findings: Negative test negative nitrite negative leukocyte WBC 8.8 AST 260 ALT 187 Imaging studies independently reviewed: MRI lumbar spine no acute finding Consultations: None indicated this time. Treatments: Valium, Toradol Re-evaluations: 3:40 p.m.. Updated patient results. They are reassuring. Patient does have ortho spine to follow up, Dr. Contreras, she will call tomorrow for follow up. She does have family doctor to follow up with as well. I will give her referral for General surgery for EGD colonoscopy, it has been over 5 years since her last scoping. Return precautions reviewed. She is calm for reefer truck driver. She does have promethazine at home. Primary care is provided her Ativan as well. It does help for nausea. She desires discharge home Discussion: Appropriate for discharge home exam is reassuring. Return precautions reviewed patient. Patient has baseline liver enzyme elevation. This is not new. Referral for General surgery will be provided for EGD colonoscopy. Return precautions reviewed. She desires discharge home. Diagnosis: Chronic back pain recurrent abdominal pain Discharge Plan Departure Patient Disposition: Home Clinical Impression: Abdominal pain, recurrent Chronic low back pain Qualifiers: Back pain laterality: unspecified Sciatica presence: unspecified whether sciatica present Qualified Code(s): M54.50 - Low back pain, unspecified Instructions: DI for Chronic Pain -- Adult Activity Restrictions/Additional Instructions: No driving operating machinery today as you have been given IV medications that will make your groggy. Please see family doctor this week for re-evaluation. See your orthopedic surgeon within a week for re-evaluation. Please call provided general surgery office tomorrow for evaluation for endoscopy your stomach and colonoscopy. Continue your home medications. Return if worse if any questions or concerns Prescriptions: No Action ondansetron 4 mg tablet,disintegrating 4 mg PO TID-QID PRN (Reason: nausea and vomiting) Qty: 10 0RF ondansetron 4 mg tablet,disintegrating 4 mg PO TID-QID PRN (Reason: nausea and vomiting) Qty: 10 0RF ondansetron 4 mg tablet,disintegrating 4 mg PO Q8H PRN (Reason: nausea and vomiting) Qty: 10 0RF promethazine 25 mg tablet 25 mg PO Q4-6H PRN (Reason: nausea and vomiting) Qty: 10 0RF Hemorrhoidal(PE-min oil-melany) 0.25-14-74.9 % ointment 1 applic [place] BID-QID PRN (Reason: rectal discomfort) Qty: 56 0RF Referrals: Renetta Mckeon ARNP [Primary Care Provider] - Samanta Zapata MD [Physician] - Stand Alone Forms: Patient Portal/API/Survey
[2024-11-15] MEDS: KETOROLAC 30 MG/ML VIAL 15 MG IV (10:30)
--- NOTE | 2024-11-15 14:01 | PC.NURSE ---
[place] [facility] [place] Farias[place] - [phone] will be able to pick pt up.
[2024-11-15] MEDS: diazePAM 10 MG/2 ML SYRINGE 5 MG IV (14:05)
--- NOTE | 2024-11-15 14:41 | DI.MRI.S_ITS ---
PROCEDURE: MR LUMBAR SPINE WO CON INDICATIONS: Back pain/abdominal pain/weakness.. TECHNIQUE: Noncontrast sagittal T1 spin echo and T2 fast echo, sagittal STIR, and T2 fast spin echo through the lumbar spine. In cases with scoliosis, additional coronal T2 fast spin echo may be performed. COMPARISON: [facility], MR, MR LUMBAR SPINE WITHOUT CONTRAST, 04/30/2024, 20:34. FINDINGS: Image quality: Excellent. Alignment and Curvature: There is normal bony alignment. Bone Marrow: Marrow is of normal overall signal. No acute vertebral body compression fractures. Spinal Cord: Conus medullaris terminates at the L1-L2 level. Visualized cord demonstrates normal signal and size. Paraspinous Soft Tissues: No paravertebral masses. T12-L1: Normal appearance. L1-L2: Normal appearance. L2-L3: Normal appearance. L3-L4: Normal appearance. L4-L5: Mild facet arthropathy. No central canal or neural foraminal stenosis. L5-S1: Mild diffuse disc bulge. Facet arthropathy. No significant central canal or neural foraminal stenosis. IMPRESSION: Mild degenerative changes of the lower lumbar spine. No significant central canal or neural foraminal stenosis. Dictated by: Everette Hassan M.D. on 11/15/2024 at 14:59 Approved by: Everette Hassan M.D. on 11/15/2024 at 15:02
[2024-11-15 15:10] VITALS: BP 119/80; PULSE 98; TEMP 36.6; O2SAT 98
[2024-11-15 15:50] VITALS: BP 109/71; PULSE 91; RESP 24; O2SAT 100
== END 2024-11-15 15:50 | disposition home or self-care (01) ==
PROVIDERS: Emergency Provider Emergency Medicine; Family Provider Nurse Practitioner Family; PCP Nurse Practitioner Family
DX: M54.50 Low back pain, unspecified (principal); G89.29 Other chronic pain; R10.9 Unspecified abdominal pain; Z98.890 Other specified postprocedural states; Z87.19 Personal history of other diseases of the digestive system
CPT/HCPCS: 72148; 80053; 81003; 81025; 83690; 85025; 96374; 96375; 99283; 99284; J1885; J3360

== ENCOUNTER 2024-11-20 06:32 | Day surgery (SDC) | payer OTHER, SELFPAY ==
[2024-11-20] VITALS (7 sets, daily range): BP systolic 84–109; BP diastolic 48–71; PULSE 78–105; RESP 10–18; TEMP 36.2–37; O2SAT 96–100
--- NOTE | 2024-11-20 | PATH_ITS ---
[facility] Accession Number: [id number] No. of containers..02 Tissue . 01 Material submitted: . PART A: stomach - STOMACH BIOPSIES PART B: rectum - RECTAL POLYP . 01 Clinical history: . PART A: EVALUATE FOR H PYLORI . 01 Diagnosis: A: Gastric antral mucosa with mild chronic inactive gastritis. Negative for helicobacter organisms on H/E and immunostain sections, see comment. Negative for intestinal metaplasia, dysplasia, or malignancy. - B: RECTUM, POLYPECTOMY: Hyperplastic polyp. [facility] 11/26/2024 1352 Local . 01 Comment: An immunohistochemical stain was performed to evaluate for Helicobacter organisms and is NEGATIVE. The control stain was adequately reactive. Technical Note: The immunohistochemical stains reported were performed at [facility] ([address], [place] [address]). They were developed and their performance characteristics determined by [employer] They have not been cleared or approved by the U.S. Food and Drug Administration, although such approval is not required for analyte-specific reagents of this type. . 01 Electronically signed: . Christina Perales MD, Pathologist NPI- [id number] . 01 Gross description: . A. Received in formalin with two patient identifiers and stomach biopsies, are three sutherland soft tissue fragments, 0.2-0.4 cm in greatest dimension, submitted in A1. B. Received in formalin with two patient identifiers and rectal polyp, are two [place] soft tissue fragments, 0.2 cm each in greatest dimension, submitted in B1. ([id number]) /MRV 11/22/2024 2131 Local . 01 Pathologist provided ICD-10: R10.9, Z87.11 . 01 CPT . 780454, 649298, S56886 Specimen Comment: A courtesy copy of this report has been sent to [facility] Pathology Performed at: [address] [id number] MD Leodan Dejesus MD Phone: [phone]
--- NOTE | 2024-11-20 07:29 | P.HP_ITS ---
History of Present Illness History of Present Illness Date Patient Seen: 11/20/24 Time Patient Seen: 07:29 Chief complaint: EGD & Colonoscopy w/poss bx's Narrative: This is a 34-year-old woman with a past medical history of peptic ulcer disease, IBS, H.pylori, anal fissures who presents for chronic abdominal pain and rectal bleeding. Patient states that she has had abdominal pain for many years. She is status post appendectomy and cholecystectomy. Patient complains of diarrhea. Reports having 9 bowel movements a day that are loose in nature. She does also endorse straining despite the looseness of the bowel movements. Upon straining, the patient endorses a popping sensation near the anus. She states that she has been taking the hemorrhoidal cream that was prescribed after her last visit to the emergency department. Patient's last EGD was approximately 5 years ago where she was diagnosed with H pylori. She had a stool sample sent subsequently the stated that she cleared the H pylori. She denies taking any PPI or Pepcid since then. Patient states that she was not prescribed any of these medications. [facility] Medical History (Updated 11/20/24 @ 07:34 by Samanta Zapata MD) Anal fissure Hemorrhoids Social History Smoking Status: Former smoker Meds Home Medications and Allergies Home Medications Medication Instructions Recorded Confirmed Type ondansetron 4 mg disintegrating 4 mg PO TID-QID PRN nausea and 03/25/23 Rx tablet vomiting #10 tabs ondansetron 4 mg disintegrating 4 mg PO TID-QID PRN nausea and 03/25/23 Rx tablet vomiting #10 tabs phenylephrine 0.25 %-mineral oil 1 applic [place] BID-QID PRN rectal 09/03/24 Rx 14 %-petrolatm 74.9 % rectal discomfort #56 grams ointment (Hemorrhoidal(phenyleph-min oil-petrolat)) ondansetron 4 mg disintegrating 4 mg PO Q8H PRN nausea and 10/23/24 Rx tablet vomiting #10 tabs promethazine 25 mg tablet 25 mg PO Q4-6H PRN nausea and 10/23/24 Rx vomiting #10 tabs dextroamphetamine-amphetamine 15 1 tab PO BID 11/20/24 11/20/24 History mg tablet Allergies Allergy/AdvReac Type Severity Reaction Status Date / Time acetaminophen AdvReac Severe Hives Verified 11/20/24 07:11 diphenhydramine AdvReac Hives Verified 11/20/24 07:11 [From Benadryl] metoclopramide [From Reglan] AdvReac Hives Verified 11/20/24 07:11 Review of Systems Review of Systems ROS: Yes All systems reviewed with the patient and are negative except as otherw ise documented Constitutional Constitutional: Reports fatigue Eyes Eyes: Denies decreased night vision and Denies diplopia ENT Ears, Nose, Mouth, and Throat: Yes as per HPI Cardiovascular Cardiovascular: Reports system reviewed and no additional complaints, except as documented and Denies chest pain with activity Respiratory Respiratory: Reports system reviewed and no additional complaints, except as documented Gastrointestinal Gastrointestinal: Reports abdominal pain, Reports cramping, Reports heartburn, Reports loose stools and Reports nausea Genitourinary Genitourinary: Reports as per HPI Musculoskeletal Musculoskeletal: Reports back pain and Reports stiffness Integumentary/Breasts Skin/Breast: Reports system reviewed and no additional complaints, except as documented Neurologic Neurologic: Reports system reviewed and no additional complaints, except as documented Psychiatric Psychiatric: Reports system reviewed and no additional complaints, except as documented Endocrine Endocrine: Reports system reviewed and no additional complaints, except as documented and Reports fatigue Hematologic/Lymphatic Hematologic/Lymphatic: Reports system reviewed and no additional complaints, except as documented Allergic/Immunologic Allergic/Immunologic: Reports system reviewed and no additional complaints, e xcept as documented Exam Const General: cooperative and well developed Orientation: alert, awake and oriented x3 HENMT Head: normal to inspection and normocephalic Ears: external ears normal Nose: external nose normal Eyes General: appearance normal, both eyes and all related structures Neck Neck: normal visual inspection Chest Chest: normal inspection of the chest Resp Effort & Inspection: normal respiratory effort, able to speak in complete sentences and no respiratory distress GI Inspection: normal to inspection and distended Palpation: soft and tender (Mild tenderness to palpation) Skin General: no rashes or lesions noted Neuro General: patient alert, patient awake and patient oriented x3 Extrem General: normal to inspection Psych Appearance: well kempt Speech and Movement: speech and movement normal Assessment & Plan Assessment and plan (1) Abdominal pain, recurrent: Status: Acute Assessment & Plan narrative: This is a 34-year-old woman with multiple GI complaints including anal fissure, IBS, chronic abdominal pain status post appendectomy and cholecystectomy who presents for upper endoscopy and colonoscopy. High suspicion that patient has chronic abdominal pain is multifactorial. Patient would benefit from a highway research engineer follow-up. We will discuss the benefits of FODMAP diet postprocedure in addition to identifying a highway research engineer for follow-up. -EGD with biopsies to evaluate for H pylori -colonoscopies and evaluation of anal fissures/hemorrhoids -ParQ patient agreed to procedure. We discussed the risk of bleeding, infection, perforation, need for additional procedures and she agrees to proceed. -will discuss FODMAP diet -discharge postprocedure. -follow-up postprocedure Time-Based Coding :: 30 mins spent with patient and on the chart (including review of chart, obtaining history, exam, reviewing outside data, placing orders, documenting exam and treatment plan, and counseling patient) on 11/20/2024 [employer]ender Document charge(s): Yes Charge Codes Inpatient/observation care including admit and discharge same day: [id number]
[2024-11-20] MEDS: LACTATED RINGERS 1,000 ML 42 ML IV (07:37)
--- NOTE | 2024-11-20 07:59 | PM.OP.EC ---
Operative Date/Time/Diagnoses Date of procedure: 11/20/24 Time of procedure: 07:59 Pre-op diagnosis: Chronic abdominal pain, rectal bleeding Post-op diagnosis: other (1. Bile reflux gastritis ) Procedure & Clinicians Study performed: 1. EGD with biopsies 2. Colonoscopy Same procedure as scheduled: Yes Indications: This is a 34-year-old woman with a history of chronic abdominal pain, IBS, H pylori, peptic ulcer disease, anal fissure who presents for acute on chronic abdominal pain and rectal bleeding. ParQ was held and patient agreed to proceed with EGD and colonoscopy. Surgeon: Samanta Zapata Procedure Notes SCOAP/Timeout: 0749 Procedure in detail: The patient was brought to the endoscopy suite. Monitored anesthesia care was induced after a time-out was performed. A time-out confirmed the patient, procedure and all team members were in agreement. The gastroscope was entered into the patient's oropharynx and passed into the esophagus without incident. The scope was advanced into the stomach where the patient was found to have a large volume of bile reflux gastritis. All bile was suctioned free from the stomach. The gastroscope was retroflexed and no hiatal hernia was identified. The scope was then advanced past the pylorus with ease. The duodenal D1 and D2 were evaluated and no mucosal abnormalities, AVMs or polyps were noted. The scope was withdrawn to the pre-pyloric region. Random pre-pyloric biopsies were taken to evaluate for H pylori. The scope was further withdrawn into the esophagus. The Z-line was noted at 34 cm in the gastroesophageal junction was noted at 35 cm. The stomach was then desufflated and the scope was withdrawn into the esophagus. No esophagitis was identified. The scope was further withdrawn out of the oropharynx and the larynx was identified. No reflux was noted on the larynx. Overall there was no mucosal abnormalities of the esophagus. The gastric mucosa demonstrated evidence of gastritis secondary to bile reflux. We then proceeded with performing the colonoscopy. Patient had a digital rectal exam which was performed. Evidence of well-healed anal fissure was identified. No external or internal hemorrhoids were palpated. The colonoscope was passed through the anus under direct visualization and was advanced with ease to the ileocecal valve. The scope was entered into the terminal ileum and patient was found to have benign polyps there. No biopsies were taken. The appendix was captured on picture. The scope was withdrawn and the mucosa was carefully examined. Patient did not have any evidence of AVMs, diverticulosis or any abnormalities other than a 4 mm polyp which was identified in the rectum. The total withdrawal time was approximately 12 minutes. The rectal polyp was taken with a cold biopsy forceps and sent to pathology as a permanent specimen. There was no bleeding afterwards. Retroflexion was performed and there was no internal hemorrhoids noted. The colonoscope was then withdrawn. There were no unplanned events. Scope withdrawal time: EGD 2 mins. C scope 12 mins Sedation minutes: 29 Findings: gastritis (Bile reflux gastritis) and polyp (Rectal hyperplastic polyp) Specimen(s): other (1. Gastric biopsies) Complications: none Impression: -recommend pantoprazole 40 mg daily and we will initiate cholestyramine for bile reflux -repeat colonoscopy in 10 years sooner if has recurrence of rectal bleeding -no evidence of hemorrhoids or active anal fissure on exam today -recommend FODMAP diet. -follow up with the office once biopsy results return. Post-procedure Recommendations: Colonscopy in 10 years, Prescription for (Cholestyramine), Start medication(s) (Initiate pantoprazole daily), Will call with biopsy results and Other recommendation (Recommend FODMAP diet) Follow up: weeks (2 ) Disposition: PACU
[2024-11-20] MEDS: ONDANSETRON 4 MG/2 ML INJ IV (08:37)
== END 2024-11-20 09:10 | disposition home or self-care (01) ==
PROVIDERS: Family Provider Nurse Practitioner Family; PCP Nurse Practitioner Family; Referring Provider Surgery; Visit Provider Surgery
PROC: 0DJ08ZZ Inspection of Upper Intestinal Tract, Via Natural or Artificial Opening Endoscopic (ICD-10-PCS; CPT 45380; principal; 2024-11-20 07:45)
PROC: 0DJD8ZZ Inspection of Lower Intestinal Tract, Via Natural or Artificial Opening Endoscopic (ICD-10-PCS; CPT 45378; 2024-11-20 07:45)
DX: K62.5 Hemorrhage of anus and rectum (principal); R10.9 Unspecified abdominal pain; Z87.11 Personal history of peptic ulcer disease; K29.60 Other gastritis without bleeding; K63.5 Polyp of colon
CPT/HCPCS: 45380; 43239; J2250; J2405; J2704

== ENCOUNTER 2025-03-17 14:46 | Emergency (ER) | payer OTHER, SELFPAY ==
[2025-03-17] VITALS (13 sets, daily range): BP systolic 105–148; BP diastolic 70–91; PULSE 72–98; RESP 16–28; TEMP 36.7; O2SAT 93–100; BMI 34.2
[2025-03-17] MEDS: diazePAM 10 MG/2 ML SYRINGE 5 MG IV (15:18)
[2025-03-17] MEDS: SODIUM CHLORIDE 0.9% 1,000 ML 1000 ML IV (15:18)
[2025-03-17 15:21] LABS: Add Manual Diff / Slide Review NO; Basophils Absolute Auto 100 /uL (0-100); Basophils Percent Auto 0.7 % (0-2); Eosinophils Absolute Auto 100 /uL (0-450); Eosinophils Percent Auto 0.7 % (2-4); Hematocrit 43.1 % (36-46); Hemoglobin 14.2 g/dL (12.0-16.0); Lymphocytes Absolute Auto 2400 /uL (1100-4500); Lymphocytes Percent Auto 24.4 % (25-40); Mean Corpuscular HGB Conc 32.9 % (30-36); Mean Corpuscular Hemoglobin 28.5 PG (26-34); Mean Corpuscular Volume 86.7 fL (80-100); Monocytes Absolute Auto 600 /uL (0-900); Monocytes Percent Auto 6.4 % (3-14); Neutrophils Absolute Auto 6600 /uL (1500-7000); Neutrophils Percent Auto 67.8 % (50-75); Platelet Count 305 X10^3/uL (150-400); Red Blood Cell Count 4.98 X10^6/uL (4.0-5.2); Red Cell Distribution Width 13.6 % (11.6-14.8); White Blood Cell Count 9.8 X10^3/uL (4.5-11.0)
[2025-03-17 15:29] LABS: Alanine Aminotransferase 84 IU/L (<35); Albumin 4.9 g/dL (3.5-5.0); Albumin Globulin Ratio 1.4 (1.0-2.8); BUN Creatinine Ratio 9.5 (6-22); Blood Urea Nitrogen 7 mg/dL (7-17); Calcium 9.7 mg/dL (8.4-10.2); Carbon Dioxide 21 mmol/L (22-32); Chloride 105 mmol/L (98-107); Estimated Glomerular Filt Rate > 60 mL/min (>60); Globulin 3.4 g/dL (1.7-4.1); Glucose 100 mg/dL (70-99); Sodium 137 mmol/L (137-145); Total Protein 8.3 g/dL (6.3-8.2)
[2025-03-17 15:44] LABS: HEMOLYSIS 125 (0-50)
[2025-03-17 15:45] LABS: Alkaline Phosphatase 108 U/L (38-126); Aspartate Aminotransferase 70 IU/L (14-36); Magnesium 1.9 mg/dL (1.6-2.3); Potassium 4.6 mmol/L (3.4-5.1)
[2025-03-17 16:10] LABS: Appearance Urine UA CLEAR; Bilirubin Urine UA NEGATIVE (NEGATIVE); Color Urine UA YELLOW; Glucose Urine UA NEGATIVE (Negative); Ketones Urine UA NEGATIVE (NEGATIVE); Leukocyte Esterase Urine UA NEGATIVE (NEGATIVE); Nitrite Urine UA NEGATIVE (Negative); Occult Blood Urine UA NEGATIVE (Negative); Protein Urine UA NEGATIVE (Negative); Urobilinogen Urine UA 0.2 E.U./dL (0.2)
[2025-03-17 16:24] LABS: Bacteria Urine None Seen; Culture Indicated Urine Cult Not Indicated; RBC Urine None Seen (0-5/HPF); Squamous Epithelial Cell Urine None Seen (0-5/HPF); Urine Volume 10mL (spun); WBC Urine None Seen (0-5/HPF)
--- NOTE | 2025-03-17 16:41 | ED.NAVMDI ---
HPI - Nausea/Vomiting/Diarrhea <Radha Avery MD - Last Filed: 03/18/25 07:09> General Chief complaint: Nausea/Vomiting/Diarrhea Stated complaint: Nausea, Headache, Vomiting Time Seen by Provider: 03/17/25 14:47 Source: patient Mode of arrival: Ambulatory History of Present Illness HPI Narrative: 34-year-old woman who comes in with a myriad of complaints is extraordinarily distraught and it is difficult to understand her primary reason for coming to the emergency department. She states that she has recurrent episodes of chest tightness and pressure, her body wants to vomit but she can not make herself do so even with the actively trying, dramatically increased anxiety point of panic attack, headaches simply will not let go, was recently diagnosed with POTS and has been unable to find any relief for any of her symptoms. She states that her mid abdominal pain is so severe that she can not lay down she can not sit up she is uncomfortable in any position and if she stands up too long she feels like she is going to pass out. She is not complaining of fevers or chills Related Data Home Medications ?Medication ?Instructions ?Recorded ?Confirmed dextroamphetamine-amphetamine 15 1 tab PO BID 11/20/24 03/17/25 mg tablet cholestyramine 4 gram oral powder 4 g PO BID 03/17/25 03/17/25 for suspension in a packet (Cholestyramine Light) gabapentin 300 mg capsule 300 mg PO BID 03/17/25 03/17/25 ibuprofen 600 mg tablet 600 mg PO Q8H PRN pain 03/17/25 03/17/25 lidocaine 5 % topical patch 1 patch topical Q3D 03/17/25 03/17/25 lorazepam 1 mg tablet 1 mg PO DAILY PRN anxiety 03/17/25 03/17/25 mirtazapine 15 mg tablet 15 mg PO ONCE PM 03/17/25 03/17/25 Previous Rx's ?Medication ?Instructions ?Recorded phenylephrine 0.25 %-mineral oil 1 applic DE BID-QID PRN rectal 09/03/24 14 %-petrolatm 74.9 % rectal discomfort #56 grams ointment (Hemorrhoidal(phenyleph-min oil-petrolat)) promethazine 25 mg tablet 25 mg PO Q4-6H PRN nausea and 10/23/24 vomiting #10 tabs pantoprazole 40 mg tablet,delayed 40 mg PO DAILY #120 tabs 11/20/24 release Allergies Allergy/AdvReac Type Severity Reaction Status Date / Time acetaminophen AdvReac Severe Hives Verified 03/17/25 14:59 diphenhydramine (From AdvReac Hives Verified 03/17/25 14:59 Benadryl) metoclopramide (From Reglan) AdvReac Hives Verified 03/17/25 14:59 Review of Systems <Radha Avery MD - Last Filed: 03/18/25 07:09> Review of Systems Narrative: For markedly positive Patient History <Radha Avery MD - Last Filed: 03/18/25 07:09> Medical History Anal fissure Hemorrhoids Surgical History History of cholecystectomy S/P appy Social History Smoking Status: Current some day smoker Smoking Status: Current some day smoker alcohol intake frequency: holidays/special occasions only Exam <Radha Avery MD - Last Filed: 03/18/25 07:09> Initial Vital Signs Initial Vital Signs: Vital Signs Pulse Oximetry 100 03/17/25 14:52 General: Distraught, HEENT: Moist mucous membranes, normal sclera with reactive pupils, Respiratory: Lungs are clear Full and symmetrical air movement Cardiac: Regular rate and rhythm no murmurs no bruits Abdomen: Mild epigastric tenderness without rebound or guarding Skin: Diaphoretic due to her severe pain in emotional distress Neurologic: Grossly neurologically intact with no obvious asymmetries or abnormalities Extremities: No trauma, no edema Psych: Difficulty cooperating and explaining symptoms due to her dramatic anxiety and pain <Anders Mendoza DO - Last Filed: 03/17/25 21:01> Initial Vital Signs Initial Vital Signs: Vital Signs Pulse Oximetry 100 03/17/25 14:52 Course <Radha Avery MD - Last Filed: 03/18/25 07:09> Orders Ordered: Discontinued Medications Cholestyramine Resin (Cholestyramine/Aspartame 4 Gm Pack) 4 gm PO BID SHELL Diazepam (Diazepam 10 Mg/2 Ml Syringe) 5 mg IV NOW ONE Stop: 03/17/25 14:59 Last Admin: 03/17/25 15:18 Dose: 5 mg Documented By: Sodium Chloride (Normal Saline 0.9%) 1,000 mls @ 1,000 mls/hr IV BOLUS ONE Stop: 03/17/25 15:57 Last Infusion: 03/17/25 16:16 Dose: Infused Documented By: Admin: 03/17/25 15:18 Dose: 1,000 mls/hr Documented By: Lorazepam (Lorazepam 0.5 Mg Tablet) 2 mg PO NOW PRN PRN Reason: anxiety Olanzapine (Olanzapine Odt 10 Mg Tab) 10 mg PO NOW ONE Stop: 03/17/25 17:37 Last Admin: 03/17/25 17:44 Dose: 10 mg Documented By: JEFF Pantoprazole Sodium (Pantoprazole Dr 20 Mg Tablet) 40 mg PO DAILY SHELL Promethazine HCl (Promethazine 25 Mg Tablet) 25 mg PO Q6HR PRN PRN Reason: nausea Vital Signs Vital signs: Vital Signs - 8 hr 03/17/25 14:52 03/17/25 14:53 03/17/25 14:53 Temperature Pulse Rate 87 Respiratory Rate 22 Blood Pressure 148/91 H Pulse Oximetry 100 99 Oxygen Delivery Method 03/17/25 14:59 03/17/25 15:00 03/17/25 15:12 Temperature 98.1 F Pulse Rate 84 86 Respiratory Rate 22 Blood Pressure 148/91 H 115/77 Pulse Oximetry 99 99 Oxygen Delivery Method Room Air 03/17/25 15:12 03/17/25 15:30 03/17/25 15:30 Temperature Pulse Rate 80 91 H Respiratory Rate 28 H Blood Pressure 123/71 Pulse Oximetry 98 99 Oxygen Delivery Method 03/17/25 16:05 03/17/25 16:30 03/17/25 17:00 Temperature Pulse Rate 98 H 82 92 H Respiratory Rate 24 19 24 Blood Pressure Pulse Oximetry 93 97 99 Oxygen Delivery Method 03/17/25 17:03 03/17/25 17:30 03/17/25 17:31 Temperature Pulse Rate 79 Respiratory Rate 16 Blood Pressure 105/83 141/76 H Pulse Oximetry 96 Oxygen Delivery Method 03/17/25 17:31 Temperature Pulse Rate 85 Respiratory Rate 18 Blood Pressure Pulse Oximetry 97 Oxygen Delivery Method <Anders Mendoza, - Last Filed: 03/17/25 21:01> Orders Ordered: Discontinued Medications Cholestyramine Resin (Cholestyramine/Aspartame 4 Gm Pack) 4 gm PO BID SHELL Diazepam (Diazepam 10 Mg/2 Ml Syringe) 5 mg IV NOW ONE Stop: 03/17/25 14:59 Last Admin: 03/17/25 15:18 Dose: 5 mg Documented By: Sodium Chloride (Normal Saline 0.9%) 1,000 mls @ 1,000 mls/hr IV BOLUS ONE Stop: 03/17/25 15:57 Last Infusion: 03/17/25 16:16 Dose: Infused Documented By: Admin: 03/17/25 15:18 Dose: 1,000 mls/hr Documented By: Lorazepam (Lorazepam 0.5 Mg Tablet) 2 mg PO NOW PRN PRN Reason: anxiety Olanzapine (Olanzapine Odt 10 Mg Tab) 10 mg PO NOW ONE Stop: 03/17/25 17:37 Last Admin: 03/17/25 17:44 Dose: 10 mg Documented By: JEFF Pantoprazole Sodium (Pantoprazole Dr 20 Mg Tablet) 40 mg PO DAILY SHELL Promethazine HCl (Promethazine 25 Mg Tablet) 25 mg PO Q6HR PRN PRN Reason: nausea Vital Signs Vital signs: Vital Signs - 8 hr 03/17/25 14:52 03/17/25 14:53 03/17/25 14:53 Temperature Pulse Rate 87 Respiratory Rate 22 Blood Pressure 148/91 H Pulse Oximetry 100 99 Oxygen Delivery Method 03/17/25 14:59 03/17/25 15:00 03/17/25 15:12 Temperature 98.1 F Pulse Rate 84 86 Respiratory Rate 22 Blood Pressure 148/91 H 115/77 Pulse Oximetry 99 99 Oxygen Delivery Method Room Air 03/17/25 15:12 03/17/25 15:30 03/17/25 15:30 Temperature Pulse Rate 80 91 H Respiratory Rate 28 H Blood Pressure 123/71 Pulse Oximetry 98 99 Oxygen Delivery Method 03/17/25 16:05 03/17/25 16:30 03/17/25 17:00 Temperature Pulse Rate 98 H 82 92 H Respiratory Rate 24 19 24 Blood Pressure Pulse Oximetry 93 97 99 Oxygen Delivery Method 03/17/25 17:03 03/17/25 17:30 03/17/25 17:31 Temperature Pulse Rate 79 Respiratory Rate 16 Blood Pressure 105/83 141/76 H Pulse Oximetry 96 Oxygen Delivery Method 03/17/25 17:31 Temperature Pulse Rate 85 Respiratory Rate 18 Blood Pressure Pulse Oximetry 97 Oxygen Delivery Method MDM - Nausea/Vomiting/Diarrhea <Radha Aris Avery MD - Last Filed: 03/18/25 07:09> Lab Data 03/17/25 15:10 03/17/25 15:10 Labs: Lab Results 03/17/25 03/17/25 03/17/25 Range/Units 15:10 16:00 16:00 WBC 9.8 (4.5-11.0) X10^3/uL RBC 4.98 (4.0-5.2) X10^6/uL Hgb 14.2 (12.0-16.0) g/dL Hct 43.1 (36-46) % MCV 86.7 (80-100) fL MCH 28.5 (26-34) PG MCHC 32.9 (30-36) % RDW 13.6 (11.6-14.8) % Plt Count 305 (150-400) X10^3/uL Neut % (Auto) 67.8 (50-75) % Lymph % (Auto) 24.4 L (25-40) % Boundary % (Auto) 6.4 (3-14) % Eos % (Auto) 0.7 L (2-4) % Baso % (Auto) 0.7 (0-2) % Neut # (Auto) 6600 (7071-3917) /uL Lymph # (Auto) 2400 (7638-1054) /uL Boundary # (Auto) 600 (0-900) /uL Eos # (Auto) 100 (0-450) /uL Baso # (Auto) 100 (0-100) /uL Sodium 137 (137-145) mmol/L Potassium 4.6 (3.4-5.1) mmol/L Chloride 105 (98-107) mmol/L Carbon Dioxide 21 L (22-32) mmol/L BUN 7 (7-17) mg/dL Creatinine 0.74 (0.52-1.04) mg/dL Estimated GFR > 60 (>60) mL/min BUN/Creatinine Ratio 9.5 (6-22) Glucose 100 H (70-99) mg/dL Calcium 9.7 (8.4-10.2) mg/dL Magnesium 1.9 (1.6-2.3) mg/dL Total Bilirubin 1.0 (0.2-1.3) mg/dL AST 70 H (14-36) IU/L ALT 84 H (<35) IU/L Alkaline Phosphatase 108 (38-126) U/L Total Protein 8.3 H (6.3-8.2) g/dL Albumin 4.9 (3.5-5.0) g/dL Globulin 3.4 (1.7-4.1) g/dL Albumin/Globulin Ratio 1.4 (1.0-2.8) TSH 4.15 (0.47-4.68) uIU/mL Urine Color Yellow Urine Appearance Clear Urine pH 8.0 Normal (4.5-8.0) Ur Specific Graham 1.010 (1.000-1.035) Urine Protein Negative (Negative) Urine Glucose (UA) Negative (Negative) g/dL Urine Ketones Negative (NEGATIVE) Urine Occult Blood Negative (Negative) Urine Nitrate Negative (Negative) Urine Bilirubin Negative (NEGATIVE) Urine Urobilinogen 0.2 (0.2) E.U./dL Ur Leukocyte Esterase Negative (NEGATIVE) Urine RBC None seen (0-5/HPF) Urine WBC None seen (0-5/HPF) Ur Squamous Epith Cells None seen (0-5/HPF) Urine Bacteria None seen (None) Ur Culture Indicated? Cult not indicated Vol Urine Centrifuged 10ml (spun) U Opiates 300ng/mL cut Negative (Negative) Ur Oxycodone Screen Negative (Negative) Urine Methadone Screen Negative (Negative) Ur Barbiturates Screen Negative (Negative) U Tricyclic Antidepress Negative (Negative) Ur Phencyclidine Scrn Negative (Negative) Ur Amphetamines Screen Negative (Negative) U Methamphetamines Scrn Negative (Negative) Ur MDMA Scrn (Ecstasy) Negative (Negative) U Benzodiazepines Scrn Positive H (Negative) Urine Cocaine Screen Negative (Negative) U Marijuana (THC) Screen Positive H (Negative) Urine Specific Graham Normal (Normal) Ethyl Alcohol < 10 (<10) mg/dL Ur Creatinine Normal (Normal) SARS-CoV-2 (PCR) (Negative) 06/29/25 Range/Units 17:55 WBC (4.5-11.0) X10^3/uL RBC (4.0-5.2) X10^6/uL Hgb (12.0-16.0) g/dL Hct (36-46) % MCV (80-100) fL MCH (26-34) PG MCHC (30-36) % RDW (11.6-14.8) % Plt Count (150-400) X10^3/uL Neut % (Auto) (50-75) % Lymph % (Auto) (25-40) % Boundary % (Auto) (3-14) % Eos % (Auto) (2-4) % Baso % (Auto) (0-2) % Neut # (Auto) (5873-6579) /uL Lymph # (Auto) (1833-2689) /uL Boundary # (Auto) (0-900) /uL Eos # (Auto) (0-450) /uL Baso # (Auto) (0-100) /uL Sodium (137-145) mmol/L Potassium (3.4-5.1) mmol/L Chloride (98-107) mmol/L Carbon Dioxide (22-32) mmol/L BUN (7-17) mg/dL Creatinine (0.52-1.04) mg/dL Estimated GFR (>60) mL/min BUN/Creatinine Ratio (6-22) Glucose (70-99) mg/dL Calcium (8.4-10.2) mg/dL Magnesium (1.6-2.3) mg/dL Total Bilirubin (0.2-1.3) mg/dL AST (14-36) IU/L ALT (<35) IU/L Alkaline Phosphatase (38-126) U/L Total Protein (6.3-8.2) g/dL Albumin (3.5-5.0) g/dL Globulin (1.7-4.1) g/dL Albumin/Globulin Ratio (1.0-2.8) TSH (0.47-4.68) uIU/mL Urine Color Urine Appearance Urine pH (4.5-8.0) Ur Specific Graham (1.000-1.035) Urine Protein (Negative) Urine Glucose (UA) (Negative) g/dL Urine Ketones (NEGATIVE) Urine Occult Blood (Negative) Urine Nitrate (Negative) Urine Bilirubin (NEGATIVE) Urine Urobilinogen (0.2) E.U./dL Ur Leukocyte Esterase (NEGATIVE) Urine RBC (0-5/HPF) Urine WBC (0-5/HPF) Ur Squamous Epith Cells (0-5/HPF) Urine Bacteria (None) Ur Culture Indicated? Vol Urine Centrifuged U Opiates 300ng/mL cut (Negative) Ur Oxycodone Screen (Negative) Urine Methadone Screen (Negative) Ur Barbiturates Screen (Negative) U Tricyclic Antidepress (Negative) Ur Phencyclidine Scrn (Negative) Ur Amphetamines Screen (Negative) U Methamphetamines Scrn (Negative) Ur MDMA Scrn (Ecstasy) (Negative) U Benzodiazepines Scrn (Negative) Urine Cocaine Screen (Negative) U Marijuana (THC) Screen (Negative) Urine Specific Graham (Normal) Ethyl Alcohol (<10) mg/dL Ur Creatinine (Normal) SARS-CoV-2 (PCR) Negative (Negative) Point of Care Testing Test Results Negative MDM Narrative Medical decision making narrative: CC: Severe abdominal pain, Complicating co-morbidities: Has been an issue for 6 months, uncertain etiology possible POTS Data collected from: patient Social determinants of health that may influence the patients condition: Medical records reviewed: Was seen in November for similar abdominal pain complaints. She has a history of peptic ulcer disease IBS a number of years ago was treated for H pylori, November 15 ER visit with similar complaints October 23 late in the evening for abdominal pain complaints October 23 early in the morning for abdominal complaints Most recent abdominal CT was October 23 that did not have any definitive abnormalities to explain the severe pain Within the last year, In reviewing records from [facility], she has had GI workup looking for celiac sprue Recently had EMG testing that was unremarkable Has had cardiac evaluation with echocardiogram Has had MRIs of the brain and cervical spine looking for MS all of which were unremarkable Additional history includes chronic migraines, recurrent syncope possible POTS not sure if this has been completely confirmed, venous insufficiency, significant anxiety, PTSD, psychosocial insomnia, panic attacks, ADHD, depression with anxiety major depression Differential considered: Panic attack, acute psychosis, perforated ulcer, bowel obstruction, Exam documented above, pertinent findings include: Dramatic effective behavior, waving her arms about, pale diaphoretic unable to get vital signs, says it hurts when she stands hurts when she sits hurts when she lays back Lab Test results independently reviewed as above. Pertinent findings: CBC is normal Chemistries are reassuring. AST and ALT are lower than they had been in November 15, 2024 Urine does not suggest urinary tract infection Urine tox screen is positive for benzodiazepines, given in the emergency department, marijuana TSH is appropriate Treatments: A L of fluid, 5 mg of IV diazepam, 10 mg of oral olanzapine Discussion: 34-year-old woman who presents with dramatic effective behavior complaining of abdominal pain so severe she can not sit up she can sit down. Multiple other musculoskeletal complaints. In looking through records she has seen multiple providers has had thorough workup including GI workup, neurologic workup, musculoskeletal workup. Small diagnoses have been uncovered but there was no unifying diagnosis to explain her symptoms. As we are talking even after 5 mg of IV diazepam she is still not able to relax, quivering with anxiety but able to focus and answer questions more effectively. She is anxious all of the time, so anxious that I believe that is causing her significant abdominal pain, she has been beginning to have almost paranoid delusions about her 4-year-old child not being able to breathe because of his asthma night. She is going days with only hours of sleep. Describes come feeling completely overwhelmed. She is not expressing in his suicidal ideation. She notes that she has recently weaned herself slowly off of her venlafaxine, is not quite sure why she is taking gabapentin, finds her ondansetron does not help at all with her nausea, in the past has had some luck with lorazepam but isn't currently taking this, he has been on pantoprazole for her stomach pain, recently finding promethazine has been more effective for stomach pain and nausea and I suspect that is in part some of the psychiatric benefits/side effects of the promethazine. She is taking mirtazapine to help with sleep but again typically sleeps 1-2 hours and then is awake vigilantly watching her son sleep to make sure that he continues breathing. After long discussion we talked about anxiety in the fact that she is essentially in a panic attack that has been going on for months and has not abated at all. She recognizes that that may in fact be the case and is willing to consider inpatient psychiatric care to adjust medications, help her relax, begin counseling so that she can more appropriately deal with her concerns around her sons asthma and be more effective as a mother. She agrees to remainder of medical workup to complete prior to a psychiatric evaluation. Patient was medically cleared, care is turned over to evening physician. Routine medications are ordered including cholestyramine, pantoprazole, dextroamphetamine, and promethazine as needed for nausea (dextroamphetamine is not available on formulary in the hospital) With shared decision-making with the patient we are going to not continue gabapentin or mirtazapine this evening. She has discontinued her venlafaxine and we will not restart it in the emergency department 645pm patient was again re-evaluated, the olanzapine has not had much of an effect. Reviewed medications were going to continue and those that we are going to hold. In terms of continued control of her overall anxiety my next step would be 2 mg of Ativan and following that would be 50-100 mg of Seroquel Patient is voluntary, medically cleared and appropriate for psychiatric admission 03.17.25 @ 1800: Patient was signed out to me by Dr. Avery, patient presenting for recurrent abdominal pain, has been ongoing intermittent for the past several weeks/months. Patient has been medically cleared, patient extremely anxious, most likely symptomology secondary to this. Patient requesting voluntary placement for psych. Patient status post 5 mg Valium as well as 10 mg Zyprexa, we will continue to monitor no new complaints at this time <Anders Mendoza, DO - Last Filed: 03/17/25 21:01> Lab Data Labs: Lab Results 03/17/25 03/17/25 03/17/25 Range/Units 15:10 16:00 16:00 WBC 9.8 (4.5-11.0) X10^3/uL RBC 4.98 (4.0-5.2) X10^6/uL Hgb 14.2 (12.0-16.0) g/dL Hct 43.1 (36-46) % MCV 86.7 (80-100) fL MCH 28.5 (26-34) PG MCHC 32.9 (30-36) % RDW 13.6 (11.6-14.8) % Plt Count 305 (150-400) X10^3/uL Neut % (Auto) 67.8 (50-75) % Lymph % (Auto) 24.4 L (25-40) % Boundary % (Auto) 6.4 (3-14) % Eos % (Auto) 0.7 L (2-4) % Baso % (Auto) 0.7 (0-2) % Neut # (Auto) 6600 (2611-5838) /uL Lymph # (Auto) 2400 (6459-8018) /uL Boundary # (Auto) 600 (0-900) /uL Eos # (Auto) 100 (0-450) /uL Baso # (Auto) 100 (0-100) /uL Sodium 137 (137-145) mmol/L Potassium 4.6 (3.4-5.1) mmol/L Chloride 105 (98-107) mmol/L Carbon Dioxide 21 L (22-32) mmol/L BUN 7 (7-17) mg/dL Creatinine 0.74 (0.52-1.04) mg/dL Estimated GFR > 60 (>60) mL/min BUN/Creatinine Ratio 9.5 (6-22) Glucose 100 H (70-99) mg/dL Calcium 9.7 (8.4-10.2) mg/dL Magnesium 1.9 (1.6-2.3) mg/dL Total Bilirubin 1.0 (0.2-1.3) mg/dL AST 70 H (14-36) IU/L ALT 84 H (<35) IU/L Alkaline Phosphatase 108 (38-126) U/L Total Protein 8.3 H (6.3-8.2) g/dL Albumin 4.9 (3.5-5.0) g/dL Globulin 3.4 (1.7-4.1) g/dL Albumin/Globulin Ratio 1.4 (1.0-2.8) TSH 4.15 (0.47-4.68) uIU/mL Urine Color Yellow Urine Appearance Clear Urine pH 8.0 Normal (4.5-8.0) Ur Specific Graham 1.010 (1.000-1.035) Urine Protein Negative (Negative) Urine Glucose (UA) Negative (Negative) g/dL Urine Ketones Negative (NEGATIVE) Urine Occult Blood Negative (Negative) Urine Nitrate Negative (Negative) Urine Bilirubin Negative (NEGATIVE) Urine Urobilinogen 0.2 (0.2) E.U./dL Ur Leukocyte Esterase Negative (NEGATIVE) Urine RBC None seen (0-5/HPF) Urine WBC None seen (0-5/HPF) Ur Squamous Epith Cells None seen (0-5/HPF) Urine Bacteria None seen (None) Ur Culture Indicated? Cult not indicated Vol Urine Centrifuged 10ml (spun) U Opiates 300ng/mL cut Negative (Negative) Ur Oxycodone Screen Negative (Negative) Urine Methadone Screen Negative (Negative) Ur Barbiturates Screen Negative (Negative) U Tricyclic Antidepress Negative (Negative) Ur Phencyclidine Scrn Negative (Negative) Ur Amphetamines Screen Negative (Negative) U Methamphetamines Scrn Negative (Negative) Ur MDMA Scrn (Ecstasy) Negative (Negative) U Benzodiazepines Scrn Positive H (Negative) Urine Cocaine Screen Negative (Negative) U Marijuana (THC) Screen Positive H (Negative) Urine Specific Graham Normal (Normal) Ethyl Alcohol < 10 (<10) mg/dL Ur Creatinine Normal (Normal) SARS-CoV-2 (PCR) (Negative) 03/17/25 Range/Units 17:55 WBC (4.5-11.0) X10^3/uL RBC (4.0-5.2) X10^6/uL Hgb (12.0-16.0) g/dL Hct (36-46) % MCV (80-100) fL MCH (26-34) PG MCHC (30-36) % RDW (11.6-14.8) % Plt Count (150-400) X10^3/uL Neut % (Auto) (50-75) % Lymph % (Auto) (25-40) % Boundary % (Auto) (3-14) % Eos % (Auto) (2-4) % Baso % (Auto) (0-2) % Neut # (Auto) (3128-3185) /uL Lymph # (Auto) (7649-8108) /uL Boundary # (Auto) (0-900) /uL Eos # (Auto) (0-450) /uL Baso # (Auto) (0-100) /uL Sodium (137-145) mmol/L Potassium (3.4-5.1) mmol/L Chloride (98-107) mmol/L Carbon Dioxide (22-32) mmol/L BUN (7-17) mg/dL Creatinine (0.52-1.04) mg/dL Estimated GFR (>60) mL/min BUN/Creatinine Ratio (6-22) Glucose (70-99) mg/dL Calcium (8.4-10.2) mg/dL Magnesium (1.6-2.3) mg/dL Total Bilirubin (0.2-1.3) mg/dL AST (14-36) IU/L ALT (<35) IU/L Alkaline Phosphatase (38-126) U/L Total Protein (6.3-8.2) g/dL Albumin (3.5-5.0) g/dL Globulin (1.7-4.1) g/dL Albumin/Globulin Ratio (1.0-2.8) TSH (0.47-4.68) uIU/mL Urine Color Urine Appearance Urine pH (4.5-8.0) Ur Specific Graham (1.000-1.035) Urine Protein (Negative) Urine Glucose (UA) (Negative) g/dL Urine Ketones (NEGATIVE) Urine Occult Blood (Negative) Urine Nitrate (Negative) Urine Bilirubin (NEGATIVE) Urine Urobilinogen (0.2) E.U./dL Ur Leukocyte Esterase (NEGATIVE) Urine RBC (0-5/HPF) Urine WBC (0-5/HPF) Ur Squamous Epith Cells (0-5/HPF) Urine Bacteria (None) Ur Culture Indicated? Vol Urine Centrifuged U Opiates 300ng/mL cut (Negative) Ur Oxycodone Screen (Negative) Urine Methadone Screen (Negative) Ur Barbiturates Screen (Negative) U Tricyclic Antidepress (Negative) Ur Phencyclidine Scrn (Negative) Ur Amphetamines Screen (Negative) U Methamphetamines Scrn (Negative) Ur MDMA Scrn (Ecstasy) (Negative) U Benzodiazepines Scrn (Negative) Urine Cocaine Screen (Negative) U Marijuana (THC) Screen (Negative) Urine Specific Graham (Normal) Ethyl Alcohol (<10) mg/dL Ur Creatinine (Normal) SARS-CoV-2 (PCR) Negative (Negative) Point of Care Testing Test Results Negative MDM Narrative Medical decision making narrative: CC: Severe abdominal pain, Complicating co-morbidities: Has been an issue for 6 months, uncertain etiology possible POTS Data collected from: patient Social determinants of health that may influence the patients condition: Medical records reviewed: Was seen in November for similar abdominal pain complaints. She has a history of peptic ulcer disease IBS a number of years ago was treated for H pylori, November 15 ER visit with similar complaints October 23 late in the evening for abdominal pain complaints October 23 early in the morning for abdominal complaints Most recent abdominal CT was October 23 that did not have any definitive abnormalities to explain the severe pain Within the last year, In reviewing records from [facility], she has had GI workup looking for celiac sprue Recently had EMG testing that was unremarkable Has had cardiac evaluation with echocardiogram Has had MRIs of the brain and cervical spine looking for MS all of which were unremarkable Additional history includes chronic migraines, recurrent syncope possible POTS not sure if this has been completely confirmed, venous insufficiency, significant anxiety, PTSD, psychosocial insomnia, panic attacks, ADHD, depression with anxiety major depression Differential considered: Panic attack, acute psychosis, perforated ulcer, bowel obstruction, Exam documented above, pertinent findings include: Dramatic effective behavior, waving her arms about, pale diaphoretic unable to get vital signs, says it hurts when she stands hurts when she sits hurts when she lays back Lab Test results independently reviewed as above. Pertinent findings: CBC is normal Chemistries are reassuring. AST and ALT are lower than they had been in November 15, 2024 Urine does not suggest urinary tract infection Urine tox screen is positive for benzodiazepines, given in the emergency department, marijuana TSH is appropriate Treatments: A L of fluid, 5 mg of IV diazepam, 10 mg of oral olanzapine Discussion: 34-year-old woman who presents with dramatic effective behavior complaining of abdominal pain so severe she can not sit up she can sit down. Multiple other musculoskeletal complaints. In looking through records she has seen multiple providers has had thorough workup including GI workup, neurologic workup, musculoskeletal workup. Small diagnoses have been uncovered but there was no unifying diagnosis to explain her symptoms. As we are talking even after 5 mg of IV diazepam she is still not able to relax, quivering with anxiety but able to focus and answer questions more effectively. She is anxious all of the time, so anxious that I believe that is causing her significant abdominal pain, she has been beginning to have almost paranoid delusions about her 4-year-old child not being able to breathe because of his asthma night. She is going days with only hours of sleep. Describes come feeling completely overwhelmed. She is not expressing in his suicidal ideation. She notes that she has recently weaned herself slowly off of her venlafaxine, is not quite sure why she is taking gabapentin, finds her ondansetron does not help at all with her nausea, in the past has had some luck with lorazepam but isn't currently taking this, he has been on pantoprazole for her stomach pain, recently finding promethazine has been more effective for stomach pain and nausea and I suspect that is in part some of the psychiatric benefits/side effects of the promethazine. She is taking mirtazapine to help with sleep but again typically sleeps 1-2 hours and then is awake vigilantly watching her son sleep to make sure that he continues breathing. After long discussion we talked about anxiety in the fact that she is essentially in a panic attack that has been going on for months and has not abated at all. She recognizes that that may in fact be the case and is willing to consider inpatient psychiatric care to adjust medications, help her relax, begin counseling so that she can more appropriately deal with her concerns around her sons asthma and be more effective as a mother. She agrees to remainder of medical workup to complete prior to a psychiatric evaluation. Patient was medically cleared, care is turned over to evening physician. Routine medications are ordered including cholestyramine, pantoprazole, dextroamphetamine, and promethazine as needed for nausea (dextroamphetamine is not available on formulary in the hospital) With shared decision-making with the patient we are going to not continue gabapentin or mirtazapine this evening. She has discontinued her venlafaxine and we will not restart it in the emergency department 645pm patient was again re-evaluated, the olanzapine has not had much of an effect. Reviewed medications were going to continue and those that we are going to hold. In terms of continued control of her overall anxiety my next step would be 2 mg of Ativan and following that would be 50-100 mg of Seroquel Patient is voluntary, medically cleared and appropriate for psychiatric admission 6. @ 1800: Patient was signed out to me by Dr. Avery, patient presenting for recurrent abdominal pain, has been ongoing intermittent for the past several weeks/months. Patient has been medically cleared, patient extremely anxious, most likely symptomology secondary to this. Patient requesting voluntary placement for psych. Patient status post 5 mg Valium as well as 10 mg Zyprexa, we will continue to monitor no new complaints at this time 2100: Patient re-evaluated, stating that her symptoms have significantly improved she states that she was able to contact her primary care doctor and states that she is in the process of getting help and in outpatient setting, she states that she would rather go home, she is is without SI/HI, patient was given strict return precautions she verbalized understanding of this and agrees to being discharged home with outpatient follow up Discharge Plan Departure Patient Disposition: Home Clinical Impression: Acute stress reaction, Anxiety Instructions: DI for Anxiety -- Adult Activity Restrictions/Additional Instructions: Please follow up with your primary care doctor Please read the discharge instructions sheet carefully and bring all papers to all doctor follow-up visits, as it may contain information that your doctor may want to see. Disease processes change and evolve, if your symptoms worsen or if you develop any new symptoms that are concerning to you please return for evaluation. Your evaluation today does not show any evidence of any life-threatening/serious illnesses requiring admission to the hospital or surgery. Please follow-up with your doctor for re-evaluation in approximately 1 day. Seek immediate medical attention for any worrisome symptoms. *If you do not have a primary care provider please contact the [facility] Resource line at [phone]. They will ask some questions about your medical history and help get you set up with a doctor in the community. Prescriptions: No Action promethazine 25 mg tablet 25 mg PO Q4-6H PRN (Reason: nausea and vomiting) Qty: 10 0RF dextroamphetamine-amphetamine 15 mg tablet 1 tab PO BID Patient Comments: takes at 0600 & 1400 pantoprazole 40 mg tablet,delayed release (DR/EC) 40 mg PO DAILY Qty: 120 3RF lidocaine 5 % adhesive patch,medicated 1 patch topical Q3D gabapentin 300 mg capsule 300 mg PO BID Patient Comments: weaning to take only 1 x daily, can take bid if needed, generally takes in am mirtazapine 15 mg tablet 15 mg PO ONCE PM lorazepam 1 mg tablet 1 mg PO DAILY PRN (Reason: anxiety) ibuprofen 600 mg tablet 600 mg PO Q8H PRN (Reason: pain) Cholestyramine Light 4 gram powder in packet 4 g PO BID Hemorrhoidal(PE-min oil-melany) 0.25-14-74.9 % ointment 1 applic DE BID-QID PRN (Reason: rectal discomfort) Qty: 56 0RF Referrals: Pendergrast,Renetta, [employer] [Primary Care Provider, Medical] Stand Alone Forms: Patient Portal/API ED Sign-out <Radha Avery MD - Last Filed: 03/18/25 07:09> Cosign ED Attending Cosignature Attestation: I was immediately available in the department for consultation throughout this patient's visit. Radha Avery MD
[2025-03-17] MEDS: OLANZapine ODT 10 MG TAB PO (17:44)
[2025-03-17 17:52] LABS: Ethanol (ETOH) < 10 mg/dL (<10)
[2025-03-17 17:58] LABS: UR Morphine/Opiate cutoff 300 Negative (Negative); Ur Creatinine Normal (Normal); Ur Specific Gravity Normal (Normal); Urine Amphetamines Negative (Negative); Urine Barbiturates Negative (Negative); Urine Benzodiazepines Positive (Negative); Urine Cocaine Negative (Negative); Urine MDMA Negative (Negative); Urine Methadone Negative (Negative); Urine Methamphetamines Negative (Negative); Urine Oxycodone Negative (Negative); Urine Phencyclidine Negative (Negative); Urine Tetrahydrocannabinol Positive (Negative); Urine Tricyclic Antidepressant Negative (Negative); Urine pH Normal (Normal)
[2025-03-17 18:16] LABS: COVID19 -Nasal RAPID Negative (Negative)
[2025-03-17 18:24] LABS: TSH w/ Reflex to FT4 4.15 uIU/mL (0.47-4.68)
--- NOTE | 2025-03-17 21:00 | PC.NURSE ---
pt wanting to go home d/t other family members having problems, pt tearful about but open and talking about the family issues that have her anxious, pt does smile and seem eased when discussing her son and how proud she is of him. pt states her son wanted her to come home so he could take care of her (he is 4), she also talked with her doctor and they discussed an out patient plan of care that she is agreeable with pt denies any SI
== END 2025-03-17 21:19 | disposition home or self-care (01) ==
PROVIDERS: Emergency Medicine; Emergency Provider Student in an Organized Health Care Education/Training Program; Family Provider Nurse Practitioner Family; PCP Nurse Practitioner Family
DX: F41.9 Anxiety disorder, unspecified (principal); F43.0 Acute stress reaction; R11.2 Nausea with vomiting, unspecified; R07.9 Chest pain, unspecified
CPT/HCPCS: 36415; 80053; 80305; 80320; 81001; 81025; 83735; 84443; 85025; 87635; 96361; 96374; 99284; J3360

== ENCOUNTER 2025-04-18 11:10 | Emergency (ER) | payer OTHER, SELFPAY ==
[2025-04-18 11:20] VITALS: BP 112/72; PULSE 86; RESP 20; TEMP 36.9; O2SAT 99; BMI 35.1
[2025-04-18 11:39] LABS: Add Manual Diff / Slide Review NO; Hematocrit 41.4 % (36-46); Hemoglobin 13.6 g/dL (12.0-16.0); Lymphocytes Absolute Auto 2400 /uL (1100-4500); Mean Corpuscular HGB Conc 32.9 % (30-36); Mean Corpuscular Hemoglobin 28.5 PG (26-34); Mean Corpuscular Volume 86.6 fL (80-100); Platelet Count 328 X10^3/uL (150-400)
[2025-04-18 11:50] LABS: Alanine Aminotransferase 215 IU/L (<35); Albumin 4.7 g/dL (3.5-5.0); Albumin Globulin Ratio 1.5 (1.0-2.8); Alkaline Phosphatase 200 U/L (38-126); Blood Urea Nitrogen 10 mg/dL (7-17); Calcium 9.3 mg/dL (8.4-10.2); Carbon Dioxide 27 mmol/L (22-32); Chloride 101 mmol/L (98-107); Estimated Glomerular Filt Rate > 60 mL/min (>60); Globulin 3.2 g/dL (1.7-4.1); Glucose 93 mg/dL (70-99); HEMOLYSIS < 15 (0-50); Potassium 4.0 mmol/L (3.4-5.1); Sodium 138 mmol/L (137-145); Total Protein 7.9 g/dL (6.3-8.2)
== END 2025-04-18 12:49 | disposition left against medical advice (07) ==
PROVIDERS: Emergency Provider Emergency Medicine; Family Provider Nurse Practitioner Family; PCP Nurse Practitioner Family
DX: M79.671 Pain in right foot (principal)
CPT/HCPCS: 80053; 85025; 99281